=== PATIENT | male | born 1960 | race Caucasian/White ===

== ENCOUNTER 2018-12-16 17:23 | Inpatient (IN) | payer MEDICARE, MEDICAID ==
[2018-12-16] MEDS ORDERED: Sodium Chloride 0.9% 1,000 ML IV STA ×2 (17:47→18:04)
[2018-12-16 17:59] LABS: VENOUS BLOOD GAS BASE EXCESS -9.6 mmol/L (0.0-2.0); VENOUS BLOOD GAS PCO2 32 mmHg (40-60); VENOUS BLOOD GAS PO2 23 mm/Hg (30-55)
[2018-12-16 18:06] LABS: BASO % 0.2 % (0.0-2.0); LYMPH # 1.5 K/uL (1.0-4.3); LYMPH % 10.9 % (20.0-40.0); MEAN CELL VOLUME 102.7 fl (80.0-94.0); MEAN CORPUSCULAR HEMOGLOBIN 32.1 pg (27.0-31.0); MEAN CORPUSCULAR HGB CONC 31.3 g/dL (33.0-37.0); MEAN PLATELET VOLUME 8.8 fl (7.2-11.7); MONO # 0.7 K/uL (0.0-0.8); MONO % 5.2 % (0.0-10.0); NEUT # 11.4 K/uL (1.8-7.0); NEUT % 83.7 % (50.0-75.0); NRBC % 4.2 % (0.0-0.0); RBC 1.34 Mil/uL (4.40-5.90); RED CELL DISTRIBUTION WIDTH 21.1 % (11.5-14.5); WHITE BLOOD COUNT 13.6 K/uL (4.8-10.8)
[2018-12-16] MEDS ORDERED: Potassium CL 10 MEQ/50 ML 50 ML IVPB ONE (18:08)
[2018-12-16] MEDS ORDERED: Potassium Chl 20 mEq in NS 1,000 ML IV STA (18:09)
[2018-12-16 18:12] LABS: INR 1.2; PROTHROMBIN TIME 13.1 Seconds (9.8-13.1)
--- NOTE | 2018-12-16 18:13 | ED PDOC ---
HPI: General Adult Time Seen by Provider: 12/16/18 17:32 Chief Complaint (Nursing): Altered Mental Status Chief Complaint (Provider): Weakness History Per: Family (sister) History/Exam Limitations: clinical condition Onset/Duration Of Symptoms: Days (x1 week) Current Symptoms Are (Timing): Still Present Additional Complaint(s): 58 year old male with a history of schizophrenia, anxiety and depression presents to the ED with weakness. All history was obtained from sister due to patients clinical condition. As per sister, patient stated he was going on a diet a week ago for which he no longer needed to eat. Patient has not eaten for a week but drinks a lot of water and has been extremely thirsty. Two days ago, patient attempted to get out of bed but fell. He has not attempted getting out of bed since because he is too weak. Patient denies any pain. He is unable to clarify why he went on the diet. Patient was formerly obese according to sister, but he has lost a tremendous amount of weight over the last 2 years. PMD: Yvette Morris Past Medical History Reviewed: Historical Data, Nursing Documentation, Vital Signs Vital Signs: Last Vital Signs Temp 98.4 F 12/16/18 18:01 Pulse 96 H 12/16/18 18:01 Resp 20 12/16/18 18:01 BP 81/42 L 12/16/18 18:01 Pulse Ox 100 12/16/18 18:01 Primary Care Provider: Non [facility] Provider, - Medical History PMH: Anemia, Anxiety, Depression, HTN, Schizophrenia Denies: Chronic Kidney Disease - Surgical History Surgical History: No Surg Hx - Family History Family History: States: Hypertension - Social History Current smoker - smoking cessation education provided: Yes Ex-Smoker (has not smoked in the last 12 months): No Alcohol: None Drugs: Denies - Immunization History Hx Tetanus Toxoid Vaccination: No Hx Influenza Vaccination: No Hx Pneumococcal Vaccination: No - Home Medications Home Medications: Ambulatory Orders Medication Instructions Recorded Aspirin [Aspirin Low Dose] 81 mg PO DAILY 04/06/15 Clonazepam 1 mg PO HS 04/06/15 Enalapril Maleate 20 mg PO DAILY 04/06/15 Ergocalciferol (Vitamin D2) 5,000 units PO QWK 04/06/15 [Vitamin D2] Fenofibrate 160 mg PO HS 04/06/15 Olanzapine 20 mg PO DAILY 04/06/15 - Allergies Allergies/Adverse Reactions: Allergies Allergy/AdvReac Type Severity Reaction Status Date / Time No Known Allergies Allergy Verified 04/06/15 12:04 Review of Systems Review Of Systems: ROS cannot be obtained secondary to pt's inabilty to answer questions. Physical Exam - Reviewed Nursing Documentation Reviewed: Yes Vital Signs Reviewed: Yes - Physical Exam Appears: Positive for: No Acute Distress (cachectic, unkempt ) Head Exam: Positive for: NORMOCEPHALIC (with temporal wasting ) Skin: Positive for: Normal Color (but poor skin turgor ) Eye Exam: Positive for: EOMI, PERRL ENT: Positive for: Other (dry mucous membranes) Neck: Positive for: Painless ROM, Trachea Midline Cardiovascular/Chest: Positive for: Regular Rate, Rhythm. Negative for: Murmur Respiratory: Positive for: Normal Breath Sounds. Negative for: Respiratory Distress Gastrointestinal/Abdominal: Positive for: Soft. Negative for: Tenderness Rectal: Positive for: Rectal Tone Is: (normal). Negative for: Black Stool, Other (gross blood) Extremity: Positive for: Other (poor muscle bulk) Lymphatic: Negative for: Adenopathy Neurological/Psych: Positive for: Awake, Alert, Oriented (x1), Other (4+/5 strength in all extremities). Negative for: Motor/Sensory Deficits, Facial Droop - Laboratory Results Result Diagrams: 12/17/18 04:35 12/17/18 04:35 Lab Results: pO2 23 mm/Hg (30-55) L 12/16/18 17:50 VBG pH 7.30 (7.32-7.43) L 12/16/18 17:50 VBG pCO2 32 mmHg (40-60) L 12/16/18 17:50 VBG HCO3 15.7 mmol/L 12/16/18 17:50 VBG Total CO2 16.7 mmol/L (22-28) L 12/16/18 17:50 VBG O2 Sat (Calc) 44.4 % (40-65) 12/16/18 17:50 VBG Base Excess -9.6 mmol/L (0.0-2.0) L 12/16/18 17:50 VBG Potassium 3.4 mmol/L (3.6-5.2) L 12/16/18 17:50 Sodium 143.0 mmol/L (132-148) 12/16/18 17:50 Chloride 114.0 mmol/L (98-107) H 12/16/18 17:50 Glucose 217 mg/dL (75-110) H 12/16/18 17:50 Lactate 4.1 mmol/L (0.7-2.1) H* 12/16/18 17:50 FiO2 21.0 % 12/16/18 17:50 Crit Value Called To hellen Conteh md 12/16/18 17:50 Crit Value Called By Carlos Manuel mas 12/16/18 17:50 Crit Value Read Back Y 12/16/18 17:50 Blood Gas Notified Time 17512/16/18 17:50 - ECG O2 Sat by Pulse Oximetry: 100 (RA) Pulse Ox Interpretation: Normal - Radiology X-Ray Interpretation: No Acute Disease - Critical Care Total Time (In Min): 30 Documented Critical Care: Time excludes all time spent performint seperately bi llable procedures Medical Decision Making Medical Decision Making: Time: 1740 Impression: weakness Differentials include but are not limited to: Failure to thrive, dehydration, electrolyte abnormalities, DKA, decompensated schizophrenia, anemia Plan: --Type and screen --VBG --CT Head w/o contrast --EKG --Alcohol serum --Ammonia --BNP --CMP --Lipase --Magnesium --Phosphorus --TSH --Troponin --U dip --CBC --PTT --PT/INR --CXR --Glucose --IV fluids --blood culture Time: 1803 --VBG demonstrated lactate >4 --Code sepsis activated. Urine culture and urinalysis ordered. 1834 --Hgb critically low. elevated lactic acid likely due to severe anemia and not acute infection. --DW sister findings and need for transfusion. She reports pt has history of this and had transfusion in the past, up to "6 bags". --PITER [facility] Coordinator for ICU placement --PITER [facility] for Dr Morris PMD 1999 --PITER [facility]. --Due to current renal function, unable to have CT with IV contrast as requested. Scribe Attestation: Documented by Edna Martini, acting as a scribe for Hellen Conteh MD. Provider Scribe Attestation: All medical record entries made by the Scribe were at my direction and personally dictated by me. I have reviewed the chart and agree that the record accurately reflects my personal performance of the history, physical exam, medical decision making, and the department course for this patient. I have also personally directed, reviewed, and agree with the discharge instructions and disposition. Disposition - Clinical Impression Clinical Impression: Severe anemia, Schizophrenia - Disposition Disposition Time: 18:45 Condition: CRITICAL - Pt Status Changed To: Hospital Disposition Of: Inpatient - Admit Certification Admit to Inpatient:: After my assessment, the patient will require hospitalization for at least two midnights. This is because of the severity of symptoms shown, intensity of services needed, and/or the medical risk in this patient being treated as an outpatient. - POA Present On Arrival: Falls Or Trauma
[2018-12-16 18:14] LABS: HEMOGLOBIN 4.3 g/dL (12.0-18.0)
[2018-12-16] MEDS ORDERED: Potassium CL 10 MEQ/50 ML 50 ML ONE (18:17)
--- NOTE | 2018-12-16 18:18 | RAD ---
Date of service: 12/16/2018 HISTORY: weakness COMPARISON: No prior. FINDINGS: LUNGS: No active pulmonary disease. PLEURA: No significant pleural effusion identified, no pneumothorax apparent. CARDIOVASCULAR: No atherosclerotic calcification present Normal. OSSEOUS STRUCTURES: No significant abnormalities. VISUALIZED UPPER ABDOMEN: Normal. OTHER FINDINGS: None. IMPRESSION: No active disease.
[2018-12-16 18:32] LABS: ALB/GLOB RATIO 1.2 (1.0-2.1); ALBUMIN 3.2 g/dL (3.5-5.0); ALT/SGPT 31 U/L (21-72); AST/SGOT 20 U/L (17-59); BLOOD UREA NITROGEN 92 mg/dl (9-20); CALCIUM 8.6 mg/dL (8.4-10.2); GFR NON-AFRICAN AMERICAN 39; LIPASE 250 U/L (23-300)
[2018-12-16 18:43] LABS: B-TYPE NATRIURETIC PEPTIDE 400 pg/ml (0-900)
--- NOTE | 2018-12-16 19:11 | CT ---
Date of service: 12/16/2018 PROCEDURE: CT HEAD WITHOUT CONTRAST. HISTORY: severe weakness COMPARISON: None available. TECHNIQUE: Axial computed tomography images were obtained through the head/brain without intravenous contrast. Supplemental Coronal and Sagittal projections created and reviewed. Radiation dose: Total exam DLP = 815.63 mGy-cm. This CT exam was performed using one or more of the following dose reduction techniques: Automated exposure control, adjustment of the mA and/or kV according to patient size, and/or use of iterative reconstruction technique. FINDINGS: HEMORRHAGE: No intracranial hemorrhage. BRAIN: No mass effect or edema. Cortical and cerebellar atrophy, periventricular small vessel disease. VENTRICLES: Unremarkable. No hydrocephalus. CALVARIUM: Unremarkable. PARANASAL SINUSES: Unremarkable as visualized. No significant inflammatory changes. MASTOID AIR CELLS: Unremarkable as visualized. No inflammatory changes. OTHER FINDINGS: None. IMPRESSION: No acute intracranial abnormalities. No significant findings to account for the clinical presentation.
[2018-12-16 19:39] LABS: PARTIAL THROMBOPLASTIN TIME 19.2 Seconds (25.6-37.1)
[2018-12-16 20:23] LABS: SQUAMOUS EPITHIAL < 1 /hpf (0-5); URINE BILIRUBIN NEGATIVE (NEGATIVE); URINE BLOOD SMALL (NEGATIVE); URINE CLARITY CLOUDY (Clear); URINE COLOR YELLOW (YELLOW); URINE GLUCOSE (UA) NEG (NEGATIVE); URINE HYALINE CAST >20 /hpf (0-2); URINE LEUKOCYTE ESTERASE TRACE Leu/uL (Negative); URINE PROTEIN 30 mg/dL (NEGATIVE); URINE UROBILINOGEN 0.2-1.0 mg/dL (0.2-1.0)
[2018-12-16] MEDS ORDERED: Potassium Chl 20 mEq in NS 1,000 ML IV ONE (20:45)
--- NOTE | 2018-12-16 21:42 | CP.CCUPN ---
CCU Subjective - Physician Review Subjective (Free Text): Available ER notes, labs, and CXR reviewed, no family available, lethargic patient, poor historian: 58M BIBA from home with reports of generalized weakness , recent falls and AMS according to sister. In ER, initial vitals were normotensive, and then became hypotensive 80/40 an hour later. Given 3 liters fluid challenge and after lactate returned elevated to 4.1, Code Sepsis called. Additional fluids had marginal effects, and when HGb returned at 4.3, PRBCs ordered. No c/o of abdominal discomfort, melena, BRBPR, N/ V were reported. PMH significant for recent Obesity and undergoing extreme dieting with weight loss summary of over 200lbs over the past year; HTN, anemia due to bleeding DU in 2013, required IR embolization of GDA bleed. Psych history includes Schizophrenia with suicide attempts and, major depression. Presently appears lethargic, slow verbalizations to questions, pale and chronically ill. VS reviewed; Afebrile, HR 100, BP 95/50, RR 20, 100% on RA ROS: No other pertinent negs or positive on 10+ system review obtainable. Allergies: NKDA Last known Meds: ASA< Clonazepam, Enalapril, Vit D, Fenofibrate, Olanzapine. Other PMSFH: All other Nursing and physician documentation reviewed to date; no new pertinent info noted relevant to current medical problems. EXAM- HEENT: no icterus, pupils equal, 3 mm and reactive, no gaze preference, no nystagmus NECK: no visible JVD, supple, carotids equal upstroke bilat/no bruits CHEST: decreased BS L base, no wheezes audible HEART: regular, distant, S1S2, no murmur audible, no rubs. ABD: soft, minimal distention, no tenderness; BS hypoactive EXT: no calf tenderness, no palpable cords, distal pulses intact and symmetrical, no cyanosis, no clubbing. NEURO: + tone, withdraws to pain all extremities, no clonus. SKIN: no rashes LABS: WBC= 13.6 HGB= 4.3 with macrocytic indicies PLTs = 277K Coags: INR =1.2, PTT low normal. 7.30/32/253 with VBG 44.4% sat'n Lactate= 4.1 Na= 141 K= 3.5 Cl= 114 HCO3= 14 BUN/Cr= 92/1.8 BS= 274 Trop negative x1. BNP = 400 Lipase normal Ammonia normal CXR: (my interp) clear bilat, no obvious consolidation. EKG: Sinus 95/min, normal axis, r/o posterior wall SD IMPRESSION / MAJOR PROBLEMS NOW: 1. Severe Anemia , r/o GI Bleed, versus severe malnutrition 2. Lactic Acidosis 2' hypovolemic shock, no evidence of Severe Sepsis / Shock . 3. Azotemia / Dehydration, no h/o CKD 4. Metabolic Encephalopathy, r/o other occult drug/ medication effect 5. h/o Psychoactive Disorder PLAN: 1. IV fluid challenge, PRBCs already ordered in ER. 2. Panculture, repeat serial lactates within 4 hours from initial study. No gross hypoperfusional state noted. If lactates do not improve, ECHO for LV fx. 3. Empiric abx coverage in case of Upper GI Bleed. No clinical stigmata nor h/o portal HTN / variceal hemorrhage 4. PPi drip, GI consult eval. 5. Vit B12 / Folate levels, TSH , Cortisol testing. 6. Urine Tox / Coma panel testing; CT Brain. 7. Serial Trop testing and repeat EKG. 8. See orders.
[2018-12-16] MEDS ORDERED: Piperacillin/Tazobact 3.375 GM in Sodium Chloride 0.9% 100 ML IVPB STA (21:48)
[2018-12-17] MEDS: Insulin Regular 100 units/ml SC SCH ×5 (00:05→22:55)
[2018-12-17] MEDS: Pantoprazole 40 MG in Sodium Chloride 0.9% 100 ML IVPB SCH ×5 (01:45→23:15)
--- NOTE | 2018-12-17 02:00 | PCM.PROC ---
Procedures Attestation:: I certify that I have explained the specified Operation(s) or Procedure(s), risks, benefits and reasonable alternatives to the Patient and/or other person responsible. The opportunity was given to ask questions and all questions answered - Central Line Placement Right Femoral Triple Lumen Catheter Aseptic technique was employed throughout the procedure: Hand Hygiene done prior to procedure, Full sterile barriers (mask, hair cover, sterile gown, sterile gloves), Full body sterile drape, Chloraprep Antiseptic: 2 minute prep for Femoral CVP Time Out Performed: No Pt. Placed on Pulse Ox Monitor: Yes Central Line Prep: Chlorhexidine-Alcohol Combination Local Anesthesia Used: Lidocaine 2% Amount of Anesthesia Used (mls): 5 Ultrasound Used for Placement: Yes Central Line Lumen Inserted: triple Central Line Length: 20 cm Post Procedure: Sutured in Place, Good Blood Return, All Ports Aspirated, Flushed, Capped, Sterile Dressing Applied Secured by: Suture Post procedure dressing: Clear vapor permeable Post Procedure X-Ray: No Patient Tolerated Procedure: Well, No Complications Immediate Complications: None Additional Comments: Central line placed to infuse vasopressors and medications.
[2018-12-17] MEDS: Lactated Ringer's 1,000 ML IV SCH ×3 (02:16→23:13)
[2018-12-17 03:03] VITALS: BMI 19.6
[2018-12-17] MEDS ORDERED: Sodium Chloride 0.9% 1,000 ML IV SCH (03:15)
[2018-12-17 06:49] LABS: BASO % 0.3 % (0.0-2.0); EOS % 0.1 % (0.0-4.0); LYMPH % 17.6 % (20.0-40.0); MEAN CELL VOLUME 93.6 fl (80.0-94.0); MEAN CORPUSCULAR HEMOGLOBIN 30.6 pg (27.0-31.0); MEAN CORPUSCULAR HGB CONC 32.7 g/dL (33.0-37.0); MEAN PLATELET VOLUME 8.8 fl (7.2-11.7); MONO # 1.1 K/uL (0.0-0.8); MONO % 9.3 % (0.0-10.0); NEUT # 8.5 K/uL (1.8-7.0); NEUT % 72.7 % (50.0-75.0); NRBC % 0.5 % (0.0-0.0); RBC 1.73 Mil/uL (4.40-5.90); RED CELL DISTRIBUTION WIDTH 16.9 % (11.5-14.5); WHITE BLOOD COUNT 11.6 K/uL (4.8-10.8)
[2018-12-17 06:59] LABS: HEMOGLOBIN 5.3 g/dL (12.0-18.0)
[2018-12-17 07:18] LABS: LDL CHOLESTEROL 44 mg/dL (0-129)
--- NOTE | 2018-12-17 08:08 | CP.CCUPN ---
CCU Subjective - Physician Review Events Since Last Encounter (Free Text): Patient awake, no distress, no fever, no vomiting, no pressors, events reviewed CCU Objective - Vital Signs / Intake & Output Vital Signs (Last 4 hours): Vital Signs Pulse Resp BP Pulse Ox 12/17/18 07:00 98 H 24 89/46 L 100 12/17/18 06:00 94 H 20 90/47 L 98 12/17/18 05:00 87 21 109/51 L 100 Intake and Output (Last 8hrs): Intake & Output 12/16/18 12/17/18 12/17/18 22:59 06:59 14:59 Intake Total 0 5925 Output Total 800 Balance 0 5125 Weight 131 lb 138 lb Intake: IV 5214 Intake, Piggyback 51 TPN/PPN 10 Blood Product 0 550 Red Blood Cells Cpd As1 225 Lr Unit [id number] Red Blood Cells Cpd As1 0 325 Lr Unit [id number] Other 100 Red Blood Cells Cpd As1 100 Lr Unit [id number] Output: Urine 800 2-way Urethral 800 - Physical Exam Head: Positive for: Atraumatic, Normocephalic Pupils: Positive for: PERRL Extroacular Muscles: Positive for: EOMI Conjunctiva: Positive for: Normal Mouth: Positive for: Dry Pharnyx: Positive for: Normal Nose (External): Positive for: Atraumatic Neck: Positive for: Normal Range of Motion Respiratory/Chest: Positive for: Clear to Auscultation Cardiovascular: Positive for: Regular Rate and Rhythm Abdomen: Positive for: Normal Bowel Sounds Upper Extremity: Positive for: Normal Inspection Lower Extremity: Positive for: Normal Inspection Psychiatric: Positive for: Alert - Medications Active Medications: Active Medications Generic Name Dose Route Start Last Admin Trade Name Freq PRN Reason Stop Dose Admin Pantoprazole Sodium 40 mg/ 100 mls @ 20 mls/hr 12/16/18 18:45 12/17/18 04:12 Sodium Chloride IVPB 20 mls/hr Q5H MATT Administration 8 MG/HR Piperacillin Sod/Tazobactam 100 mls @ 100 mls/hr 12/17/18 01:00 12/17/18 01:30 Sod 2.25 gm/ Sodium Chloride IVPB 100 mls/hr Q8 MATT Administration Protocol Lactated Ringer's 1,000 mls @ 100 mls/hr 12/16/18 22:00 12/17/18 02:16 Lactated Ringer's IV 100 mls/hr .Q10H MATT Administration Norepinephrine Bitartrate 4 mg 254 mls @ 9.53 mls/hr 12/17/18 01:45 12/17/18 03:30 / Dextrose IV 10 mcg/min .Q24H MATT 38.1 mls/hr Titration Protocol 2.5 MCG/MIN Sodium Chloride 1,000 mls @ 1,000 mls/hr 12/17/18 03:15 12/17/18 03:14 Sodium Chloride 0.9% IV 12/18/18 03:02 1,000 mls/hr .Q1H MATT Administration Insulin Human Regular 0 units 12/16/18 23:00 12/17/18 07:41 Humulin R SC Not Given ACCU-CHECK MATT Protocol - Patient Studies Lab Studies: Lab Studies 12/17/18 12/17/18 12/17/18 Range/Units 04:35 04:35 04:35 WBC 11.6 H (4.8-10.8) K/uL RBC 1.73 L (4.40-5.90) Mil/uL Hgb 5.3 L* (12.0-18.0) g/dL Hct 16.2 L (35.0-51.0) % MCV 93.6 D (80.0-94.0) fl MCH 30.6 (27.0-31.0) pg MCHC 32.7 L (33.0-37.0) g/dL RDW 16.9 H (11.5-14.5) % Plt Count 163 D (130-400) K/uL MPV 8.8 (7.2-11.7) fl Neut % (Auto) 72.7 (50.0-75.0) % Lymph % (Auto) 17.6 L (20.0-40.0) % [place] % (Auto) 9.3 (0.0-10.0) % Eos % (Auto) 0.1 (0.0-4.0) % Baso % (Auto) 0.3 (0.0-2.0) % Neut # (Auto) 8.5 H (1.8-7.0) K/uL Lymph # (Auto) 2.0 (1.0-4.3) K/uL [place] # (Auto) 1.1 H (0.0-0.8) K/uL Eos # (Auto) 0.0 (0.0-0.7) K/uL Baso # (Auto) 0.0 (0.0-0.2) K/uL PT (9.8-13.1) Seconds INR APTT (25.6-37.1) Seconds pO2 (30-55) mm/Hg VBG pH (7.32-7.43) VBG pCO2 (40-60) mmHg VBG HCO3 mmol/L VBG Total CO2 (22-28) mmol/L VBG O2 Sat (Calc) (40-65) % VBG Base Excess (0.0-2.0) mmol/L VBG Potassium (3.6-5.2) mmol/L Sodium (132-148) mmol/L Chloride (98-107) mmol/L Glucose (75-110) mg/dL Lactate (0.7-2.1) mmol/L FiO2 % Crit Value Called To Crit Value Called By Crit Value Read Back Blood Gas Notified Time Potassium (3.6-5.0) MMOL/L Carbon Dioxide (22-30) mmol/L Anion Gap (10-20) BUN (9-20) mg/dl Creatinine (0.8-1.5) mg/dl Est GFR ( Amer) Est GFR (Non-Af Amer) POC Glucose (mg/dL) (65-110) mg/dL Random Glucose (75-110) mg/dL Lactic Acid 0.8 (0.7-2.1) mmol/L Calcium (8.4-10.2) mg/dL Phosphorus (2.5-4.5) mg/dl Magnesium (1.6-2.3) MG/DL Total Bilirubin (0.2-1.3) mg/dl AST (17-59) U/L ALT (21-72) U/L Alkaline Phosphatase (38-126) U/L Ammonia (9-33) umol/L Troponin I (0.00-0.120) ng/mL NT-Pro-B Natriuret Pep (0-900) pg/ml Total Protein (6.3-8.2) G/DL Albumin (3.5-5.0) g/dL Globulin (2.2-3.9) gm/dL Albumin/Globulin Ratio (1.0-2.1) LDL Cholesterol Direct 44 (0-129) mg/dL Lipase (23-300) U/L Vitamin B12 185 L (239-931) pg/mL TSH 3rd Generation 0.52 (0.46-4.68) mIU/ML Venous Blood Potassium (3.6-5.2) mmol/L Urine Color (YELLOW) Urine Clarity (Clear) Urine pH (5.0-8.0) Ur Specific [place] (1.003-1.030) Urine Protein (NEGATIVE) mg/dL Urine Glucose (UA) (NEGATIVE) mg/dL Urine Ketones (NEGATIVE) mg/dL Urine Blood (NEGATIVE) Urine Nitrate (NEGATIVE) Urine Bilirubin (NEGATIVE) Urine Urobilinogen (0.2-1.0) mg/dL Ur Leukocyte Esterase (Negative) Ever/uL Urine RBC (Auto) (0-3) /hpf Urine Microscopic WBC (0-5) /hpf Ur Squamous Epith Cells (0-5) /hpf Hyaline Casts (0-2) /hpf Alcohol, Quantitative (0-10) mg/dl Blood Type Antibody Screen Crossmatch BBK History Checked 12/16/18 12/16/18 12/16/18 Range/Units 21:46 20:15 18:21 WBC (4.8-10.8) K/uL RBC (4.40-5.90) Mil/uL Hgb (12.0-18.0) g/dL Hct (35.0-51.0) % MCV (80.0-94.0) fl MCH (27.0-31.0) pg MCHC (33.0-37.0) g/dL RDW (11.5-14.5) % Plt Count (130-400) K/uL MPV (7.2-11.7) fl Neut % (Auto) (50.0-75.0) % Lymph % (Auto) (20.0-40.0) % [place] % (Auto) (0.0-10.0) % Eos % (Auto) (0.0-4.0) % Baso % (Auto) (0.0-2.0) % Neut # (Auto) (1.8-7.0) K/uL Lymph # (Auto) (1.0-4.3) K/uL [place] # (Auto) (0.0-0.8) K/uL Eos # (Auto) (0.0-0.7) K/uL Baso # (Auto) (0.0-0.2) K/uL PT (9.8-13.1) Seconds INR APTT (25.6-37.1) Seconds pO2 (30-55) mm/Hg VBG pH (7.32-7.43) VBG pCO2 (40-60) mmHg VBG HCO3 mmol/L VBG Total CO2 (22-28) mmol/L VBG O2 Sat (Calc) (40-65) % VBG Base Excess (0.0-2.0) mmol/L VBG Potassium (3.6-5.2) mmol/L Sodium (132-148) mmol/L Chloride (98-107) mmol/L Glucose (75-110) mg/dL Lactate (0.7-2.1) mmol/L FiO2 % Crit Value Called To Crit Value Called By Crit Value Read Back Blood Gas Notified Time Potassium (3.6-5.0) MMOL/L Carbon Dioxide (22-30) mmol/L Anion Gap (10-20) BUN (9-20) mg/dl Creatinine (0.8-1.5) mg/dl Est GFR ( Amer) Est GFR (Non-Af Amer) POC Glucose (mg/dL) (65-110) mg/dL Random Glucose (75-110) mg/dL Lactic Acid 2.8 H (0.7-2.1) mmol/L Calcium (8.4-10.2) mg/dL Phosphorus (2.5-4.5) mg/dl Magnesium (1.6-2.3) MG/DL Total Bilirubin (0.2-1.3) mg/dl AST (17-59) U/L ALT (21-72) U/L Alkaline Phosphatase (38-126) U/L Ammonia < 9 L (9-33) umol/L Troponin I (0.00-0.120) ng/mL NT-Pro-B Natriuret Pep (0-900) pg/ml Total Protein (6.3-8.2) G/DL Albumin (3.5-5.0) g/dL Globulin (2.2-3.9) gm/dL Albumin/Globulin Ratio (1.0-2.1) LDL Cholesterol Direct (0-129) mg/dL Lipase (23-300) U/L Vitamin B12 (239-931) pg/mL TSH 3rd Generation (0.46-4.68) mIU/ML Venous Blood Potassium (3.6-5.2) mmol/L Urine Color Yellow (YELLOW) Urine Clarity Cloudy (Clear) Urine pH 5.0 (5.0-8.0) Ur Specific [place] 1.019 (1.003-1.030) Urine Protein 30 (NEGATIVE) mg/dL Urine Glucose (UA) Neg (NEGATIVE) mg/dL Urine Ketones Negative (NEGATIVE) mg/dL Urine Blood Small (NEGATIVE) Urine Nitrate Negative (NEGATIVE) Urine Bilirubin Negative (NEGATIVE) Urine Urobilinogen 0.2-1.0 (0.2-1.0) mg/dL Ur Leukocyte Esterase Trace (Negative) Ever/uL Urine RBC (Auto) < 1 (0-3) /hpf Urine Microscopic WBC 1 (0-5) /hpf Ur Squamous Epith Cells < 1 (0-5) /hpf Hyaline Casts >20 H (0-2) /hpf Alcohol, Quantitative (0-10) mg/dl Blood Type Antibody Screen Crossmatch BBK History Checked 12/16/18 12/16/18 12/16/18 Range/Units 17:58 17:55 17:51 WBC 13.6 H (4.8-10.8) K/uL RBC 1.34 L (4.40-5.90) Mil/uL Hgb 4.3 L* (12.0-18.0) g/dL Hct 13.7 L (35.0-51.0) % MCV 102.7 H (80.0-94.0) fl MCH 32.1 H (27.0-31.0) pg MCHC 31.3 L (33.0-37.0) g/dL RDW 21.1 H (11.5-14.5) % Plt Count 277 (130-400) K/uL MPV 8.8 (7.2-11.7) fl Neut % (Auto) 83.7 H (50.0-75.0) % Lymph % (Auto) 10.9 L (20.0-40.0) % [place] % (Auto) 5.2 (0.0-10.0) % Eos % (Auto) 0.0 (0.0-4.0) % Baso % (Auto) 0.2 (0.0-2.0) % Neut # (Auto) 11.4 H (1.8-7.0) K/uL Lymph # (Auto) 1.5 (1.0-4.3) K/uL [place] # (Auto) 0.7 (0.0-0.8) K/uL Eos # (Auto) 0.0 (0.0-0.7) K/uL Baso # (Auto) 0.0 (0.0-0.2) K/uL PT (9.8-13.1) Seconds INR APTT (25.6-37.1) Seconds pO2 (30-55) mm/Hg VBG pH (7.32-7.43) VBG pCO2 (40-60) mmHg VBG HCO3 mmol/L VBG Total CO2 (22-28) mmol/L VBG O2 Sat (Calc) (40-65) % VBG Base Excess (0.0-2.0) mmol/L VBG Potassium (3.6-5.2) mmol/L Sodium (132-148) mmol/L Chloride (98-107) mmol/L Glucose (75-110) mg/dL Lactate (0.7-2.1) mmol/L FiO2 % Crit Value Called To Crit Value Called By Crit Value Read Back Blood Gas Notified Time Potassium (3.6-5.0) MMOL/L Carbon Dioxide (22-30) mmol/L Anion Gap (10-20) BUN (9-20) mg/dl Creatinine (0.8-1.5) mg/dl Est GFR ( Amer) Est GFR (Non-Af Amer) POC Glucose (mg/dL) 274 H (65-110) mg/dL Random Glucose (75-110) mg/dL Lactic Acid (0.7-2.1) mmol/L Calcium (8.4-10.2) mg/dL Phosphorus (2.5-4.5) mg/dl Magnesium (1.6-2.3) MG/DL Total Bilirubin (0.2-1.3) mg/dl AST (17-59) U/L ALT (21-72) U/L Alkaline Phosphatase (38-126) U/L Ammonia (9-33) umol/L Troponin I (0.00-0.120) ng/mL NT-Pro-B Natriuret Pep (0-900) pg/ml Total Protein (6.3-8.2) G/DL Albumin (3.5-5.0) g/dL Globulin (2.2-3.9) gm/dL Albumin/Globulin Ratio (1.0-2.1) LDL Cholesterol Direct (0-129) mg/dL Lipase (23-300) U/L Vitamin B12 (239-931) pg/mL TSH 3rd Generation (0.46-4.68) mIU/ML Venous Blood Potassium (3.6-5.2) mmol/L Urine Color (YELLOW) Urine Clarity (Clear) Urine pH (5.0-8.0) Ur Specific [place] (1.003-1.030) Urine Protein (NEGATIVE) mg/dL Urine Glucose (UA) (NEGATIVE) mg/dL Urine Ketones (NEGATIVE) mg/dL Urine Blood (NEGATIVE) Urine Nitrate (NEGATIVE) Urine Bilirubin (NEGATIVE) Urine Urobilinogen (0.2-1.0) mg/dL Ur Leukocyte Esterase (Negative) Ever/uL Urine RBC (Auto) (0-3) /hpf Urine Microscopic WBC (0-5) /hpf Ur Squamous Epith Cells (0-5) /hpf Hyaline Casts (0-2) /hpf Alcohol, Quantitative (0-10) mg/dl Blood Type B POSITIVE Antibody Screen Negative Crossmatch See Detail BBK History Checked Patient has bt 12/16/18 12/16/18 12/16/18 Range/Units 17:51 17:51 17:50 WBC (4.8-10.8) K/uL RBC (4.40-5.90) Mil/uL Hgb (12.0-18.0) g/dL Hct (35.0-51.0) % MCV (80.0-94.0) fl MCH (27.0-31.0) pg MCHC (33.0-37.0) g/dL RDW (11.5-14.5) % Plt Count (130-400) K/uL MPV (7.2-11.7) fl Neut % (Auto) (50.0-75.0) % Lymph % (Auto) (20.0-40.0) % [place] % (Auto) (0.0-10.0) % Eos % (Auto) (0.0-4.0) % Baso % (Auto) (0.0-2.0) % Neut # (Auto) (1.8-7.0) K/uL Lymph # (Auto) (1.0-4.3) K/uL [place] # (Auto) (0.0-0.8) K/uL Eos # (Auto) (0.0-0.7) K/uL Baso # (Auto) (0.0-0.2) K/uL PT 13.1 (9.8-13.1) Seconds INR 1.2 APTT 19.2 L (25.6-37.1) Seconds pO2 23 L (30-55) mm/Hg VBG pH 7.30 L (7.32-7.43) VBG pCO2 32 L (40-60) mmHg VBG HCO3 15.7 mmol/L VBG Total CO2 16.7 L (22-28) mmol/L VBG O2 Sat (Calc) 44.4 (40-65) % VBG Base Excess -9.6 L (0.0-2.0) mmol/L VBG Potassium 3.4 L (3.6-5.2) mmol/L Sodium 141 143.0 (132-148) mmol/L Chloride 114 H 114.0 H (98-107) mmol/L Glucose 217 H (75-110) mg/dL Lactate 4.1 H* (0.7-2.1) mmol/L FiO2 21.0 % Crit Value Called To hellen Conteh md Crit Value Called By Carlos Manuel mas Crit Value Read Back Y Blood Gas Notified Time 1368 Potassium 3.5 L (3.6-5.0) MMOL/L Carbon Dioxide 14 L (22-30) mmol/L Anion Gap 17 (10-20) BUN 92 H (9-20) mg/dl Creatinine 1.8 H (0.8-1.5) mg/dl Est GFR ( Amer) 47 Est GFR (Non-Af Amer) 39 POC Glucose (mg/dL) (65-110) mg/dL Random Glucose 205 H (75-110) mg/dL Lactic Acid (0.7-2.1) mmol/L Calcium 8.6 (8.4-10.2) mg/dL Phosphorus 4.9 H (2.5-4.5) mg/dl Magnesium 2.8 H (1.6-2.3) MG/DL Total Bilirubin 0.3 (0.2-1.3) mg/dl AST 20 (17-59) U/L ALT 31 (21-72) U/L Alkaline Phosphatase 36 L (38-126) U/L Ammonia (9-33) umol/L Troponin I 0.0440 (0.00-0.120) ng/mL NT-Pro-B Natriuret Pep 400 (0-900) pg/ml Total Protein 5.8 L (6.3-8.2) G/DL Albumin 3.2 L (3.5-5.0) g/dL Globulin 2.6 (2.2-3.9) gm/dL Albumin/Globulin Ratio 1.2 (1.0-2.1) LDL Cholesterol Direct (0-129) mg/dL Lipase 250 (23-300) U/L Vitamin B12 (239-931) pg/mL TSH 3rd Generation 0.32 L (0.46-4.68) mIU/ML Venous Blood Potassium 3.4 L (3.6-5.2) mmol/L Urine Color (YELLOW) Urine Clarity (Clear) Urine pH (5.0-8.0) Ur Specific [place] (1.003-1.030) Urine Protein (NEGATIVE) mg/dL Urine Glucose (UA) (NEGATIVE) mg/dL Urine Ketones (NEGATIVE) mg/dL Urine Blood (NEGATIVE) Urine Nitrate (NEGATIVE) Urine Bilirubin (NEGATIVE) Urine Urobilinogen (0.2-1.0) mg/dL Ur Leukocyte Esterase (Negative) Ever/uL Urine RBC (Auto) (0-3) /hpf Urine Microscopic WBC (0-5) /hpf Ur Squamous Epith Cells (0-5) /hpf Hyaline Casts (0-2) /hpf Alcohol, Quantitative < 10 (0-10) mg/dl Blood Type Antibody Screen Crossmatch BBK History Checked Laboratory Results - last 24 hr 12/16/18 12/16/18 12/16/18 17:50 17:51 17:51 WBC RBC Hgb Hct MCV MCH MCHC RDW Plt Count MPV Neut % (Auto) Lymph % (Auto) [place] % (Auto) Eos % (Auto) Baso % (Auto) Neut # (Auto) Lymph # (Auto) [place] # (Auto) Eos # (Auto) Baso # (Auto) PT 13.1 INR 1.2 APTT 19.2 L pO2 23 L VBG pH 7.30 L VBG pCO2 32 L VBG HCO3 15.7 VBG Total CO2 16.7 L VBG O2 Sat (Calc) 44.4 VBG Base Excess -9.6 L VBG Potassium 3.4 L Sodium 143.0 141 Chloride 114.0 H 114 H Glucose 217 H Lactate 4.1 H* FiO2 21.0 Crit Value Called To hellen Conteh md Crit Value Called By Carlos Manuel mas Crit Value Read Back Y Blood Gas Notified Time 1759 Potassium 3.5 L Carbon Dioxide 14 L Anion Gap 17 BUN 92 H Creatinine 1.8 H Est GFR ( Amer) 47 Est GFR (Non-Af Amer) 39 POC Glucose (mg/dL) Random Glucose 205 H Lactic Acid Calcium 8.6 Phosphorus 4.9 H Magnesium 2.8 H Total Bilirubin 0.3 AST 20 ALT 31 Alkaline Phosphatase 36 L Ammonia Troponin I 0.0440 NT-Pro-B Natriuret Pep 400 Total Protein 5.8 L Albumin 3.2 L Globulin 2.6 Albumin/Globulin Ratio 1.2 LDL Cholesterol Direct Lipase 250 Vitamin B12 TSH 3rd Generation 0.32 L Venous Blood Potassium 3.4 L Urine Color Urine Clarity Urine pH Ur Specific [place] Urine Protein Urine Glucose (UA) Urine Ketones Urine Blood Urine Nitrate Urine Bilirubin Urine Urobilinogen Ur Leukocyte Esterase Urine RBC (Auto) Urine Microscopic WBC Ur Squamous Epith Cells Hyaline Casts Alcohol, Quantitative < 10 Blood Type Antibody Screen Crossmatch BBK History Checked 12/16/18 12/16/18 12/16/18 17:51 17:55 17:58 WBC 13.6 H RBC 1.34 L Hgb 4.3 L* Hct 13.7 L MCV 102.7 H MCH 32.1 H MCHC 31.3 L RDW 21.1 H Plt Count 277 MPV 8.8 Neut % (Auto) 83.7 H Lymph % (Auto) 10.9 L [place] % (Auto) 5.2 Eos % (Auto) 0.0 Baso % (Auto) 0.2 Neut # (Auto) 11.4 H Lymph # (Auto) 1.5 [place] # (Auto) 0.7 Eos # (Auto) 0.0 Baso # (Auto) 0.0 PT INR APTT pO2 VBG pH VBG pCO2 VBG HCO3 VBG Total CO2 VBG O2 Sat (Calc) VBG Base Excess VBG Potassium Sodium Chloride Glucose Lactate FiO2 Crit Value Called To Crit Value Called By Crit Value Read Back Blood Gas Notified Time Potassium Carbon Dioxide Anion Gap BUN Creatinine Est GFR ( Amer) Est GFR (Non-Af Amer) POC Glucose (mg/dL) 274 H Random Glucose Lactic Acid Calcium Phosphorus Magnesium Total Bilirubin AST ALT Alkaline Phosphatase Ammonia Troponin I NT-Pro-B Natriuret Pep Total Protein Albumin Globulin Albumin/Globulin Ratio LDL Cholesterol Direct Lipase Vitamin B12 TSH 3rd Generation Venous Blood Potassium Urine Color Urine Clarity Urine pH Ur Specific [place] Urine Protein Urine Glucose (UA) Urine Ketones Urine Blood Urine Nitrate Urine Bilirubin Urine Urobilinogen Ur Leukocyte Esterase Urine RBC (Auto) Urine Microscopic WBC Ur Squamous Epith Cells Hyaline Casts Alcohol, Quantitative Blood Type B POSITIVE Antibody Screen Negative Crossmatch See Detail BBK History Checked Patient has bt 12/16/18 12/16/18 12/16/18 18:21 20:15 21:46 WBC RBC Hgb Hct MCV MCH MCHC RDW Plt Count MPV Neut % (Auto) Lymph % (Auto) [place] % (Auto) Eos % (Auto) Baso % (Auto) Neut # (Auto) Lymph # (Auto) [place] # (Auto) Eos # (Auto) Baso # (Auto) PT INR APTT pO2 VBG pH VBG pCO2 VBG HCO3 VBG Total CO2 VBG O2 Sat (Calc) VBG Base Excess VBG Potassium Sodium Chloride Glucose Lactate FiO2 Crit Value Called To Crit Value Called By Crit Value Read Back Blood Gas Notified Time Potassium Carbon Dioxide Anion Gap BUN Creatinine Est GFR ( Amer) Est GFR (Non-Af Amer) POC Glucose (mg/dL) Random Glucose Lactic Acid 2.8 H Calcium Phosphorus Magnesium Total Bilirubin AST ALT Alkaline Phosphatase Ammonia < 9 L Troponin I NT-Pro-B Natriuret Pep Total Protein Albumin Globulin Albumin/Globulin Ratio LDL Cholesterol Direct Lipase Vitamin B12 TSH 3rd Generation Venous Blood Potassium Urine Color Yellow Urine Clarity Cloudy Urine pH 5.0 Ur Specific [place] 1.019 Urine Protein 30 Urine Glucose (UA) Neg Urine Ketones Negative Urine Blood Small Urine Nitrate Negative Urine Bilirubin Negative Urine Urobilinogen 0.2-1.0 Ur Leukocyte Esterase Trace Urine RBC (Auto) < 1 Urine Microscopic WBC 1 Ur Squamous Epith Cells < 1 Hyaline Casts >20 H Alcohol, Quantitative Blood Type Antibody Screen Crossmatch BBK History Checked 12/17/18 12/17/18 12/17/18 04:35 04:35 04:35 WBC 11.6 H RBC 1.73 L Hgb 5.3 L* Hct 16.2 L MCV 93.6 D MCH 30.6 MCHC 32.7 L RDW 16.9 H Plt Count 163 D MPV 8.8 Neut % (Auto) 72.7 Lymph % (Auto) 17.6 L [place] % (Auto) 9.3 Eos % (Auto) 0.1 Baso % (Auto) 0.3 Neut # (Auto) 8.5 H Lymph # (Auto) 2.0 [place] # (Auto) 1.1 H Eos # (Auto) 0.0 Baso # (Auto) 0.0 PT INR APTT pO2 VBG pH VBG pCO2 VBG HCO3 VBG Total CO2 VBG O2 Sat (Calc) VBG Base Excess VBG Potassium Sodium Chloride Glucose Lactate FiO2 Crit Value Called To Crit Value Called By Crit Value Read Back Blood Gas Notified Time Potassium Carbon Dioxide Anion Gap BUN Creatinine Est GFR ( Amer) Est GFR (Non-Af Amer) POC Glucose (mg/dL) Random Glucose Lactic Acid 0.8 Calcium Phosphorus Magnesium Total Bilirubin AST ALT Alkaline Phosphatase Ammonia Troponin I NT-Pro-B Natriuret Pep Total Protein Albumin Globulin Albumin/Globulin Ratio LDL Cholesterol Direct 44 Lipase Vitamin B12 185 L TSH 3rd Generation 0.52 Venous Blood Potassium Urine Color Urine Clarity Urine pH Ur Specific [place] Urine Protein Urine Glucose (UA) Urine Ketones Urine Blood Urine Nitrate Urine Bilirubin Urine Urobilinogen Ur Leukocyte Esterase Urine RBC (Auto) Urine Microscopic WBC Ur Squamous Epith Cells Hyaline Casts Alcohol, Quantitative Blood Type Antibody Screen Crossmatch BBK History Checked Radiology Impressions: Radiology Impressions Chest X-Ray 12/16/18 17:41 IMPRESSION: No active disease. Head CT 12/16/18 17:41 IMPRESSION: No acute intracranial abnormalities. No significant findings to account for the clinical presentation. EKG/Cardiology Studies: Cardiology / EKG Studies 12/17/18 09:00 EKG [ELECTROCARDIOGRAM] DAILY Comment: Mode Of Transportation: Reason For Exam: r/o Posterior TN Fingerstick Blood Sugar Results: 180 Assessment/Plan - Assessment and Plan (Free Text) Assessment: A/P Anemia, ?GI bleeding, schizophrenia, anxiety, depression - Follow up CBC - Transfusion as needed - GI follow up - Continue meds
[2018-12-17 09:57] LABS: GFR NON-AFRICAN AMERICAN > 60
[2018-12-17 09:58] LABS: HDL CHOLESTEROL 23 MG/DL (30-70)
[2018-12-17 09:59] LABS: BLOOD UREA NITROGEN 72 mg/dl (9-20)
[2018-12-17 10:03] LABS: ALBUMIN 1.9 g/dL (3.5-5.0)
[2018-12-17 10:04] LABS: AST/SGOT 22 U/L (17-59)
[2018-12-17 10:05] LABS: ALT/SGPT 29 U/L (21-72)
[2018-12-17 10:07] LABS: CALCIUM 6.9 mg/dL (8.4-10.2)
--- NOTE | 2018-12-17 11:06 | CP.PCM.CON ---
History of Present Illness - History of Present Illness History of Present Illness: Podiatry consult - Dr. Zambrano 58M seen and evaluated at bedside in ICU for elongated dystrophic nails. Resting comfortably in no acute distress. States nails are causing discomfort and pain when trying to put on socks/shoes and trying to pull up bedsheets. Denies any other pedal complaints. Denies n/v/f/c today. Past Patient History - Infectious Disease Hx of Infectious Diseases: None - Past Medical History & Family History Past Medical History?: Yes - Past Social History Alcohol: None Drugs: Denies - CARDIAC Hx Hypertension: Yes - PULMONARY Hx Respiratory Disorders: No - NEUROLOGICAL Hx Neurological Disorder: No - HEENT Hx HEENT Problems: No - RENAL Hx Chronic Kidney Disease: No - ENDOCRINE/METABOLIC Hx Endocrine Disorders: No - HEMATOLOGICAL/ONCOLOGICAL Hx Anemia: Yes - INTEGUMENTARY Hx Dermatological Problems: No - MUSCULOSKELETAL/RHEUMATOLOGICAL Hx Musculoskeletal Disorders: No Hx Falls: Yes - GASTROINTESTINAL Hx Vomiting: Yes (vomitting blood x 1 day) - GENITOURINARY/GYNECOLOGICAL Hx Genitourinary Disorders: No - PSYCHIATRIC Hx Anxiety: Yes Hx Depression: Yes Hx Schizophrenia: Yes - SURGICAL HISTORY Hx Surgeries: No Other/Comment: Rt. 3rd finger surgery - ANESTHESIA Hx Anesthesia: No Hx Anesthesia Reactions: No Hx Malignant Hyperthermia: No Meds Allergies/Adverse Reactions: Allergies Allergy/AdvReac Type Severity Reaction Status Date / Time No Known Allergies Allergy Verified 04/06/15 12:04 - Medications Medications: Current Medications Pantoprazole Sodium 40 mg/ (Sodium Chloride) 100 mls @ 20 mls/hr IVPB Q5H MATT Last Admin: 12/17/18 10:02 Dose: 20 mls/hr Piperacillin Sod/Tazobactam (Sod 2.25 gm/ Sodium Chloride) 100 mls @ 100 mls/hr IVPB Q8 MATT; Protocol Last Admin: 12/17/18 10:03 Dose: 100 mls/hr Lactated Ringer's (Lactated Ringer's) 1,000 mls @ 100 mls/hr IV .Q10H MATT Last Admin: 12/17/18 10:02 Dose: 100 mls/hr Norepinephrine Bitartrate 4 mg (/ Dextrose) 254 mls @ 9.53 mls/hr IV .Q24H MATT; Protocol Last Titration: 05/04/19 10:19 Dose: 15 mcg/min, 57.15 mls/hr Sodium Chloride (Sodium Chloride 0.9%) 1,000 mls @ 1,000 mls/hr IV .Q1H MATT Stop: 12/18/18 03:02 Last Admin: 12/17/18 03:14 Dose: 1,000 mls/hr Insulin Human Regular (Humulin R) 0 units SC ACCU-CHECK MATT; Protocol Last Admin: 12/17/18 07:41 Dose: Not Given Physical Exam - Constitutional Appears: Non-toxic - Head Exam Head Exam: ATRAUMATIC - Extremities Exam Additional comments: VASC: DP and PT pulses mildly palpable; cap refill <3 seconds to digits; no pedal or LE edema noted DERM: elongated, dystrophic, mycotic nails appreciated x 10; hyperkeratotic lesion sub met 1 on right foot; no other open lesions or wounds present ORTHO: mild tenderness to palpation at digits b/l 2/2 to nail dystrophy NEURO: gross and protective sensation diminished - Neurological Exam Neurological exam: Alert - Psychiatric Exam Psychiatric exam: Normal Affect Results - Vital Signs Recent Vital Signs: Last Vital Signs Temp 97.9 F 12/17/18 10:57 Pulse 94 H 12/17/18 10:57 Resp 24 12/17/18 10:57 BP 97/44 L 12/17/18 10:57 Pulse Ox 100 12/17/18 10:00 - Labs Result Diagrams: 12/17/18 04:35 12/17/18 04:35 Labs: Laboratory Results - last 24 hr 12/16/18 12/16/18 12/16/18 17:50 17:51 17:51 WBC RBC Hgb Hct MCV MCH MCHC RDW Plt Count MPV Neut % (Auto) Lymph % (Auto) [place] % (Auto) Eos % (Auto) Baso % (Auto) Neut # (Auto) Lymph # (Auto) [place] # (Auto) Eos # (Auto) Baso # (Auto) PT 13.1 INR 1.2 APTT 19.2 L pO2 23 L VBG pH 7.30 L VBG pCO2 32 L VBG HCO3 15.7 VBG Total CO2 16.7 L VBG O2 Sat (Calc) 44.4 VBG Base Excess -9.6 L VBG Potassium 3.4 L Sodium 143.0 141 Chloride 114.0 H 114 H Glucose 217 H Lactate 4.1 H* FiO2 21.0 Crit Value Called To hellen Conteh md Crit Value Called By Carlos Manuel mas Crit Value Read Back Y Blood Gas Notified Time 1759 Potassium 3.5 L Carbon Dioxide 14 L Anion Gap 17 BUN 92 H Creatinine 1.8 H Est GFR ( Amer) 47 Est GFR (Non-Af Amer) 39 POC Glucose (mg/dL) Random Glucose 205 H Lactic Acid Calcium 8.6 Phosphorus 4.9 H Magnesium 2.8 H Total Bilirubin 0.3 AST 20 ALT 31 Alkaline Phosphatase 36 L Ammonia Troponin I 0.0440 NT-Pro-B Natriuret Pep 400 Total Protein 5.8 L Albumin 3.2 L Globulin 2.6 Albumin/Globulin Ratio 1.2 Triglycerides Cholesterol LDL Cholesterol Direct HDL Cholesterol Lipase 250 Vitamin B12 TSH 3rd Generation 0.32 L Venous Blood Potassium 3.4 L Urine Color Urine Clarity Urine pH Ur Specific [place] Urine Protein Urine Glucose (UA) Urine Ketones Urine Blood Urine Nitrate Urine Bilirubin Urine Urobilinogen Ur Leukocyte Esterase Urine RBC (Auto) Urine Microscopic WBC Ur Squamous Epith Cells Hyaline Casts Alcohol, Quantitative < 10 Blood Type Antibody Screen Crossmatch BBK History Checked 12/16/18 12/16/18 12/16/18 17:51 17:55 17:58 WBC 13.6 H RBC 1.34 L Hgb 4.3 L* Hct 13.7 L MCV 102.7 H MCH 32.1 H MCHC 31.3 L RDW 21.1 H Plt Count 277 MPV 8.8 Neut % (Auto) 83.7 H Lymph % (Auto) 10.9 L [place] % (Auto) 5.2 Eos % (Auto) 0.0 Baso % (Auto) 0.2 Neut # (Auto) 11.4 H Lymph # (Auto) 1.5 [place] # (Auto) 0.7 Eos # (Auto) 0.0 Baso # (Auto) 0.0 PT INR APTT pO2 VBG pH VBG pCO2 VBG HCO3 VBG Total CO2 VBG O2 Sat (Calc) VBG Base Excess VBG Potassium Sodium Chloride Glucose Lactate FiO2 Crit Value Called To Crit Value Called By Crit Value Read Back Blood Gas Notified Time Potassium Carbon Dioxide Anion Gap BUN Creatinine Est GFR ( Amer) Est GFR (Non-Af Amer) POC Glucose (mg/dL) 274 H Random Glucose Lactic Acid Calcium Phosphorus Magnesium Total Bilirubin AST ALT Alkaline Phosphatase Ammonia Troponin I NT-Pro-B Natriuret Pep Total Protein Albumin Globulin Albumin/Globulin Ratio Triglycerides Cholesterol LDL Cholesterol Direct HDL Cholesterol Lipase Vitamin B12 TSH 3rd Generation Venous Blood Potassium Urine Color Urine Clarity Urine pH Ur Specific [place] Urine Protein Urine Glucose (UA) Urine Ketones Urine Blood Urine Nitrate Urine Bilirubin Urine Urobilinogen Ur Leukocyte Esterase Urine RBC (Auto) Urine Microscopic WBC Ur Squamous Epith Cells Hyaline Casts Alcohol, Quantitative Blood Type B POSITIVE Antibody Screen Negative Crossmatch See Detail BBK History Checked Patient has bt 12/16/18 12/16/18 12/16/18 18:21 20:15 21:46 WBC RBC Hgb Hct MCV MCH MCHC RDW Plt Count MPV Neut % (Auto) Lymph % (Auto) [place] % (Auto) Eos % (Auto) Baso % (Auto) Neut # (Auto) Lymph # (Auto) [place] # (Auto) Eos # (Auto) Baso # (Auto) PT INR APTT pO2 VBG pH VBG pCO2 VBG HCO3 VBG Total CO2 VBG O2 Sat (Calc) VBG Base Excess VBG Potassium Sodium Chloride Glucose Lactate FiO2 Crit Value Called To Crit Value Called By Crit Value Read Back Blood Gas Notified Time Potassium Carbon Dioxide Anion Gap BUN Creatinine Est GFR ( Amer) Est GFR (Non-Af Amer) POC Glucose (mg/dL) Random Glucose Lactic Acid 2.8 H Calcium Phosphorus Magnesium Total Bilirubin AST ALT Alkaline Phosphatase Ammonia < 9 L Troponin I NT-Pro-B Natriuret Pep Total Protein Albumin Globulin Albumin/Globulin Ratio Triglycerides Cholesterol LDL Cholesterol Direct HDL Cholesterol Lipase Vitamin B12 TSH 3rd Generation Venous Blood Potassium Urine Color Yellow Urine Clarity Cloudy Urine pH 5.0 Ur Specific [place] 1.019 Urine Protein 30 Urine Glucose (UA) Neg Urine Ketones Negative Urine Blood Small Urine Nitrate Negative Urine Bilirubin Negative Urine Urobilinogen 0.2-1.0 Ur Leukocyte Esterase Trace Urine RBC (Auto) < 1 Urine Microscopic WBC 1 Ur Squamous Epith Cells < 1 Hyaline Casts >20 H Alcohol, Quantitative Blood Type Antibody Screen Crossmatch BBK History Checked 12/17/18 12/17/18 12/17/18 04:35 04:35 04:35 WBC 11.6 H RBC 1.73 L Hgb 5.3 L* Hct 16.2 L MCV 93.6 D MCH 30.6 MCHC 32.7 L RDW 16.9 H Plt Count 163 D MPV 8.8 Neut % (Auto) 72.7 Lymph % (Auto) 17.6 L [place] % (Auto) 9.3 Eos % (Auto) 0.1 Baso % (Auto) 0.3 Neut # (Auto) 8.5 H Lymph # (Auto) 2.0 [place] # (Auto) 1.1 H Eos # (Auto) 0.0 Baso # (Auto) 0.0 PT INR APTT pO2 VBG pH VBG pCO2 VBG HCO3 VBG Total CO2 VBG O2 Sat (Calc) VBG Base Excess VBG Potassium Sodium 144 Chloride 124 H Glucose Lactate FiO2 Crit Value Called To Crit Value Called By Crit Value Read Back Blood Gas Notified Time Potassium 3.5 L Carbon Dioxide 16 L Anion Gap 8 L BUN 72 H Creatinine 1.1 Est GFR ( Amer) > 60 Est GFR (Non-Af Amer) > 60 POC Glucose (mg/dL) Random Glucose 130 H Lactic Acid 0.8 Calcium 6.9 L Phosphorus 2.6 Magnesium 2.2 Total Bilirubin 0.4 AST 22 ALT 29 Alkaline Phosphatase 23 L D Ammonia Troponin I NT-Pro-B Natriuret Pep Total Protein 3.9 L Albumin 1.9 L D Globulin 2.0 L Albumin/Globulin Ratio 1.0 Triglycerides 173 H Cholesterol 83 LDL Cholesterol Direct 44 HDL Cholesterol 23 L Lipase Vitamin B12 185 L TSH 3rd Generation 0.52 Venous Blood Potassium Urine Color Urine Clarity Urine pH Ur Specific [place] Urine Protein Urine Glucose (UA) Urine Ketones Urine Blood Urine Nitrate Urine Bilirubin Urine Urobilinogen Ur Leukocyte Esterase Urine RBC (Auto) Urine Microscopic WBC Ur Squamous Epith Cells Hyaline Casts Alcohol, Quantitative Blood Type Antibody Screen Crossmatch BBK History Checked Assessment & Plan - Assessment and Plan (Free Text) Assessment: 58M with dystrophic elongated and mycotic nails Plan: Patient seen and evaluated Discussed with Dr. Zambrano Nails cut with nail nipper x 10 without incident, patient tolerated well No other podiatric intervention at this time Please reconsult if other acute problems present Thank you for the consult - Date & Time Date: 12/17/18 Time: 11:10
--- NOTE | 2018-12-17 11:50 | CARD ---
APPROVED REPORT Date of service: 12/16/2018 EKG Measurement Heart [id number] <Conclusion> Normal sinus rhythm Increased R/S ratio in V1, consider early transition or posterior infarct Abnormal ECG
[2018-12-17 15:18] LABS: HEMOGLOBIN 6.6 g/dL (12.0-18.0); MEAN CELL VOLUME 92.3 fl (80.0-94.0); MEAN CORPUSCULAR HEMOGLOBIN 30.2 pg (27.0-31.0); MEAN CORPUSCULAR HGB CONC 32.7 g/dL (33.0-37.0); RBC 2.2 Mil/uL (4.40-5.90); RED CELL DISTRIBUTION WIDTH 16.7 % (11.5-14.5); WHITE BLOOD COUNT 10.8 K/uL (4.8-10.8)
[2018-12-17 15:32] LABS: ALB/GLOB RATIO 0.9 (1.0-2.1); ALBUMIN 1.7 g/dL (3.5-5.0); ALT/SGPT 28 U/L (21-72); AST/SGOT 21 U/L (17-59); BLOOD UREA NITROGEN 55 mg/dl (9-20); GFR NON-AFRICAN AMERICAN > 60
[2018-12-17] MEDS ORDERED: Iohexol 240 (50 ml) PO ONE ×2 (16:29→18:15)
[2018-12-17] MEDS ORDERED: Iohexol 240 (10 ml) PO ONE (16:37)
[2018-12-17] MEDS ORDERED: Pantoprazole 40 mg EC Tab PO SCH (17:00)
[2018-12-17 17:33] LABS: FOLATE 4.6 ng/mL
[2018-12-17] MEDS: Potassium CL 10mEq/100ml 100 ML IVPB SCH ×3 (18:09→20:05)
--- NOTE | 2018-12-17 20:05 | CARD ---
APPROVED REPORT Date of service: 12/17/2018 EKG Measurement Heart [id number] <Conclusion> Normal sinus rhythm Normal ECG
[2018-12-17 20:17] LABS: HEMOGLOBIN 7.2 g/dL (12.0-18.0); MEAN CELL VOLUME 90.6 fl (80.0-94.0); MEAN CORPUSCULAR HEMOGLOBIN 29.4 pg (27.0-31.0); MEAN CORPUSCULAR HGB CONC 32.5 g/dL (33.0-37.0); RBC 2.45 Mil/uL (4.40-5.90); RED CELL DISTRIBUTION WIDTH 15.8 % (11.5-14.5); WHITE BLOOD COUNT 11.3 K/uL (4.8-10.8)
[2018-12-17] MEDS ORDERED: Sterile Water 20 ML IV ONE (20:22)
[2018-12-18] MEDS ORDERED: Sodium Chloride 0.9% 50 ML IV ONE (00:53)
[2018-12-18] MEDS ORDERED: Iodixanol 320 MG/ML 100 ML BOTTLE IV ONE (00:53)
[2018-12-18] MEDS ORDERED: Sodium Chloride 0.9% 500 ML IV ONE (01:27)
--- NOTE | 2018-12-18 02:05 | CON ---
DATE: 12/17/2018 REFERRING PHYSICIAN: Eleno Bowers MD REASON FOR CONSULTATION: Anemia. HISTORY OF PRESENT ILLNESS: This is a 58-year-old male with history of anemia, anxiety and depression who comes in for weakness and generalized malaise. The patient cannot give a history because of aphasia or confusion. The history was obtained via chart and staff. The family was present at the bedside. GI was called for anemia. The patient is currently lying in bed, confused and in no apparent distress. PAST MEDICAL HISTORY: As above. PAST SURGICAL HISTORY: As above. MEDICATIONS: Have been reviewed. REVIEW OF SYSTEMS: All other systems have been obtained. PHYSICAL EXAMINATION: VITAL SIGNS: Here in the hospital are grossly unremarkable. GENERAL: A disheveled elderly male, lying in bed comfortable, in no apparent distress. HEENT: Head: Normocephalic and atraumatic. Eyes: Pupils are equal and reactive to light bilaterally. No conjunctival pallor or icterus. NECK: Supple. Normal range of motion. No lymph nodes appreciated. LUNGS: Coarse breath sounds bilaterally. HEART: S1 and S2. Regular rate and rhythm. No murmurs appreciated. ABDOMEN: Soft, nontender. Bowel sounds present. No rebound. No guarding. RECTAL: Deferred. EXTREMITIES: Pulse felt bilaterally. SKIN: Warm, dry and intact. NEUROLOGICAL: Alert and oriented x2. LABORATORY DATA: Labs and radiology have been reviewed. WBC was 13.6, now it is 10.8; hemoglobin was 4.3 and now it is 6.6; platelet count is 277. INR is 1.2. Lactate was 4.1, now it is 0.8. ASSESSMENT AND PLAN: This is a 58-year-old man with anemia. From a gastrointestinal standpoint, I suspect this is something chronic. I would get a CT of the chest, abdomen and pelvis once stable. Transfuse as needed. Protonix twice a day orally. Advance diet as tolerated. We will make a plan depending on the CAT scan findings. Thank you for the consult. Roberto Bullard MD/ PhD cc: Eleno Bowers MD
--- NOTE | 2018-12-18 02:37 | CP.PCM.HP ---
History of Present Illness - History of Present Illness History of Present Illness: CC: Weakness and Altered mental status. HPI: 58 y/o male with a PMH of Schizophrenia, depression, and anemia presented to the ED for severe weakness and altered mental status. As per the pt, he was previously obese and has been on a new diet that requires him not to eat for prolonged periods. For the past week, the pt has only been able to drink water, however no intake of food was reported by the pt. Initial workup revealed low hemoglobin levels, and the pt is currently receiving PRBC's. GI was added on consult, given the pt's significant history of duodenal ulcer, requiring embolization. PMH: Anemia, Anxiety, Depression, HTN, Schizophrenia. PSH: Embolization of duodenal ulcer. Allergies: NKDA. Review of Systems: Reviewed and no additional remarkable complaints except fatigue. Objective Appears: Weak. Calm, Non-toxic, No Acute Distress. Head Exam: NORMAL INSPECTION, normocephalic. Eye Exam: Normal eye inspection, EOMI, PERRLA. Respiratory Exam: NORMAL BREATHING PATTERN, breath sounds diminished. Cardiovascular Exam: +S1, +S2. RRR. GI & Abdominal Exam: Soft, non-tender, non-distended. Neurological Exam: Pt able to follow basic commands, answers in short, mouthed words. Psychiatric exam: Normal mood. Calm and cooperative. Skin exam: Pale, warm and dry. Long, overgrown toe nails. Assessment/Impression/Plan: 1.) Anemia/Potential GI bleed -PRBC transfusions ongoing; serial CBCs ordered. -GI consulted to identify potential source of the bleed; pt has a history of Duodenal ulcer with embolization done in the past. -Protonix drip maintained, consider placing pt NPO. -Pt on vasopressors (Levophed) for hypotension secondary to acute blood loss/hypovolemic state. -Lactated Ringers IVF volume replacement; monitor I&Os. -Replenish electrolytes accordingly. 2.) Schizophrenia -Psych consult added, assess mental status and need to restart psych meds. Present on Admission - Present on Admission Any Indicators Present on Admission: No Past Patient History - Infectious Disease Hx of Infectious Diseases: None - Past Medical History & Family History Past Medical History?: Yes - Past Social History Alcohol: None Drugs: Denies - CARDIAC Hx Hypertension: Yes - PULMONARY Hx Respiratory Disorders: No - NEUROLOGICAL Hx Neurological Disorder: No - HEENT Hx HEENT Problems: No - RENAL Hx Chronic Kidney Disease: No - ENDOCRINE/METABOLIC Hx Endocrine Disorders: No - HEMATOLOGICAL/ONCOLOGICAL Hx Anemia: Yes - INTEGUMENTARY Hx Dermatological Problems: No - MUSCULOSKELETAL/RHEUMATOLOGICAL Hx Musculoskeletal Disorders: No Hx Falls: Yes - GASTROINTESTINAL Hx Vomiting: Yes (vomitting blood x 1 day) - GENITOURINARY/GYNECOLOGICAL Hx Genitourinary Disorders: No - PSYCHIATRIC Hx Anxiety: Yes Hx Depression: Yes Hx Schizophrenia: Yes - SURGICAL HISTORY Hx Surgeries: No Other/Comment: Rt. 3rd finger surgery - ANESTHESIA Hx Anesthesia: No Hx Anesthesia Reactions: No Hx Malignant Hyperthermia: No Meds Allergies/Adverse Reactions: Allergies Allergy/AdvReac Type Severity Reaction Status Date / Time No Known Allergies Allergy Verified 04/06/15 12:04 Results - Vital Signs Recent Vital Signs: Last Vital Signs Temp 98.2 F 12/18/18 00:00 Pulse 73 12/18/18 02:00 Resp 19 12/18/18 02:00 BP 104/54 L 12/18/18 02:00 Pulse Ox 97 12/18/18 02:00 - Labs Result Diagrams: 12/17/18 19:30 12/17/18 15:00 Labs: Laboratory Results - last 24 hr 12/16/18 12/17/18 12/17/18 17:51 04:35 04:35 WBC 11.6 H RBC 1.73 L Hgb 5.3 L* Hct 16.2 L MCV 93.6 D MCH 30.6 MCHC 32.7 L RDW 16.9 H Plt Count 163 D MPV 8.8 Neut % (Auto) 72.7 Lymph % (Auto) 17.6 L [place] % (Auto) 9.3 Eos % (Auto) 0.1 Baso % (Auto) 0.3 Neut # (Auto) 8.5 H Lymph # (Auto) 2.0 [place] # (Auto) 1.1 H Eos # (Auto) 0.0 Baso # (Auto) 0.0 Sodium 144 Potassium 3.5 L Chloride 124 H Carbon Dioxide 16 L Anion Gap 8 L BUN 72 H Creatinine 1.1 Est GFR ( Amer) > 60 Est GFR (Non-Af Amer) > 60 Random Glucose 130 H Lactic Acid Calcium 6.9 L Phosphorus 2.6 Magnesium 2.2 Total Bilirubin 0.4 AST 22 ALT 29 Alkaline Phosphatase 23 L D Total Protein 3.9 L Albumin 1.9 L D Globulin 2.0 L Albumin/Globulin Ratio 1.0 Triglycerides 173 H Cholesterol 83 LDL Cholesterol Direct 44 HDL Cholesterol 23 L Vitamin B12 185 L Folate 4.6 TSH 3rd Generation 0.52 Cortisol AM Sample Blood Type B POSITIVE Antibody Screen Negative Crossmatch See Detail BBK History Checked Patient has bt 12/17/18 12/17/18 12/17/18 04:35 04:35 15:00 WBC 10.8 RBC 2.20 L Hgb 6.6 L Hct 20.3 L MCV 92.3 MCH 30.2 MCHC 32.7 L RDW 16.7 H Plt Count 142 MPV Neut % (Auto) Lymph % (Auto) [place] % (Auto) Eos % (Auto) Baso % (Auto) Neut # (Auto) Lymph # (Auto) [place] # (Auto) Eos # (Auto) Baso # (Auto) Sodium Potassium Chloride Carbon Dioxide Anion Gap BUN Creatinine Est GFR ( Amer) Est GFR (Non-Af Amer) Random Glucose Lactic Acid 0.8 Calcium Phosphorus Magnesium Total Bilirubin AST ALT Alkaline Phosphatase Total Protein Albumin Globulin Albumin/Globulin Ratio Triglycerides Cholesterol LDL Cholesterol Direct HDL Cholesterol Vitamin B12 Folate TSH 3rd Generation Cortisol AM Sample 25.1 H Blood Type Antibody Screen Crossmatch BBK History Checked 12/17/18 12/17/18 15:00 19:30 WBC 11.3 H RBC 2.45 L Hgb 7.2 L Hct 22.2 L MCV 90.6 MCH 29.4 MCHC 32.5 L RDW 15.8 H Plt Count 145 MPV Neut % (Auto) Lymph % (Auto) [place] % (Auto) Eos % (Auto) Baso % (Auto) Neut # (Auto) Lymph # (Auto) [place] # (Auto) Eos # (Auto) Baso # (Auto) Sodium 143 Potassium 3.3 L Chloride 121 H Carbon Dioxide 16 L Anion Gap 9 L BUN 55 H Creatinine 0.9 Est GFR ( Amer) > 60 Est GFR (Non-Af Amer) > 60 Random Glucose 161 H Lactic Acid Calcium 7.0 L Phosphorus 2.1 L Magnesium 2.0 Total Bilirubin 0.2 AST 21 ALT 28 Alkaline Phosphatase 25 L Total Protein 3.5 L Albumin 1.7 L Globulin 1.8 L Albumin/Globulin Ratio 0.9 L Triglycerides Cholesterol LDL Cholesterol Direct HDL Cholesterol Vitamin B12 Folate TSH 3rd Generation Cortisol AM Sample Blood Type Antibody Screen Crossmatch BBK History Checked Assessment & Plan (1) Schizophrenia Status: Acute (2) Severe anemia Status: Acute (3) Anemia Status: Acute (4) History of peptic ulcer disease Status: Acute
[2018-12-18] MEDS: Pantoprazole 40 MG in Sodium Chloride 0.9% 100 ML IVPB SCH ×4 (05:34→20:24)
[2018-12-18 06:33] LABS: HEMOGLOBIN 6.7 g/dL (12.0-18.0); MEAN CORPUSCULAR HEMOGLOBIN 29.4 pg (27.0-31.0); MEAN CORPUSCULAR HGB CONC 32.7 g/dL (33.0-37.0); RBC 2.29 Mil/uL (4.40-5.90); RED CELL DISTRIBUTION WIDTH 16.6 % (11.5-14.5); WHITE BLOOD COUNT 11.8 K/uL (4.8-10.8)
[2018-12-18 07:00] LABS: ALB/GLOB RATIO 0.9 (1.0-2.1); ALBUMIN 1.9 g/dL (3.5-5.0); ALT/SGPT 35 U/L (21-72); AST/SGOT 31 U/L (17-59); BLOOD UREA NITROGEN 32 mg/dl (9-20); CALCIUM 7.6 mg/dL (8.4-10.2); GFR NON-AFRICAN AMERICAN > 60
[2018-12-18] MEDS: Insulin Regular 100 units/ml SC SCH ×4 (07:00→22:20)
[2018-12-18] MEDS: Lactated Ringer's 1,000 ML IV SCH (12:57)
[2018-12-18 14:26] LABS: HEMOGLOBIN 7.3 g/dL (12.0-18.0); MEAN CELL VOLUME 89.1 fl (80.0-94.0); MEAN CORPUSCULAR HEMOGLOBIN 29.8 pg (27.0-31.0); MEAN CORPUSCULAR HGB CONC 33.4 g/dL (33.0-37.0); RBC 2.46 Mil/uL (4.40-5.90); RED CELL DISTRIBUTION WIDTH 15.9 % (11.5-14.5); WHITE BLOOD COUNT 9.2 K/uL (4.8-10.8)
[2018-12-18 14:35] LABS: IRON 25 ug/dL (49-181)
[2018-12-18] MEDS ORDERED: Chlorhexidine Gluconate 1 APPL/PKT TP ONE (14:38)
--- NOTE | 2018-12-18 14:41 | PN ---
DATE: 12/18/2018 LOCATION: The patient in ICU bed 432. TIME SPENT: 35 minutes. The patient is seen and evaluated at the bedside. Past medical, surgical, family, social history reviewed. SUBJECTIVE: A 58-year-old male with history significant for schizophrenia, depression, chronic anemia, admitted through ED on 12/16/2018 complaining of severe weakness and change in mental status, noted to have significant drop in hemoglobin, status post transfusion 4 units of packed red blood cells with improvement in hemoglobin. Overnight, normotensive, afebrile, telemetry sinus rhythm. This morning, alert, awake, affect flat. Denies chest pain, palpitation. No abdominal discomfort. No diarrhea, no dysuria, no melena. PHYSICAL EXAMINATION: VITAL SIGNS: Temperature 98.4, heart rate 85 regular, blood pressure 104/65, respiratory rate 19, thoracoabdominal, saturation 99% on room air. Intake 997, output 2755, positive balance 6342, significant difference in the weight, to be verified. HEAD, EYES, EARS, NOSE AND THROAT: Pupils are reactive. Conjunctivae pale, sclerae white. NECK: Supple. Trachea central. CHEST: Bilateral breath sounds clear to auscultation. HEART: Rhythm regular. S1, S2 normal intensity. No S3, S4 gallop. No audible murmur. ABDOMEN: Bowel sounds present. Soft. Liver and spleen not palpable. Bladder not distended. EXTREMITIES: No clubbing, cyanosis, edema. NEUROLOGIC: Alert, awake, slow to respond. No cranial nerve deficit. Sensory impairment cannot be tested due to lack of cooperation. Deep tendon reflexes are 2+, plantar flexor. CURRENT MEDICATIONS: Accu-Chek with regular insulin coverage, Ringer's lactate 1000 mL at 100 mL per hour, norepinephrine at 2.5 mcg per minute maintaining systolic pressure over 100, Protonix 40 daily, Zosyn 2.25 g IV every 8 hours. LABORATORY DATA: WBC 11.8, hemoglobin 6.7, hematocrit 20.6, MCV 90, MCH 29.4, MCHC 32.7, platelet count 126. PT 13.1, INR 1.2, PTT 19.6. ABG: pH 7.3, pCO2 of 32, bicarb 15.7, oxygen saturation 44.4, lactate 4.1. SMA-7: Sodium 141, potassium 3.6, chloride 117, CO2 of 18, blood urea nitrogen 32, creatinine 0.8, random glucose 103, calcium 7.6, albumin 1.9, corrected calcium level is normal. AST 31, ALT 35, alkaline phosphatase 26. Triglycerides 173, cholesterol 83, LDL 44, HDL 23, vitamin B12 of 185, folate 4.6. TSH 0.52, cortisol 25.1. Microbiology: Urine culture no growth. Blood culture no growth reported. CAT scan of the chest and abdomen report pending. Head CT negative. Chest x-ray, no active disease noted. IMPRESSION: 1. Neurologic: Alert, awake, follows commands appropriate. No cranial nerve deficit. History of schizophrenia/depression and anxiety. 2. Cardiac: [id number] systolic pressure, on Levophed, likely hypovolemic, hypotension. No clear evidence of infarction. 3. Pulmonary: Chest x-ray is normal. CT chest report pending. 4. Hematology: Anemia, likely chronic, status post transfusion of packed red blood cells, still with low hemoglobin, transfused to hematocrit close to 10. We will do the iron study, start on infusion, followed by Procrit, folic acid and vitamin B12. 5. Gastrointestinal: No acute issues noted. Appreciate Gastroenterology input. 6. Psychiatric: History of major depression/schizophrenia. We will obtain psychiatric evaluation once the patient's hemoglobin and hemodynamically stable. Hold deep venous thrombosis prophylaxis with heparin due to low platelet count and low hemoglobin. Declan Almonte MD
[2018-12-18 14:44] LABS: % IRON SATURATION 11 % (20-55); TOTAL IRON BINDING CAPACITY 227 ug/dL (250-450)
[2018-12-18 15:12] LABS: FERRITIN 30.9 ng/Ml (17.9-464)
--- NOTE | 2018-12-18 15:31 | CP.PCM.CON ---
History of Present Illness - History of Present Illness History of Present Illness: This is a 58 yr old male with h/o depression and schizophrenia prescribed zyprexa 20 mg daily and klonopin and medical h/o dehydration and anemia as pt has been admitted for change of mental status because of not eating and treated for dehydration and severe anemia and psych consult called to evaluate if he can be restarted his psych meds .pt is not presenting with any overt psychotic symptoms but feels very tired and weak and has not been on psych meds since admission and as pt is currently NPO for medical reason and cant be prescribed pschotropic meds.pt remains somnolent and with cognitive impairment because of the medical issues.no agitation noted. Past Patient History - Infectious Disease Hx of Infectious Diseases: None - Past Medical History & Family History Past Medical History?: Yes - Past Social History Alcohol: None Drugs: Denies - CARDIAC Hx Hypertension: Yes - PULMONARY Hx Respiratory Disorders: No - NEUROLOGICAL Hx Neurological Disorder: No - HEENT Hx HEENT Problems: No - RENAL Hx Chronic Kidney Disease: No - ENDOCRINE/METABOLIC Hx Endocrine Disorders: No - HEMATOLOGICAL/ONCOLOGICAL Hx Anemia: Yes - INTEGUMENTARY Hx Dermatological Problems: No - MUSCULOSKELETAL/RHEUMATOLOGICAL Hx Musculoskeletal Disorders: No Hx Falls: Yes - GASTROINTESTINAL Hx Vomiting: Yes (vomitting blood x 1 day) - GENITOURINARY/GYNECOLOGICAL Hx Genitourinary Disorders: No - PSYCHIATRIC Hx Anxiety: Yes Hx Depression: Yes Hx Schizophrenia: Yes - SURGICAL HISTORY Hx Surgeries: No Other/Comment: Rt. 3rd finger surgery - ANESTHESIA Hx Anesthesia: No Hx Anesthesia Reactions: No Hx Malignant Hyperthermia: No Meds Allergies/Adverse Reactions: Allergies Allergy/AdvReac Type Severity Reaction Status Date / Time No Known Allergies Allergy Verified 04/06/15 12:04 - Medications Medications: Current Medications Piperacillin Sod/Tazobactam (Sod 2.25 gm/ Sodium Chloride) 100 mls @ 100 mls/hr IVPB Q8 MATT; Protocol Last Admin: 12/18/18 09:07 Dose: 100 mls/hr Lactated Ringer's (Lactated Ringer's) 1,000 mls @ 100 mls/hr IV .Q10H MATT Last Admin: 12/18/18 12:57 Dose: 100 mls/hr Pantoprazole Sodium 40 mg/ (Sodium Chloride) 100 mls @ 50 mls/hr IVPB Q5H MATT Last Admin: 12/18/18 12:58 Dose: 50 mls/hr Norepinephrine Bitartrate 16 (mg/ Dextrose) 266 mls @ 2.49 mls/hr IV .Q24H ONE; Protocol Stop: 12/19/18 07:46 Insulin Human Regular (Humulin R) 0 units SC ACCU-CHECK MATT; Protocol Last Admin: 12/18/18 11:49 Dose: Not Given Physical Exam - Psychiatric Exam Psychiatric exam: Anxious, Normal Affect, Normal Mood Additional comments: pt is alert,orientedx2 and disoriented for date with dulling of cognition due to severe anemia and weakness .pt denies any auditory hallucinations.pt denies suicidal ideation.no overt delusions.pt has limited insight and judgement and st ill unclear as to why he was not eating and following a special diet and may have been obsessed with body image . Results - Vital Signs Recent Vital Signs: Last Vital Signs Temp 98.5 F 12/18/18 12:35 Pulse 78 12/18/18 15:00 Resp 21 12/18/18 15:00 BP 111/61 12/18/18 15:00 Pulse Ox 100 12/18/18 15:00 - Labs Result Diagrams: 12/23/18 04:56 12/23/18 04:56 Labs: Laboratory Results - last 24 hr 12/16/18 12/17/18 12/17/18 17:51 04:35 04:35 WBC RBC Hgb Hct MCV MCH MCHC RDW Plt Count Sodium Potassium Chloride Carbon Dioxide Anion Gap BUN Creatinine Est GFR ( Amer) Est GFR (Non-Af Amer) Random Glucose Hemoglobin A1c Calcium Phosphorus Magnesium Iron TIBC % Saturation Ferritin Total Bilirubin AST ALT Alkaline Phosphatase Lactate Dehydrogenase Total Creatine Kinase Total Protein Albumin Globulin Albumin/Globulin Ratio Folate 4.6 Cortisol AM Sample 25.1 H Blood Type B POSITIVE Antibody Screen Negative Crossmatch See Detail BBK History Checked Patient has bt 12/17/18 12/17/18 12/17/18 04:35 15:00 19:30 WBC 11.3 H RBC 2.45 L Hgb 7.2 L Hct 22.2 L MCV 90.6 MCH 29.4 MCHC 32.5 L RDW 15.8 H Plt Count 145 Sodium 143 Potassium 3.3 L Chloride 121 H Carbon Dioxide 16 L Anion Gap 9 L BUN 55 H Creatinine 0.9 Est GFR ( Amer) > 60 Est GFR (Non-Af Amer) > 60 Random Glucose 161 H Hemoglobin A1c 5.3 Calcium 7.0 L Phosphorus 2.1 L Magnesium 2.0 Iron TIBC % Saturation Ferritin Total Bilirubin 0.2 AST 21 ALT 28 Alkaline Phosphatase 25 L Lactate Dehydrogenase Total Creatine Kinase Total Protein 3.5 L Albumin 1.7 L Globulin 1.8 L Albumin/Globulin Ratio 0.9 L Folate Cortisol AM Sample Blood Type Antibody Screen Crossmatch BBK History Checked 12/18/18 12/18/18 12/18/18 04:30 04:30 14:20 WBC 11.8 H RBC 2.29 L Hgb 6.7 L Hct 20.6 L MCV 90.0 MCH 29.4 MCHC 32.7 L RDW 16.6 H Plt Count 126 L Sodium 141 Potassium 3.6 Chloride 117 H Carbon Dioxide 18 L Anion Gap 10 BUN 32 H Creatinine 0.8 Est GFR ( Amer) > 60 Est GFR (Non-Af Amer) > 60 Random Glucose 103 Hemoglobin A1c Calcium 7.6 L Phosphorus Magnesium Iron 25 L TIBC 227 L % Saturation 11 L Ferritin Total Bilirubin 0.4 AST 31 ALT 35 Alkaline Phosphatase 26 L Lactate Dehydrogenase Total Creatine Kinase 541 H Total Protein 3.9 L Albumin 1.9 L Globulin 2.0 L Albumin/Globulin Ratio 0.9 L Folate Cortisol AM Sample Blood Type Antibody Screen Crossmatch BBK History Checked 12/18/18 12/18/18 14:20 14:20 WBC 9.2 RBC 2.46 L Hgb 7.3 L Hct 22.0 L MCV 89.1 MCH 29.8 MCHC 33.4 RDW 15.9 H Plt Count 119 L Sodium Potassium Chloride Carbon Dioxide Anion Gap BUN Creatinine Est GFR ( Amer) Est GFR (Non-Af Amer) Random Glucose Hemoglobin A1c Calcium Phosphorus Magnesium Iron TIBC % Saturation Ferritin 30.9 Total Bilirubin AST ALT Alkaline Phosphatase Lactate Dehydrogenase 416 Total Creatine Kinase Total Protein Albumin Globulin Albumin/Globulin Ratio Folate Cortisol AM Sample Blood Type Antibody Screen Crossmatch BBK History Checked Assessment & Plan - Assessment and Plan (Free Text) Assessment: Schizophrenia 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 Plan: plan : medical stabilization of patient correcting anemia and treatment of sepsis with I/V antibiotics . will start pt on prn haldol I /m and Ativan I /V as pt is NPO and once pt is medically stabilized ,psych reconsult is requested to evaluate for restarting pt on zyprexa . Please alert psychiatry if any psychotic agitation or worsening of depression.
[2018-12-18 17:24] LABS: FIBRINOGEN 188 mg/dl (200-400); INR 1.1; PROTHROMBIN TIME 12.6 Seconds (9.8-13.1)
[2018-12-18 17:26] LABS: D DIMER 477 ng/mlDDU (0-230)
--- NOTE | 2018-12-18 17:38 | CT ---
Date of service: 12/18/2018 PROCEDURE: CT Chest with contrast HISTORY: Sepsis, anemia COMPARISON: None available. TECHNIQUE: Contiguous axial images were obtained through the chest with intravenous contrast enhancement. Sagittal and coronal reconstructions were performed. IV contrast: Radiation dose: Total exam DLP = 715.78 mGy-cm. This CT exam was performed using one or more of the following dose reduction techniques: Automated exposure control, adjustment of the mA and/or kV according to patient size, and/or use of iterative reconstruction technique. FINDINGS: Examination is limited due to streak and beam hardening artifact arising from the upper extremities which have not been moved from the field of view LUNGS: Mild bibasilar atelectasis. MEDIASTINUM: Heart size within range of normal. No significant pericardial effusion. No evidence of aortic aneurysm or dissection. Minimal aortic atherosclerotic calcification or mural plaque present. Trachea midline and patent with no large central endoluminal lesions. No significant mediastinal or hilar adenopathy. PLEURA: No significant pleural effusion. No pneumothorax. BONES: Minor multilevel degenerative spondylosis of the thoracic spine UPPER ABDOMEN: Apparent cholecystectomy with small amount of central pneumobilia. OTHER FINDINGS: None. IMPRESSION: Limited study due to streak and beam hardening artifact as above mild bibasilar atelectasis. Apparent cholecystectomy with small amount of central pneumobilia.
--- NOTE | 2018-12-18 18:09 | CT ---
Date of service: 12/18/2018 PROCEDURE: CT abdomen and pelvis HISTORY: Anemia. History of ulcers COMPARISON: No prior study available for comparison concurrent CT scan of the chest. TECHNIQUE: Contiguous helical/transaxial sections of the abdomen pelvis performed in standard fashion following oral and intravenous contrast material. Additional 2D sagittal and coronal reformats generated. Radiation dose: Total exam DLP = 715.78 mGy-cm. This CT exam was performed using one or more of the following dose reduction techniques: Automated exposure control, adjustment of the mA and/or kV according to patient size, and/or use of iterative reconstruction technique. FINDINGS: Note the examination is limited due to motion artifact. The study is further limited due to a relative paucity of retroperitoneal and intraperitoneal fat. LOWER THORAX: Minor bibasilar atelectasis. Liver exhibits normal size. LIVER: There mild central pneumobilia. GALLBLADDER AND BILE DUCTS: Apparent cholecystectomy PANCREAS: Pancreas is poorly seen in part due to motion artifact as well as. SPLEEN: The spleen unremarkable. ADRENALS: No adrenal lesions. KIDNEYS AND URETERS: Kidneys demonstrate relatively symmetric nephrograms. No evidence of nephrolithiasis or hydronephrosis. VASCULATURE: Unremarkable. No aortic aneurysm. Mild aortic atherosclerotic calcification or mural plaque present. In situ right iliac central line. Small bubble of air is present within the right iliac vein. BOWEL: The stomach appears partially distended with oral contrast material and air. Visualized loops of small bowel exhibit normal contour and caliber. No evidence of acute mechanical small bowel obstruction with oral contrast material seen extending into the colon to the level of the splenic flexure with apparent dilute contrast material seen throughout the remaining colon. There is a large air-fluid level seen within the rectum. There is significant distention of the cecum measuring nearly 11 cm in greatest transverse dimension. APPENDIX: Appendix is not seen with certainty on this study PERITONEUM: Unremarkable. No free fluid. No free air. There appears to be mild diffuse anasarca LYMPH NODES: Unremarkable. No enlarged lymph nodes. BLADDER: In situ unclamped Neff catheter. Urinary bladder is collapsed and therefore that cannot be adequately evaluated. REPRODUCTIVE: Unremarkable. BONES: Mild multilevel degenerative spondylosis most notably affecting the L4-L5 and L5-S1 levels. OTHER FINDINGS: None. IMPRESSION: Apparent cholecystectomy with a small amount of central pneumobilia. Marked distention of the cecum measuring nearly 11 cm in greatest dimension The rectum is distended with a large air-fluid (contrast) level In situ Neff catheter around which the bladder is collapsed and therefore cannot be adequately evaluated. Correlation with urinalysis recommended
[2018-12-18 19:20] LABS: FDP INTERPRETATION POSITIVE (NEGATIVE); FDP QUANTITY >10<40 ug/mL (<10)
[2018-12-18 21:59] LABS: MEAN CELL VOLUME 90.6 fl (80.0-94.0); MEAN CORPUSCULAR HEMOGLOBIN 30.1 pg (27.0-31.0); MEAN CORPUSCULAR HGB CONC 33.3 g/dL (33.0-37.0); RBC 2.01 Mil/uL (4.40-5.90); RED CELL DISTRIBUTION WIDTH 15.8 % (11.5-14.5); WHITE BLOOD COUNT 7.8 K/uL (4.8-10.8)
[2018-12-19] MEDS: Lactated Ringer's 1,000 ML IV SCH ×3 (00:41→22:02)
[2018-12-19] MEDS: Pantoprazole 40 MG in Sodium Chloride 0.9% 100 ML IVPB SCH ×5 (01:46→22:02)
[2018-12-19] MEDS: Insulin Regular 100 units/ml SC SCH ×4 (06:31→22:05)
[2018-12-19 06:32] LABS: MEAN CELL VOLUME 88.7 fl (80.0-94.0); MEAN CORPUSCULAR HEMOGLOBIN 29.8 pg (27.0-31.0); MEAN CORPUSCULAR HGB CONC 33.6 g/dL (33.0-37.0); RBC 2.67 Mil/uL (4.40-5.90); RED CELL DISTRIBUTION WIDTH 14.2 % (11.5-14.5); WHITE BLOOD COUNT 6.2 K/uL (4.8-10.8)
[2018-12-19 06:41] LABS: ALB/GLOB RATIO 0.9 (1.0-2.1); ALBUMIN 1.7 g/dL (3.5-5.0); ALT/SGPT 33 U/L (21-72); AST/SGOT 19 U/L (17-59); BLOOD UREA NITROGEN 20 mg/dl (9-20); CALCIUM 7.4 mg/dL (8.4-10.2); GFR NON-AFRICAN AMERICAN > 60
--- NOTE | 2018-12-19 14:24 | RAD ---
Date of service: 12/19/2018 HISTORY: dilated cecum COMPARISON: CT 12/18/2018 TECHNIQUE: 1 view obtained. FINDINGS: BOWEL: Normal. No obstruction. No free air. There is a decrease in the large and small bowel dilatation seen on the CT. The cecum does not appear to be distended BONES: Normal. OTHER FINDINGS: None. IMPRESSION: There is a decrease in the large and small bowel dilatation seen on the CT. The cecum does not appear to be distended
--- NOTE | 2018-12-19 17:42 | CP.PCM.PN ---
Subjective - Date & Time of Evaluation Date of Evaluation: 12/19/18 Time of Evaluation: 10:00 - Subjective Subjective: patient seen and examined at bedside. Interim events noted No complaints offered at this time denies cp/sob/fever/chills. available diagnostic data reviewed Review of Systems All systems: reviewed and no additional remarkable complaints except mentioned above Objective Vital Signs Stable - Constitutional Appears: Non-toxic, No Acute Distress, Chronically Ill Head Exam: NORMAL INSPECTION Eye Exam: Normal appearance Respiratory Exam: NORMAL BREATHING PATTERN Cardiovascular Exam: +S1, +S2 GI & Abdominal Exam: Soft Neurological Exam: Alert, Awake Psychiatric exam: Normal Affect, Normal Mood Skin Exam: Normal Color, Warm Assessment and Plan monitor vitals monitor labs Cont meds Cont tx consultants appreciated input GI following, discussed monitor H&H ICU management rest of plan as ordered Objective - Vital Signs/Intake and Output Vital Signs (last 24 hours): Temp Pulse Resp BP Pulse Ox 97.4 F L 89 18 100/65 99 12/19/18 16:00 12/19/18 16:00 12/19/18 16:00 12/19/18 16:00 12/19/18 16:00 Intake and Output: 12/19/18 12/19/18 06:59 18:59 Intake Total 2140 480 Output Total 780 Balance 1360 480 - Medications Medications: Current Medications Haloperidol Lactate (Haldol) 2 mg IM Q6 PRN PRN Reason: Agitation Last Admin: 12/19/18 13:11 Dose: 2 mg Piperacillin Sod/Tazobactam (Sod 2.25 gm/ Sodium Chloride) 100 mls @ 100 mls/hr IVPB Q8 MATT; Protocol Last Admin: 12/19/18 17:21 Dose: 100 mls/hr Lactated Ringer's (Lactated Ringer's) 1,000 mls @ 100 mls/hr IV .Q10H MATT Last Admin: 12/19/18 11:18 Dose: 100 mls/hr Pantoprazole Sodium 40 mg/ (Sodium Chloride) 100 mls @ 50 mls/hr IVPB Q5H MATT Last Admin: 12/19/18 17:22 Dose: 50 mls/hr Insulin Human Regular (Humulin R) 0 units SC ACCU-CHECK MATT; Protocol Last Admin: 12/19/18 17:16 Dose: Not Given Lorazepam (Ativan) 0.5 mg IVP Q6 PRN PRN Reason: Agitation Last Admin: 12/19/18 10:33 Dose: 0.5 mg - Labs Labs: 12/19/18 06:20 12/19/18 06:20 PT 12.6 Seconds (9.8-13.1) 12/18/18 16:45 INR 1.1 12/18/18 16:45 APTT 19.2 Seconds (25.6-37.1) L 12/16/18 17:51 Assessment and Plan (1) Anemia Status: Acute
--- NOTE | 2018-12-19 19:23 | PN ---
DATE: 12/19/2018 CRITICAL CARE PROGRESS NOTE LOCATION: The patient in ICU, bed 434. TIME SPENT: 35 minutes. The patient is seen and evaluated at the bedside. Case was discussed in multidisciplinary ICU rounds this morning. Past medical, surgical, family and social history reviewed. SUBJECTIVE: A 58-year-old male with history significant for schizophrenia, depression, and chronic anemia, admitted through ED on 12/16/2018 complaining of severe weakness and change in the mental status. Noted to have significant drop in hemoglobin, status post transfusion of 8 units packed red blood cells. Overnight 2 to 3 large melanotic stool. Flexi-Seal in place, noted to have melena around the Flexi-Seal. PHYSICAL EXAMINATION: GENERAL: This morning, alert and awake. Follows commands appropriate. No agitation noted. Seen by Psychiatry consult. Recommended Ativan and Haldol as needed. VITAL SIGNS: Temperature 98.8; heart rate of 93-121; blood pressure 118/71 off Levophed; respiratory rate of 24; saturation 99%. Intake 4062, output 1645, positive balance 2417. HEAD, EYES, EARS, NOSE AND THROAT: Pupils are reactive. Conjunctivae pale. Sclerae white. NECK: Supple. Trachea central. CHEST: Bilateral breath sounds, clear to auscultation. HEART: Rhythm regular. S1, S2 normal intensity. No S3, S4 gallop. No audible murmur. ABDOMEN: Bowel sounds are present. Soft. Liver and spleen not palpable. Bladder not distended. EXTREMITIES: No clubbing, cyanosis or edema. NEUROLOGIC: Alert and awake, slow to respond. No cranial nerve deficits. No motor deficit. Deep tendon reflex 2+ bilaterally, plantar flexor. CURRENT MEDICATIONS: Include haloperidol 2 mg IV every 6 hours p.r.n. for agitation, Accu-Chek with regular insulin coverage, Ringer's lactate at 100 mL/hour, Ativan 0.5 mg IV every 6 hours p.r.n., Protonix 40 mg in 100 mL at 50 mL per hour, Zosyn 2.25 g IV every 8 hours. LABORATORY DATA: WBC 6.2, hemoglobin 8, hematocrit 23.7, and platelet count 87. PT 12.6, INR 1.1, fibrinogen 188, fibrinogen degradation product positive, D-dimer 477. SMA-7; sodium 142, potassium 3.5, chloride 119, CO2 of 22, blood urea nitrogen 20, creatinine 0.6, random glucose 97. Lactic acid 0.7, calcium 7.4, total bilirubin 0.5, AST 19, ALT 33, alkaline phosphatase 26, total protein of 3.5, albumin 1.7. Urinalysis negative. Stool occult blood positive. Alcohol level less than 10. Microbiology, urine culture no growth. Blood culture no growth. Nasal smear MRSA negative. IMPRESSION: 1. Neurologic: Alert and awake, follows commands appropriate. No cranial nerve deficit. History of schizophrenia, depression, and anxiety disorder. Previously on Zyprexa and clonazepam. Seen by Psych consult. Recommend Haldol and Ativan as needed. Re-consult once the patient is medically stable. 2. Cardiac: Low normal systolic pressure, off Levophed; hypovolemia; and hypertension improved after transfusion. 3. Pulmonary: Chest x-ray is normal. CT chest, no acute abnormality. 4. Hematology: Anemia likely secondary to GI bleeding, superimposed on anemia of chronic disease status post transfusion multiple packed red blood cells. Low fibrinogen and increased FDP with low platelet count, to rule out etiology of chronic anemia..Hematology consult to asses anemia, ? consumptive coagulaopathy. 5. GI: The patient was noted to have melanotic stool with drop in the hemoglobin, likely source of GI status post transfusion multiple packed red blood cells. GI input noted. 6.:Renal no acute issues. 7:. Psychiatric: History of major depression, schizophrenia on Haldol and Ativan as needed. 8.ID: Emperic coverage for ? diverticulitis. . DVT prophylaxis with Venodyne boots. Heparin on hold due to GI bleeding and thrombocytopenia. Declan Almnote MD [facility]
--- NOTE | 2018-12-19 22:11 | CP.PCM.CON ---
History of Present Illness - History of Present Illness History of Present Illness: 58 year old male with a history of schizophrenia, depressiong, recent weightloss (lost 200 pounds), presenting with weakness and passing out, found to have severe anemia s/p PRBC transfusion with thrombocytopenia and coagulopathy. The patient is not a good historian and I am unable to obtain a history from the patient. Review of his records shows he was admitted with a hgb of 4 and required several units of PRBC. He has a rectal tube with melanotic appearing stool. Past medical, surgical, family, social history cannot obtained from the patient. Allergies: Per documentation [facility] Review of systems cannot be obtained from the patient. Past Patient History - Infectious Disease Hx of Infectious Diseases: None - Past Medical History & Family History Past Medical History?: Yes - Past Social History Alcohol: None Drugs: Denies - CARDIAC Hx Hypertension: Yes - PULMONARY Hx Respiratory Disorders: No - NEUROLOGICAL Hx Neurological Disorder: No - HEENT Hx HEENT Problems: No - RENAL Hx Chronic Kidney Disease: No - ENDOCRINE/METABOLIC Hx Endocrine Disorders: No - HEMATOLOGICAL/ONCOLOGICAL Hx Anemia: Yes - INTEGUMENTARY Hx Dermatological Problems: No - MUSCULOSKELETAL/RHEUMATOLOGICAL Hx Musculoskeletal Disorders: No Hx Falls: Yes - GASTROINTESTINAL Hx Vomiting: Yes (vomitting blood x 1 day) - GENITOURINARY/GYNECOLOGICAL Hx Genitourinary Disorders: No - PSYCHIATRIC Hx Anxiety: Yes Hx Depression: Yes Hx Schizophrenia: Yes - SURGICAL HISTORY Hx Surgeries: No Other/Comment: Rt. 3rd finger surgery - ANESTHESIA Hx Anesthesia: No Hx Anesthesia Reactions: No Hx Malignant Hyperthermia: No Meds Allergies/Adverse Reactions: Allergies Allergy/AdvReac Type Severity Reaction Status Date / Time No Known Allergies Allergy Verified 04/06/15 12:04 - Medications Medications: Current Medications Cyanocobalamin (Vitamin B12 1000 Mcg/Ml Inj) 1,000 mcg IM DAILY MATT Haloperidol Lactate (Haldol) 2 mg IM Q6 PRN PRN Reason: Agitation Last Admin: 12/19/18 13:11 Dose: 2 mg Piperacillin Sod/Tazobactam (Sod 2.25 gm/ Sodium Chloride) 100 mls @ 100 mls/hr IVPB Q8 MATT; Protocol Last Admin: 12/19/18 17:21 Dose: 100 mls/hr Lactated Ringer's (Lactated Ringer's) 1,000 mls @ 100 mls/hr IV .Q10H MATT Last Admin: 12/19/18 22:02 Dose: 100 mls/hr Pantoprazole Sodium 40 mg/ (Sodium Chloride) 100 mls @ 50 mls/hr IVPB Q5H MATT Last Admin: 12/19/18 22:02 Dose: 50 mls/hr Iron Sucrose 200 mg/ Sodium (Chloride) 110 mls @ 110 mls/hr IVPB DAILY MATT Stop: 12/25/18 09:01 Insulin Human Regular (Humulin R) 0 units SC ACCU-CHECK MATT; Protocol Last Admin: 12/19/18 22:05 Dose: Not Given Lorazepam (Ativan) 0.5 mg IVP Q6 PRN PRN Reason: Agitation Last Admin: 12/19/18 10:33 Dose: 0.5 mg Physical Exam - Head Exam Head Exam: ATRAUMATIC - Eye Exam Eye Exam: Normal appearance - ENT Exam ENT Exam: Mucous Membranes Dry - Respiratory Exam Respiratory Exam: NORMAL BREATHING PATTERN - Cardiovascular Exam Cardiovascular Exam: +S1, +S2 - GI/Abdominal Exam GI & Abdominal Exam: Normal Bowel Sounds - Neurological Exam Neurological exam: Altered - Psychiatric Exam Psychiatric exam: Flat Affect - Skin Skin Exam: Warm Results - Vital Signs Recent Vital Signs: Last Vital Signs Temp 97.4 F L 12/19/18 16:00 Pulse 86 12/19/18 18:00 Resp 19 12/19/18 18:00 BP 110/72 12/19/18 18:00 Pulse Ox 100 12/19/18 18:00 - Labs Result Diagrams: 12/19/18 06:20 12/19/18 06:20 Labs: Laboratory Results - last 24 hr 12/16/18 12/16/18 12/17/18 17:51 23:51 05:36 WBC RBC Hgb Hct MCV MCH MCHC RDW Plt Count Sodium Potassium Chloride Carbon Dioxide Anion Gap BUN Creatinine Est GFR ( Amer) Est GFR (Non-Af Amer) POC Glucose (mg/dL) 197 H 180 H Random Glucose Calcium Total Bilirubin AST ALT Alkaline Phosphatase Total Protein Albumin Globulin Albumin/Globulin Ratio Blood Type B POSITIVE Antibody Screen Negative Crossmatch See Detail BBK History Checked Patient has bt 12/17/18 12/17/18 12/17/18 13:33 17:15 21:38 WBC RBC Hgb Hct MCV MCH MCHC RDW Plt Count Sodium Potassium Chloride Carbon Dioxide Anion Gap BUN Creatinine Est GFR ( Amer) Est GFR (Non-Af Amer) POC Glucose (mg/dL) 269 H 166 H 128 H Random Glucose Calcium Total Bilirubin AST ALT Alkaline Phosphatase Total Protein Albumin Globulin Albumin/Globulin Ratio Blood Type Antibody Screen Crossmatch BBK History Checked 12/18/18 12/18/18 12/18/18 05:25 11:32 16:26 WBC RBC Hgb Hct MCV MCH MCHC RDW Plt Count Sodium Potassium Chloride Carbon Dioxide Anion Gap BUN Creatinine Est GFR ( Amer) Est GFR (Non-Af Amer) POC Glucose (mg/dL) 126 H 136 H 129 H Random Glucose Calcium Total Bilirubin AST ALT Alkaline Phosphatase Total Protein Albumin Globulin Albumin/Globulin Ratio Blood Type Antibody Screen Crossmatch BBK History Checked 12/18/18 12/19/18 12/19/18 20:41 06:20 06:20 WBC 6.2 RBC 2.67 L Hgb 8.0 L D Hct 23.7 L MCV 88.7 MCH 29.8 MCHC 33.6 RDW 14.2 Plt Count 87 L Sodium 142 Potassium 3.5 L Chloride 119 H Carbon Dioxide 22 Anion Gap 5 L BUN 20 Creatinine 0.6 L Est GFR ( Amer) > 60 Est GFR (Non-Af Amer) > 60 POC Glucose (mg/dL) 119 H Random Glucose 97 Calcium 7.4 L Total Bilirubin 0.5 AST 19 ALT 33 Alkaline Phosphatase 26 L Total Protein 3.5 L Albumin 1.7 L Globulin 1.8 L Albumin/Globulin Ratio 0.9 L Blood Type Antibody Screen Crossmatch BBK History Checked 12/19/18 12/19/18 12/19/18 06:29 11:18 17:10 WBC RBC Hgb Hct MCV MCH MCHC RDW Plt Count Sodium Potassium Chloride Carbon Dioxide Anion Gap BUN Creatinine Est GFR ( Amer) Est GFR (Non-Af Amer) POC Glucose (mg/dL) 88 120 H 121 H Random Glucose Calcium Total Bilirubin AST ALT Alkaline Phosphatase Total Protein Albumin Globulin Albumin/Globulin Ratio Blood Type Antibody Screen Crossmatch BBK History Checked 12/19/18 21:11 WBC RBC Hgb Hct MCV MCH MCHC RDW Plt Count Sodium Potassium Chloride Carbon Dioxide Anion Gap BUN Creatinine Est GFR ( Amer) Est GFR (Non-Af Amer) POC Glucose (mg/dL) 131 H Random Glucose Calcium Total Bilirubin AST ALT Alkaline Phosphatase Total Protein Albumin Globulin Albumin/Globulin Ratio Blood Type Antibody Screen Crossmatch BBK History Checked Assessment & Plan (1) Coagulopathy Assessment and Plan: suspect dilutional coagulopathy and likely nutritional component will give a dose of vit k PO today FFP PRN Status: Acute (2) Thrombocytopenia Assessment and Plan: dilutional coagulopathy Status: Acute (3) Anemia Assessment and Plan: multifactorial B12 deficiency - will start IM B12 supplementation iron deficiency - likely chronic GI blood loss, s/p transfusion support, will start IV iron, GI evaluation Thank you for this interesting consult. Status: Acute
[2018-12-19] MEDS ORDERED: Phytonadione 10 mg/ml Inj (Adult) SC ONE (23:13)
--- NOTE | 2018-12-20 01:28 | CP.PCM.PN ---
Subjective - Date & Time of Evaluation Date of Evaluation: 12/18/18 Time of Evaluation: 11:00 - Subjective Subjective: Pt seen and assessed at bedside. Hgb this morning went down to 6.0, despite multiple units of PRBC transfused. As per staff, pt had several episodes of melanotic stool. GI on consult, currently working up to identify source of GI bleed. Review of Systems: Reviewed and no additional remarkable complaints except fatigue. Objective Appears: Weak. Calm, Non-toxic, No Acute Distress. Head Exam: NORMAL INSPECTION, normocephalic. Eye Exam: Normal eye inspection, EOMI, PERRLA. Respiratory Exam: NORMAL BREATHING PATTERN, breath sounds diminished. Cardiovascular Exam: +S1, +S2. RRR. GI & Abdominal Exam: Soft, non-tender, non-distended. Neurological Exam: Pt able to follow basic commands, answers in short, mouthed words. Psychiatric exam: Normal mood. Calm and cooperative. Skin exam: Pale, warm and dry. Long, overgrown toe nails. Assessment/Impression/Plan: 1.) Anemia/Potential GI bleed -Given drop in Hgb S/P multiple units of PRBC, endoscopy should be considered to r/o cause of GI bleed. -Consults input appreciated. -Continues to have melanotic stool. Hgb this morning was 6.0, transfuse accordingly. -Protonix drip maintained, keep Pt NPO at this time. -Off Levophed, continue lactated Ringers for hypovolemic state. -Replenish electrolytes accordingly. -Continue current treatment. Objective - Vital Signs/Intake and Output Vital Signs (last 24 hours): Temp Pulse Resp BP Pulse Ox 98.1 F 115 H 28 H 98/50 L 100 12/20/18 00:00 12/20/18 00:00 12/20/18 00:00 12/20/18 00:00 12/20/18 00:00 Intake and Output: 12/19/18 12/20/18 18:59 06:59 Intake Total 1200 900 Output Total 1100 Balance 100 900 - Medications Medications: Current Medications Cyanocobalamin (Vitamin B12 1000 Mcg/Ml Inj) 1,000 mcg IM DAILY MATT Haloperidol Lactate (Haldol) 2 mg IM Q6 PRN PRN Reason: Agitation Last Admin: 12/19/18 13:11 Dose: 2 mg Lactated Ringer's (Lactated Ringer's) 1,000 mls @ 100 mls/hr IV .Q10H MATT Last Admin: 12/19/18 22:02 Dose: 100 mls/hr Pantoprazole Sodium 40 mg/ (Sodium Chloride) 100 mls @ 50 mls/hr IVPB Q5H MATT Last Admin: 12/19/18 22:02 Dose: 50 mls/hr Iron Sucrose 200 mg/ Sodium (Chloride) 110 mls @ 110 mls/hr IVPB DAILY MATT Stop: 12/25/18 09:01 Insulin Human Regular (Humulin R) 0 units SC ACCU-CHECK MATT; Protocol Last Admin: 12/19/18 22:05 Dose: Not Given Lorazepam (Ativan) 0.5 mg IVP Q6 PRN PRN Reason: Agitation Last Admin: 12/19/18 23:27 Dose: 0.5 mg - Labs Labs: 12/19/18 06:20 12/19/18 06:20 PT 12.6 Seconds (9.8-13.1) 12/18/18 16:45 INR 1.1 12/18/18 16:45 APTT 19.2 Seconds (25.6-37.1) L 12/16/18 17:51 Assessment and Plan (1) Schizophrenia Status: Acute (2) Severe anemia Status: Acute (3) Anemia Status: Acute (4) History of peptic ulcer disease Status: Acute
[2018-12-20] MEDS ORDERED: Lactated Ringer's 500 ML IV SCH ×2 (02:05→02:30)
[2018-12-20 02:26] LABS: MEAN CELL VOLUME 90.6 fl (80.0-94.0); MEAN CORPUSCULAR HEMOGLOBIN 30.2 pg (27.0-31.0); MEAN CORPUSCULAR HGB CONC 33.3 g/dL (33.0-37.0); RBC 1.48 Mil/uL (4.40-5.90); WHITE BLOOD COUNT 6.4 K/uL (4.8-10.8)
[2018-12-20 02:31] LABS: HEMOGLOBIN 4.5 g/dL (12.0-18.0)
[2018-12-20 02:35] LABS: ALB/GLOB RATIO 0.9 (1.0-2.1); ALBUMIN 1.4 g/dL (3.5-5.0); ALT/SGPT 38 U/L (21-72); AST/SGOT 21 U/L (17-59); BLOOD UREA NITROGEN 21 mg/dl (9-20); CALCIUM 6.8 mg/dL (8.4-10.2); GFR NON-AFRICAN AMERICAN > 60
[2018-12-20] MEDS: Pantoprazole 40 MG in Sodium Chloride 0.9% 100 ML IVPB SCH ×5 (03:23→23:00)
[2018-12-20] MEDS: Insulin Regular 100 units/ml SC SCH ×4 (08:07→23:04)
--- NOTE | 2018-12-20 09:16 | CP.PCM.PN ---
Subjective - Date & Time of Evaluation Date of Evaluation: 12/19/18 Time of Evaluation: 16:30 - Subjective Subjective: no active bleeding Objective - Vital Signs/Intake and Output Vital Signs (last 24 hours): Temp Pulse Resp BP Pulse Ox 97.6 F 109 H 22 93/52 L 100 12/20/18 08:00 12/20/18 08:00 12/20/18 08:00 12/20/18 08:00 12/20/18 08:00 Intake and Output: 12/20/18 12/20/18 06:59 18:59 Intake Total 2772.7 646.3 Output Total 850 Balance 1922.7 646.3 - Medications Medications: Current Medications Cyanocobalamin (Vitamin B12 1000 Mcg/Ml Inj) 1,000 mcg IM DAILY COUNTS INCLUDE 234 BEDS AT THE [facility] Last Admin: 12/20/18 08:23 Dose: 1,000 mcg Haloperidol Lactate (Haldol) 2 mg IM Q6 PRN PRN Reason: Agitation Last Admin: 12/19/18 13:11 Dose: 2 mg Pantoprazole Sodium 40 mg/ (Sodium Chloride) 100 mls @ 50 mls/hr IVPB Q5H COUNTS INCLUDE 234 BEDS AT THE [facility] Last Admin: 12/20/18 08:21 Dose: 50 mls/hr Iron Sucrose 200 mg/ Sodium (Chloride) 110 mls @ 110 mls/hr IVPB DAILY MATT Stop: 12/25/18 09:01 Last Admin: 12/20/18 08:23 Dose: 110 mls/hr Lactated Ringer's (Lactated Ringer's) 500 mls @ 999 mls/hr IV .Q31M MATT Last Admin: 12/20/18 02:21 Dose: 999 mls/hr Lactated Ringer's (Lactated Ringer's) 1,000 mls @ 150 mls/hr IV .Q6H40M MATT Norepinephrine Bitartrate 4 mg (/ Dextrose) 254 mls @ 38.1 mls/hr IV .Q6H40M COUNTS INCLUDE 234 BEDS AT THE [facility]; Protocol Last Admin: 12/20/18 08:09 Dose: 20 mcg/min, 76.2 mls/hr Insulin Human Regular (Humulin R) 0 units SC ACCU-CHECK MATT; Protocol Last Admin: 12/20/18 08:07 Dose: Not Given Lorazepam (Ativan) 0.5 mg IVP Q6 PRN PRN Reason: Agitation Last Admin: 12/20/18 08:12 Dose: 0.5 mg - Labs Labs: 12/20/18 02:23 12/20/18 02:23 PT 12.6 Seconds (9.8-13.1) 12/18/18 16:45 INR 1.1 12/18/18 16:45 APTT 19.2 Seconds (25.6-37.1) L 12/16/18 17:51 - Neck Exam Neck Exam: Normal Inspection - Respiratory Exam Respiratory Exam: Clear to Ausculation Bilateral, NORMAL BREATHING PATTERN - Cardiovascular Exam Cardiovascular Exam: REGULAR RHYTHM - GI/Abdominal Exam GI & Abdominal Exam: Soft, Normal Bowel Sounds Assessment and Plan - Assessment and Plan (Free Text) Assessment: 58 yo male with melena Hgb stable DIC panel ordered PPI egd in AM once consent obtained
--- NOTE | 2018-12-20 10:17 | CP.PCM.PN ---
Subjective - Date & Time of Evaluation Date of Evaluation: 12/20/18 Time of Evaluation: 10:14 - Subjective Subjective: melena overnight Objective - Vital Signs/Intake and Output Vital Signs (last 24 hours): Temp Pulse Resp BP Pulse Ox 97.5 F L 17 L 99 H 114/76 100 12/20/18 09:50 12/20/18 09:50 12/20/18 09:50 12/20/18 09:50 12/20/18 08:00 Intake and Output: 12/20/18 12/20/18 06:59 18:59 Intake Total 2772.7 696.3 Output Total 850 Balance 1922.7 696.3 - Medications Medications: Current Medications Cyanocobalamin (Vitamin B12 1000 Mcg/Ml Inj) 1,000 mcg IM DAILY [facility] Last Admin: 12/20/18 08:23 Dose: 1,000 mcg Haloperidol Lactate (Haldol) 2 mg IM Q6 PRN PRN Reason: Agitation Last Admin: 12/19/18 13:11 Dose: 2 mg Pantoprazole Sodium 40 mg/ (Sodium Chloride) 100 mls @ 50 mls/hr IVPB Q5H [facility] Last Admin: 12/20/18 08:21 Dose: 50 mls/hr Iron Sucrose 200 mg/ Sodium (Chloride) 110 mls @ 110 mls/hr IVPB DAILY MATT Stop: 12/25/18 09:01 Last Admin: 12/20/18 08:23 Dose: 110 mls/hr Lactated Ringer's (Lactated Ringer's) 500 mls @ 999 mls/hr IV .Q31M MATT Last Admin: 12/20/18 02:21 Dose: 999 mls/hr Lactated Ringer's (Lactated Ringer's) 1,000 mls @ 150 mls/hr IV .Q6H40M MATT Norepinephrine Bitartrate 4 mg (/ Dextrose) 254 mls @ 38.1 mls/hr IV .Q6H40M [facility]; Protocol Last Admin: 12/20/18 08:09 Dose: 20 mcg/min, 76.2 mls/hr Insulin Human Regular (Humulin R) 0 units SC ACCU-CHECK MATT; Protocol Last Admin: 12/20/18 08:07 Dose: Not Given Lorazepam (Ativan) 0.5 mg IVP Q6 PRN PRN Reason: Agitation Last Admin: 12/20/18 08:12 Dose: 0.5 mg - Labs Labs: 12/20/18 02:23 12/20/18 02:23 PT 12.6 Seconds (9.8-13.1) 12/18/18 16:45 INR 1.1 12/18/18 16:45 APTT 19.2 Seconds (25.6-37.1) L 12/16/18 17:51 - Neck Exam Neck Exam: Normal Inspection - Respiratory Exam Respiratory Exam: Clear to Ausculation Bilateral, NORMAL BREATHING PATTERN - Cardiovascular Exam Cardiovascular Exam: REGULAR RHYTHM - GI/Abdominal Exam GI & Abdominal Exam: Soft, Normal Bowel Sounds Assessment and Plan - Assessment and Plan (Free Text) Assessment: 58 yo male with melena planned EGD this morning, but due to overnight events, 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
[2018-12-20] MEDS: Lactated Ringer's 1,000 ML IV SCH ×2 (13:06→19:54)
[2018-12-20] MEDS ORDERED: Iodixanol 320 MG/ML 100 ML BOTTLE IV ONE (13:32)
[2018-12-20] MEDS ORDERED: Sodium Chloride 0.9% 100 ML ONE (13:33)
--- NOTE | 2018-12-20 16:05 | CT ---
Date of service: 12/20/2018 PROCEDURE: CT Angiography Abdomen HISTORY: GI bleeding COMPARISON: None. TECHNIQUE: Technique: CT angiography of the abdomen performed in the arterial phase of enhancement. Coronal and sagittal reformats, and well as rotating MIP images of the vessels generated at the workstation. Intravenous contrast dose: Visipaque 320, 99 cc Radiation dose: Total exam DLP = 1051.02 mGy-cm. This CT exam was performed using one or more of the following dose reduction techniques: Automated exposure control, adjustment of the mA and/or kV according to patient size, and/or use of iterative reconstruction technique. FINDINGS: CT ANGIOGRAPHY: No aortic atherosclerotic calcification or mural plaque present. ABDOMINAL AORTA:: Abdominal aorta is widely patent from the diaphragmatic hiatus to the bifurcation. No significant stenosis or dissection. Limited partially calcified atherosclerotic plaques identified primarily at mid and distal segments. MAJOR AORTIC BRANCHES: Celiac [place]: Unremarkable. Superior mesenteric artery: Unremarkable. Inferior mesenteric artery: Unremarkable. Renal arteries: Unremarkable. PELVIC ARTERIES: Right Common Iliac: Unremarkable. Right External Iliac: Limited partially calcified atherosclerosis identified at the distal segment. The vessel is widely patent from origin to bifurcation. Right Internal Iliac: Unremarkable. Left Common Iliac: Unremarkable. Left External Iliac: Limited partially calcified atherosclerosis identified at the distal segment. The vessel is widely patent from origin to bifurcation. Left Internal Iliac: Unremarkable. Incidental note is made of widely patent bilateral common femoral arteries. A right common femoral vein central venous line is identified terminating at the region of the junction of the right external and common iliac veins. Trace gas is seen local to the proximal portion of the catheter insertion which may reflect recent placement. NON-ANGIOGRAPHIC ASPECT OF THE EXAM: LOWER THORAX: Unremarkable. LIVER: Unremarkable. No gross lesion or ductal dilatation. GALLBLADDER AND BILE DUCTS: Prior cholecystectomy again evident with pneumobilia identified in the intra and extrahepatic biliary tree. Surgical clips are identified at the right upper quadrant abdomen inferior to the gallbladder fossa. PANCREAS: Unremarkable. No gross lesion or ductal dilatation. SPLEEN: Unremarkable. ADRENALS: Unremarkable. No mass. KIDNEYS AND URETERS: Iodinated contrast is seen refluxing into the right renal vein is appreciated with none on the left. No hydronephrosis. No solid mass. STOMACH AND BOWEL: Stomach is poorly evaluated due to near complete collapse. No large or small bowel obstruction identified. Large small bowel loops are filled gas and fluid which is slightly hyperdense in left greater than right hemicolon likely reflecting residual oral contrast material from prior CT 12/18/2018. No definitive active hemorrhage is seen within the small large bowel at this time. Consider follow-up nuclear gastrointestinal bleeding scan for additional characterization of the bowel. APPENDIX: Appendix not identified. PERITONEUM: Mild to moderate abdominal and pelvic ascites identified with streaky fatty changes in the mesentery and retroperitoneal fat. Similar changes seen in the extra abdominal fat suggestive of anasarca. No free intra peritoneal gas collection appreciated. LYMPH NODES: Unremarkable. No enlarged lymph nodes. BLADDER: Neff catheter decompresses urinary bladder. REPRODUCTIVE: Unremarkable. BONES: No acute fracture. OTHER FINDINGS: None. IMPRESSION: 1. No active extravasation identified within the lumen of the small or large bowel. Limited residual oral contrast within large bowel lumen limits evaluation somewhat. Minimal atherosclerotic changes seen related to the abdominal aorta and external iliac arteries. No significant stenosis is appreciated throughout the abdominal or pelvic major arteries including the abdominal aorta, or dissection. No aneurysm formation appreciable. 2. Prior cholecystectomy again evident with mild pneumobilia identified within central intra and extrahepatic biliary tree. 3. Neff catheter decompresses urinary bladder once again. Right common femoral vein central venous line inserted as discussed above with trace gas in local soft tissues indicating recent insertion most likely.
--- NOTE | 2018-12-20 16:56 | PN ---
DATE: 12/20/2018 CRITICAL CARE PROGRESS NOTE LOCATION: The patient in ICU, bed 434. TIME SPENT: 45 minutes. The patient is seen and evaluated at the bedside. Case was discussed in multidisciplinary ICU rounds this morning. Past medical, surgical, family and social history reviewed. SUBJECTIVE: A 58-year-old male with history significant for schizophrenia, depression, chronic anemia, admitted through ED on 12/16/2018 complaining of severe weakness and noted change in the mental status. On admission hemoglobin was 4.6, status post transfusion of 8 units of packed red blood cells. Over the last some 2 days noted to have two to three large melanotic stool with reduced in frequency now. Flexi-Seal in place, still with melanotic stool. No shortness of breath, chest pain or palpitation. Denies abdominal discomfort. Overnight status post transfusion two more units of packed red blood cells. Seen by a hematology consult. Dr. Jimenez recommended vitamin K and fresh frozen plasma due to dilutional coagulopathy. Significant drop in hemoglobin. GI evaluated and recommended CT angiogram of abdomen. Endoscopy on hold secondary to significant drop in hemoglobin and the risk associated with the anesthesia for the procedure. PHYSICAL EXAMINATION: GENERAL: This morning; alert and awake, able to follow commands appropriate, no distress noted. VITAL SIGNS: Temperature 97.5; heart rate of 87-109 regular; blood pressure 92/58 to 114/76 with mean arterial pressure around 69-72, on Levophed; saturation 100% on 2 liters nasal cannula; respiratory rate 22, thoracoabdominal. Intake 3973, output 1950, positive fluid balance 2021.7. Urine output 1200 mL. Stool estimated 750. Weight 167 pounds. HEAD, EYES, EARS, NOSE AND THROAT: Pupils are reactive. Conjunctivae pale. Sclerae white. No nystagmus. NECK: Supple. Trachea central. CHEST: Bilateral breath sounds, diminished in intensity, clear to auscultation. HEART: Rhythm regular. S1, S2 normal intensity. No S3, S4 gallop. No audible murmur. ABDOMEN: Bowel sounds present. Soft. Liver and spleen not palpable. Bladder not distended. Neff in place draining clear urine. Flexi-Seal in place. EXTREMITIES: Trace edema. DP palpable. No palpable cord. SKIN: Without rash. NEUROLOGIC: Alert and awake, moves all four extremities. No cranial nerve deficit. No motor deficit. Sensory system could not be tested, plantar flexor. CURRENT MEDICATIONS: Vitamin B12 1000 mcg IM daily, Haldol 2 mg IM every 6 hours p.r.n. for agitation, Accu-Chek with regular insulin coverage, iron infusion 200 mg daily, Ringer's lactate at 150 mL/hour, Ativan 0.5 mg IV every 6 hours p.r.n., Levophed at 10 mcg per minute, Protonix drip at 20 mg per hour, status post vitamin K 10 mg subcu. LABORATORY DATA: WBC 6.4, hemoglobin 4.5, dropped from 8 on 12/19/2018; platelet count 80. PT 12.6, INR 1.1, fibrinogen 188, positive more than 10, D-dimer 477. SMA-7; sodium 142, potassium 3.5, chloride 119, CO2 23, blood urea nitrogen 21, creatinine of 0.6, random glucose 140, calcium 6.8, albumin 1.4. Corrected calcium is normal. AST 21, ALT 38, bilirubin of 0.3, alkaline phosphatase 22. Urinalysis; rbc less than 1, microscopic wbc 1, hyaline cast more than 20. Stool occult blood positive. Alcohol level less than 10. Microbiology, urine culture no growth. Blood culture no growth. MRSA nasal smear negative. X-ray abdomen on 12/19/2018 shows decrease in the large and small bowel dilatation, seen on the previous CT, cecum does not appear to be distended. CT chest on 12/17/2018, limited study due to with mild atelectasis, apparent cholecystectomy with a small amount of central pneumobilia. CT abdomen and pelvis on 12/17 status post cholecystectomy, small amount of central pneumobilia, marked distention of the cecum. Rectum with large air-fluid level. IMPRESSION AND PLAN: 1. Neurologic: Alert and awake, follows commands but slow to respond. No cranial nerve deficit. History of schizophrenia, depression and anxiety. Previously on Zyprexa and clonazepam. Seen by a Psych consult. Medications on hold. Recommended Haldol and Ativan as needed. 2. Cardiac: Low normal systolic blood pressure; on the Levophed, resumed. Likely hypovolemic hypotension. No history of previous coronary artery disease. Transfusion of packed cells in progress. Continue intravenous hydration. 3. Pulmonary: Chest x-ray is normal. CT chest with no acute abnormality. 4. Hematology: Anemia. Likely acute blood loss/GI bleeding. Source to be being evaluated. EGD pending. Scheduled for CT angiogram. Continue transfusion. Maintain hemoglobin and hematocrit close to 10/30. Continue Protonix drip dilutional or conceptive dilutional coagulopathy. Given vitamin K and fresh frozen plasma. On iron infusion. We will add Procrit after the iron infusion. 5. Renal: No acute issues. Normal BUN and creatinine. 6. Psychiatric: History of major depression and schizophrenia. Continue Haldol and Ativan as needed. 7. Infectious disease: No clear evidence of infection, empirically on Zosyn for diverticulitis. Deep venous thrombosis prophylaxis with Venodyne boots. Heparin on hold due to gastrointestinal bleeding and thrombocytopenia. Keep head of bed 30 degrees up. Discussed with gastroenterology consult for further plan of care. Declan Almonte MD
[2018-12-20 17:39] LABS: MEAN CELL VOLUME 92.1 fl (80.0-94.0); MEAN CORPUSCULAR HEMOGLOBIN 31.1 pg (27.0-31.0); MEAN CORPUSCULAR HGB CONC 33.7 g/dL (33.0-37.0); RBC 1.97 Mil/uL (4.40-5.90); RED CELL DISTRIBUTION WIDTH 15.4 % (11.5-14.5); WHITE BLOOD COUNT 9.9 K/uL (4.8-10.8)
[2018-12-20 17:53] LABS: HEMOGLOBIN 6.1 g/dL (12.0-18.0)
[2018-12-21] MEDS: Pantoprazole 40 MG in Sodium Chloride 0.9% 100 ML IVPB SCH ×5 (06:03→20:40)
[2018-12-21] MEDS: Insulin Regular 100 units/ml SC SCH ×4 (06:29→23:00)
[2018-12-21 06:40] LABS: HEMOGLOBIN 7.9 g/dL (12.0-18.0); MEAN CELL VOLUME 93.4 fl (80.0-94.0); MEAN CORPUSCULAR HEMOGLOBIN 31.7 pg (27.0-31.0); MEAN CORPUSCULAR HGB CONC 33.9 g/dL (33.0-37.0); RBC 2.5 Mil/uL (4.40-5.90); RED CELL DISTRIBUTION WIDTH 14.9 % (11.5-14.5); WHITE BLOOD COUNT 9.7 K/uL (4.8-10.8)
[2018-12-21 08:38] LABS: BLOOD UREA NITROGEN 20 mg/dl (9-20); CALCIUM 7.3 mg/dL (8.4-10.2); GFR NON-AFRICAN AMERICAN > 60
--- NOTE | 2018-12-21 10:11 | CP.CCUPN ---
<Latricia Blakely - Last Filed: 12/21/18 16:15> CCU Subjective - Physician Review Events Since Last Encounter (Free Text): Pt seen/examined/discussed in rounds. 58 yo M with hx schizophrenia, admitted due to low Hgb at 4.6. He received 8units prbc on admission, which improved Hgb to above 7, however 2 days ago was noted to have melenic stools. Hematology consulted on case as well- has recommended Vit K and FFP. Overall, pt has received total of 12 units of PRBC and 3 units FFP during hosp stay. GI was consulted and endoscopy was planned, but not done yet due to labile Hgb levels. Nuclear med bleeding scan recommended in the meantime. Heme-onc consulted as well. Previously required vasopressors to keep BP up; however BP normalized and he is not off pressors. Pertinent labs: WBC 97.7 Hgb 7.9 Hct 23.3 PLT 90 Na 141 K 3.3 Cl 114 CO2 24 BUN 20 Cr 0.7 GFR > 60 Glucose 108 From 12/18 PT: 12.6 INR: 1.1 Vit B12: 185 Fibrinogen 188 Fibrinogen Degradation Products: positive Physical Exam: General: appears stated age male, somewhat unkempt HEENT: atraumatic, normocephalic, eyes open, speaking Resp: bilateral breath sounds and air movement CV: S1,S2, RRR Abd: soft, +bs Ext: no edema, has dry calluses on soles of feet, mycotic nails Assessment/Plan: Severe Anemia, improved - s/p 12 U PRBC and 3U FFP - unclear etiology - GI bleeding scan done this am and reported as no evidence of acute GI bleed - pending endoscopy- possibly to be done outpatient as patient is now stable and tolerating PO diet- f/u GI recs - Venofer as per heme/onc - May be due to coagulopathy - fibrin low, FDP high vs iron deficiency - iron low, % iron sat low as well - Morning labs: CBC, PT/INT/PTT, Fibrin - Continue protonix Vitamin B12 deficiency - Vit B 12 under 200 - Heme/onc consulted; started on 1000 mcg B12 IM daily Hypokalemia - Replete today, BMP in am Schizophrenia/Mental Health - Psych consulted - Haldol PRN - Pt on zyprexa at home, compliance unclear, psych rec to reassess when pt more awake Diet - Liquid/puree diet due to poor dentition DVT rophylaxis - SCDs Pt seen/discussed w/ Dr. Croft. CCU Objective - Vital Signs / Intake & Output Vital Signs (Last 4 hours): Vital Signs Temp Pulse Resp BP Pulse Ox 12/21/18 08:09 98.5 F 82 28 H 157/86 H 94 L 12/21/18 06:38 102 H 22 110/75 97 Intake and Output (Last 8hrs): Intake & Output 12/20/18 12/21/18 12/21/18 22:59 06:59 14:59 Intake Total 1622 1822 Output Total 600 700 Balance 1022 1122 Weight 179 lb 11.2 oz Intake: IV 931 1050 Intake, Piggyback 116 232 Oral 0 Tube Feeding 0 Blood Product 575 540 Red Blood Cells Cpd As1 0 Lr Unit [id number] Output: Urine 600 700 Urethral (Neff) 600 700 - Medications Active Medications: Active Medications Generic Name Dose Route Start Last Admin Trade Name Freq PRN Reason Stop Dose Admin Cyanocobalamin 1,000 mcg 12/20/18 09:00 12/20/18 08:23 Vitamin B12 1000 Mcg/Ml Inj IM 1,000 mcg DAILY MATT Administration Haloperidol Lactate 2 mg 12/18/18 17:36 12/19/18 13:11 Haldol IM 2 mg Q6 PRN Administration Agitation Iron Sucrose 200 mg/ Sodium 110 mls @ 110 mls/hr 12/20/18 09:00 12/20/18 08:23 Chloride IVPB 12/25/18 09:01 110 mls/hr DAILY MATT Administration Lactated Ringer's 500 mls @ 999 mls/hr 12/20/18 02:30 12/20/18 02:21 Lactated Ringer's IV 999 mls/hr .Q31M MATT Administration Lactated Ringer's 1,000 mls @ 150 mls/hr 12/20/18 02:46 12/20/18 19:54 Lactated Ringer's IV 150 mls/hr .Q6H40M MATT Administration Pantoprazole Sodium 40 mg/ 100 mls @ 20 mls/hr 12/21/18 04:45 12/21/18 06:32 Sodium Chloride IVPB 20 mls/hr Q5H MATT Administration 8 MG/HR Insulin Human Regular 0 units 12/16/18 23:00 12/21/18 06:29 Humulin R SC Not Given ACCU-CHECK MATT Protocol Lorazepam 0.5 mg 12/18/18 17:42 12/20/18 23:04 Ativan IVP 0.5 mg Q6 PRN Administration Agitation - Patient Studies Lab Studies: Microbiology Studies 12/16/18 18:20 Blood Culture - Preliminary Blood-Venous NO GROWTH AFTER 4 DAYS 12/16/18 17:51 Blood Culture - Preliminary Blood-Venous NO GROWTH AFTER 4 DAYS Lab Studies 12/21/18 12/21/18 12/20/18 Range/Units 06:30 06:30 17:00 WBC 9.7 9.9 D (4.8-10.8) K/uL RBC 2.50 L 1.97 L (4.40-5.90) Mil/uL Hgb 7.9 L 6.1 L* (12.0-18.0) g/dL Hct 23.3 L 18.1 L (35.0-51.0) % MCV 93.4 92.1 (80.0-94.0) fl MCH 31.7 H 31.1 H (27.0-31.0) pg MCHC 33.9 33.7 (33.0-37.0) g/dL RDW 14.9 H 15.4 H (11.5-14.5) % Plt Count 90 L 86 L (130-400) K/uL Sodium 141 (132-148) mmol/l Potassium 3.3 L (3.6-5.0) MMOL/L Chloride 114 H (98-107) mmol/L Carbon Dioxide 24 (22-30) mmol/L Anion Gap 6 L (10-20) BUN 20 (9-20) mg/dl Creatinine 0.7 L (0.8-1.5) mg/dl Est GFR ( Amer) > 60 Est GFR (Non-Af Amer) > 60 Random Glucose 108 (75-110) mg/dL Calcium 7.3 L (8.4-10.2) mg/dL Blood Type Antibody Screen Crossmatch BBK History Checked 12/20/18 Range/Units 02:46 WBC (4.8-10.8) K/uL RBC (4.40-5.90) Mil/uL Hgb (12.0-18.0) g/dL Hct (35.0-51.0) % MCV (80.0-94.0) fl MCH (27.0-31.0) pg MCHC (33.0-37.0) g/dL RDW (11.5-14.5) % Plt Count (130-400) K/uL Sodium (132-148) mmol/l Potassium (3.6-5.0) MMOL/L Chloride (98-107) mmol/L Carbon Dioxide (22-30) mmol/L Anion Gap (10-20) BUN (9-20) mg/dl Creatinine (0.8-1.5) mg/dl Est GFR ( Amer) Est GFR (Non-Af Amer) Random Glucose (75-110) mg/dL Calcium (8.4-10.2) mg/dL Blood Type B POSITIVE Antibody Screen Negative Crossmatch See Detail BBK History Checked Patient has bt Laboratory Results - last 24 hr 12/20/18 12/20/18 12/21/18 02:46 17:00 06:30 WBC 9.9 D RBC 1.97 L Hgb 6.1 L* Hct 18.1 L MCV 92.1 MCH 31.1 H MCHC 33.7 RDW 15.4 H Plt Count 86 L Sodium 141 Potassium 3.3 L Chloride 114 H Carbon Dioxide 24 Anion Gap 6 L BUN 20 Creatinine 0.7 L Est GFR ( Amer) > 60 Est GFR (Non-Af Amer) > 60 Random Glucose 108 Calcium 7.3 L Blood Type B POSITIVE Antibody Screen Negative Crossmatch See Detail BBK History Checked Patient has bt 12/21/18 06:30 WBC 9.7 RBC 2.50 L Hgb 7.9 L Hct 23.3 L MCV 93.4 MCH 31.7 H MCHC 33.9 RDW 14.9 H Plt Count 90 L Sodium Potassium Chloride Carbon Dioxide Anion Gap BUN Creatinine Est GFR ( Amer) Est GFR (Non-Af Amer) Random Glucose Calcium Blood Type Antibody Screen Crossmatch BBK History Checked Radiology Impressions: Radiology Impressions Angiography CT 12/20/18 10:09 IMPRESSION: 1. No active extravasation identified within the lumen of the small or large bowel. Limited residual oral contrast within large bowel lumen limits evaluation somewhat. Minimal atherosclerotic changes seen related to the abdominal aorta and external iliac arteries. No significant stenosis is appreciated throughout the abdominal or pelvic major arteries including the abdominal aorta, or dissection. No aneurysm formation appreciable. 2. Prior cholecystectomy again evident with mild pneumobilia identified within central intra and extrahepatic biliary tree. 3. Neff catheter decompresses urinary bladder once again. Right common femoral vein central venous line inserted as discussed above with trace gas in local soft tissues indicating recent insertion most likely. Fingerstick Blood Sugar Results: 130 <Luis Alberto Croft - Last Filed: 12/21/18 16:30> Assessment/Plan - Assessment and Plan (Free Text) Plan: Attestation: Patient seen and examined at the bedside with Resident Dr. Duglas Donnelly; and I agree with her outline of plans and management documented above as discussed on AM rounds; reflecting my review of all applicable clinical data, and participation in the care of the patient throughout the day in ICU; today, December 21, 2018.
--- NOTE | 2018-12-21 10:40 | NM ---
Date of service: 12/20/2018 PROCEDURE: Nuclear medicine gastrointestinal bleeding scan. HISTORY: bleeding COMPARISON: None available. TECHNIQUE: 4ccof patient blood was withdrawn and mixed with 23.7mCi of technetium ultra tagged. Images of the abdomen and pelvis were obtained in the anterior and posterior projection at 1 min intervals over a period of 45 min. FINDINGS: No abnormal extravasation of tracer was observed throughout the exam to indicate active bleeding within or outside the gastrointestinal tract. Physiologic activity was seen in the heart, liver, spleen and blood vessels. IMPRESSION: No evidence of active gastrointestinal bleeding.
[2018-12-21] MEDS: Lactated Ringer's 1,000 ML IV SCH ×2 (10:51→20:49)
[2018-12-21] MEDS: Potassium CL 10mEq/100ml 100 ML IVPB SCH ×3 (12:37→15:30)
[2018-12-21] MEDS ORDERED: EPINEPHrine 1 mg/ml (1:1000) Inj ONE (12:49)
--- NOTE | 2018-12-21 22:42 | CP.PCM.PN ---
Subjective - Date & Time of Evaluation Date of Evaluation: 12/20/18 Time of Evaluation: 12:00 - Subjective Subjective: Appears comfortable. discussed with teenage program director and GI Objective - Vital Signs/Intake and Output Vital Signs (last 24 hours): Temp Pulse Resp BP Pulse Ox 98.5 F 100 H 32 H 123/66 98 12/21/18 20:00 12/21/18 22:00 12/21/18 22:00 12/21/18 22:00 12/21/18 22:00 Intake and Output: 12/21/18 12/22/18 18:59 06:59 Intake Total 2200 740 Output Total 1000 Balance 1200 740 - Medications Medications: Current Medications Cyanocobalamin (Vitamin B12 1000 Mcg/Ml Inj) 1,000 mcg IM DAILY [facility] Last Admin: 12/21/18 10:54 Dose: 1,000 mcg Haloperidol Lactate (Haldol) 2 mg IM Q6 PRN PRN Reason: Agitation Last Admin: 12/19/18 13:11 Dose: 2 mg Iron Sucrose 200 mg/ Sodium (Chloride) 110 mls @ 110 mls/hr IVPB DAILY MATT Stop: 12/25/18 09:01 Last Admin: 12/21/18 10:53 Dose: 110 mls/hr Lactated Ringer's (Lactated Ringer's) 1,000 mls @ 150 mls/hr IV .Q6H40M [facility] Last Admin: 12/21/18 20:49 Dose: 150 mls/hr Pantoprazole Sodium 40 mg/ (Sodium Chloride) 100 mls @ 20 mls/hr IVPB Q5H [facility] Last Admin: 12/21/18 20:40 Dose: 20 mls/hr Insulin Human Regular (Humulin R) 0 units SC ACCU-CHECK MATT; Protocol Last Admin: 12/21/18 17:13 Dose: Not Given Lorazepam (Ativan) 0.5 mg IVP Q6 PRN PRN Reason: Agitation - Labs Labs: 12/21/18 06:30 12/21/18 06:30 PT 12.6 Seconds (9.8-13.1) 12/18/18 16:45 INR 1.1 12/18/18 16:45 APTT 19.2 Seconds (25.6-37.1) L 12/16/18 17:51 - Head Exam Head Exam: ATRAUMATIC - Eye Exam Eye Exam: Normal appearance - ENT Exam ENT Exam: Mucous Membranes Dry - Respiratory Exam Respiratory Exam: NORMAL BREATHING PATTERN - Cardiovascular Exam Cardiovascular Exam: +S1, +S2 - GI/Abdominal Exam GI & Abdominal Exam: Normal Bowel Sounds Assessment and Plan (1) Coagulopathy Assessment & Plan: dilutional coagulopathy and likely nutritional component s/p vit k for FFP today Status: Acute (2) Thrombocytopenia Assessment & Plan: dilutional coagulopathy Status: Acute (3) Anemia Assessment & Plan: multifactorial B12 deficiency - on IM B12 supplementation iron deficiency - likely chronic GI blood loss, s/p transfusion support, on IV iron, GI evaluation Status: Acute
--- NOTE | 2018-12-21 22:44 | CP.PCM.PN ---
Subjective - Date & Time of Evaluation Date of Evaluation: 12/21/18 Time of Evaluation: 18:00 - Subjective Subjective: No complaints, s/p bleeding scan Objective - Vital Signs/Intake and Output Vital Signs (last 24 hours): Temp Pulse Resp BP Pulse Ox 98.5 F 100 H 32 H 123/66 98 12/21/18 20:00 12/21/18 22:00 12/21/18 22:00 12/21/18 22:00 12/21/18 22:00 Intake and Output: 12/21/18 12/22/18 18:59 06:59 Intake Total 2200 740 Output Total 1000 Balance 1200 740 - Medications Medications: Current Medications Cyanocobalamin (Vitamin B12 1000 Mcg/Ml Inj) 1,000 mcg IM DAILY [facility] Last Admin: 12/21/18 10:54 Dose: 1,000 mcg Haloperidol Lactate (Haldol) 2 mg IM Q6 PRN PRN Reason: Agitation Last Admin: 12/19/18 13:11 Dose: 2 mg Iron Sucrose 200 mg/ Sodium (Chloride) 110 mls @ 110 mls/hr IVPB DAILY MATT Stop: 12/25/18 09:01 Last Admin: 12/21/18 10:53 Dose: 110 mls/hr Lactated Ringer's (Lactated Ringer's) 1,000 mls @ 150 mls/hr IV .Q6H40M [facility] Last Admin: 12/21/18 20:49 Dose: 150 mls/hr Pantoprazole Sodium 40 mg/ (Sodium Chloride) 100 mls @ 20 mls/hr IVPB Q5H [facility] Last Admin: 12/21/18 20:40 Dose: 20 mls/hr Insulin Human Regular (Humulin R) 0 units SC ACCU-CHECK MATT; Protocol Last Admin: 12/21/18 17:13 Dose: Not Given Lorazepam (Ativan) 0.5 mg IVP Q6 PRN PRN Reason: Agitation - Labs Labs: 12/21/18 06:30 12/21/18 06:30 PT 12.6 Seconds (9.8-13.1) 12/18/18 16:45 INR 1.1 12/18/18 16:45 APTT 19.2 Seconds (25.6-37.1) L 12/16/18 17:51 - Head Exam Head Exam: ATRAUMATIC - Eye Exam Eye Exam: Normal appearance - ENT Exam ENT Exam: Mucous Membranes Dry - Respiratory Exam Respiratory Exam: NORMAL BREATHING PATTERN - Cardiovascular Exam Cardiovascular Exam: +S1, +S2 - GI/Abdominal Exam GI & Abdominal Exam: Normal Bowel Sounds Assessment and Plan (1) Coagulopathy Assessment & Plan: dilutional coagulopathy and likely nutritional component s/p vit k for FFP today Status: Acute (2) Thrombocytopenia Assessment & Plan: dilutional coagulopathy Status: Acute (3) Anemia Assessment & Plan: multifactorial B12 deficiency - on IM B12 supplementation iron deficiency - likely chronic GI blood loss, s/p transfusion support, on IV iron, GI evaluation Status: Acute
--- NOTE | 2018-12-22 00:55 | CP.PCM.PN ---
Subjective - Date & Time of Evaluation Date of Evaluation: 12/21/18 Time of Evaluation: 10:00 - Subjective Subjective: Pt currently away from room, undergoing nuclear GI Bleed Scan. Labs, chart, and plan of care reviewed. Plan of care discussed with staff. Assessment/Impression/Plan: 1.) Anemia/Potential GI bleed -Undergoing GI bleed scan. Has received 12 units PRBC this admission + 3 FFP. -Endoscopy on hold at this time. -Currently on Levophed for BP support. -Consults input appreciated. -Anemia is possibly secondary to coagulopathy, Hem/Onc on consult. Vit K + FFP as needed. -Replenish electrolytes accordingly. -Continue current treatment. Objective - Vital Signs/Intake and Output Vital Signs (last 24 hours): Temp Pulse Resp BP Pulse Ox 98.5 F 100 H 32 H 123/66 98 12/21/18 20:00 12/21/18 22:00 12/21/18 22:00 12/21/18 22:00 12/21/18 22:00 Intake and Output: 12/21/18 12/22/18 18:59 06:59 Intake Total 2200 740 Output Total 1000 Balance 1200 740 - Medications Medications: Current Medications Cyanocobalamin (Vitamin B12 1000 Mcg/Ml Inj) 1,000 mcg IM DAILY [facility] Last Admin: 12/21/18 10:54 Dose: 1,000 mcg Haloperidol Lactate (Haldol) 2 mg IM Q6 PRN PRN Reason: Agitation Last Admin: 12/19/18 13:11 Dose: 2 mg Iron Sucrose 200 mg/ Sodium (Chloride) 110 mls @ 110 mls/hr IVPB DAILY MATT Stop: 12/25/18 09:01 Last Admin: 12/21/18 10:53 Dose: 110 mls/hr Lactated Ringer's (Lactated Ringer's) 1,000 mls @ 150 mls/hr IV .Q6H40M [facility] Last Admin: 12/21/18 20:49 Dose: 150 mls/hr Pantoprazole Sodium 40 mg/ (Sodium Chloride) 100 mls @ 20 mls/hr IVPB Q5H [facility] Last Admin: 12/21/18 20:40 Dose: 20 mls/hr Insulin Human Regular (Humulin R) 0 units SC ACCU-CHECK MATT; Protocol Last Admin: 12/21/18 17:13 Dose: Not Given Lorazepam (Ativan) 0.5 mg IVP Q6 PRN PRN Reason: Agitation - Labs Labs: 12/21/18 06:30 12/21/18 06:30 PT 12.6 Seconds (9.8-13.1) 12/18/18 16:45 INR 1.1 12/18/18 16:45 APTT 19.2 Seconds (25.6-37.1) L 12/16/18 17:51 Assessment and Plan (1) Schizophrenia Status: Acute (2) Severe anemia Status: Acute (3) Anemia Status: Acute (4) History of peptic ulcer disease Status: Acute
[2018-12-22] MEDS: Lactated Ringer's 1,000 ML IV SCH ×2 (04:17→16:47)
[2018-12-22] MEDS: Pantoprazole 40 MG in Sodium Chloride 0.9% 100 ML IVPB SCH ×5 (04:19→21:43)
[2018-12-22 06:39] LABS: BASO % 0.2 % (0.0-2.0); EOS # 0.1 K/uL (0.0-0.7); EOS % 1.9 % (0.0-4.0); HEMOGLOBIN 6.9 g/dL (12.0-18.0); LYMPH # 1.3 K/uL (1.0-4.3); LYMPH % 18.3 % (20.0-40.0); MEAN CELL VOLUME 93.9 fl (80.0-94.0); MEAN CORPUSCULAR HEMOGLOBIN 31.1 pg (27.0-31.0); MEAN CORPUSCULAR HGB CONC 33.1 g/dL (33.0-37.0); MEAN PLATELET VOLUME 8.6 fl (7.2-11.7); MONO # 0.6 K/uL (0.0-0.8); MONO % 8.1 % (0.0-10.0); NEUT # 5.3 K/uL (1.8-7.0); NEUT % 71.5 % (50.0-75.0); NRBC % 1.4 % (0.0-0.0); RBC 2.22 Mil/uL (4.40-5.90); RED CELL DISTRIBUTION WIDTH 15.3 % (11.5-14.5); WHITE BLOOD COUNT 7.4 K/uL (4.8-10.8)
[2018-12-22] MEDS: Insulin Regular 100 units/ml SC SCH ×4 (06:43→22:59)
[2018-12-22 06:52] LABS: BLOOD UREA NITROGEN 11 mg/dl (9-20); CALCIUM 7.3 mg/dL (8.4-10.2); GFR NON-AFRICAN AMERICAN > 60
[2018-12-22 07:08] LABS: PROTHROMBIN TIME 11.6 Seconds (9.8-13.1)
[2018-12-22 07:10] LABS: PARTIAL THROMBOPLASTIN TIME 26.5 Seconds (25.6-37.1)
[2018-12-22] MEDS: Potassium CL 10mEq/100ml 100 ML IVPB SCH ×4 (09:58→14:27)
--- NOTE | 2018-12-22 13:15 | CP.CCUPN ---
<NatalioradhamaidaLatricia - Last Filed: 12/22/18 13:31> CCU Subjective - Physician Review Events Since Last Encounter (Free Text): Pt seen/examined/discussed in rounds. 58 yo M with hx schizophrenia, admitted due to low Hgb at 4.6. He received 8units prbc on admission, which improved Hgb to above 7, however 3 days ago was noted to have melenic stools. Patient does not appear in distress however requires frequent re-orientation because he pulls at lines. Hematology consulted on case as well- has recommended Vit K and FFP, IM B12 injections, and venofer. GI was consulted and endoscopy was planned, but not done yet due to labile Hgb levels. Nuclear med bleeding scan recommended in the meantime and was completed did not show evidence of bleeding. Previously required vasopressors to keep BP up; however BP normalized and he is not off pressors. Overall, pt has received total of 12 units of PRBC and 3 units FFP during hosp stay so far. This morning, Hgb 6.9 and 1 additional unit was ordered. Pertinent labs: WBC 7.4 Hgb 6.9 Hct 20.8 PLT 102 Na 135 K 3.1 Cl 109 CO2 23 BUN 11 Cr 0.5 GFR > 60 Glucose 81 PT: 11.6 INR: 1.0 Fibrinogen 225 Physical Exam: General: appears stated age male, somewhat unkempt HEENT: atraumatic, normocephalic, eyes open, speaking Resp: bilateral breath sounds and air movement CV: S1,S2, RRR Abd: soft, +bs Ext: no edema, has dry calluses on soles of feet, mycotic nails Assessment/Plan: Severe Anemia, improved - s/p 12 U PRBC and 3U FFP; additional unit PRBC today - unclear etiology - GI bleeding scan done this am and reported as no evidence of acute GI bleed - pending endoscopy- possibly to be done outpatient as patient is now stable and tolerating PO diet- f/u GI recs - Venofer as per heme/onc - May be due to coagulopathy - fibrin low, FDP high vs iron deficiency - iron low, % iron sat low as well - Continue protonix Vitamin B12 deficiency - Vit B 12 under 200 - Heme/onc consulted; started on 1000 mcg B12 IM daily Hypokalemia - Still hypokalemic today; replete and check BMP in am Schizophrenia/Mental Health - Psych consulted - Haldol PRN - Pt on zyprexa at home, compliance unclear, psych rec to reassess when stable Diet - Liquid/puree diet due to poor dentition DVT prophylaxis - SCDs Pt seen/discussed w/ Dr. Croft. CCU Objective - Vital Signs / Intake & Output Vital Signs (Last 4 hours): Vital Signs Temp Pulse Resp BP Pulse Ox 12/22/18 12:13 99.5 F 98 H 24 136/81 99 12/22/18 10:00 91 H 21 136/81 97 Intake and Output (Last 8hrs): Intake & Output 12/21/18 12/22/18 12/22/18 22:59 06:59 14:59 Intake Total 1340 1360 830 Output Total 1220 654 1594 Balance 340 460 -170 Weight 185 lb 3.2 oz Intake: IV 1200 1200 530 Intake, Piggyback 80 160 300 Oral 60 Output: Urine 2914 934 1858 Urethral (Neff) 8760 510 2356 - Physical Exam Head: Positive for: Atraumatic, Normocephalic Pupils: Positive for: PERRL Extroacular Muscles: Positive for: EOMI Conjunctiva: Positive for: Normal Mouth: Positive for: Dry Pharnyx: Positive for: Normal Nose (External): Positive for: Atraumatic Neck: Positive for: Normal Range of Motion Respiratory/Chest: Positive for: Clear to Auscultation Cardiovascular: Positive for: Regular Rate and Rhythm Abdomen: Positive for: Normal Bowel Sounds Upper Extremity: Positive for: Normal Inspection Lower Extremity: Positive for: Normal Inspection Psychiatric: Positive for: Alert - Medications Active Medications: Active Medications Generic Name Dose Route Start Last Admin Trade Name Freq PRN Reason Stop Dose Admin Cyanocobalamin 1,000 mcg 12/20/18 09:00 12/22/18 10:02 Vitamin B12 1000 Mcg/Ml Inj IM 1,000 mcg DAILY MATT Administration Haloperidol Lactate 2 mg 12/18/18 17:36 12/19/18 13:11 Haldol IM 2 mg Q6 PRN Administration Agitation Iron Sucrose 200 mg/ Sodium 110 mls @ 110 mls/hr 12/20/18 09:00 12/21/18 10:53 Chloride IVPB 12/25/18 09:01 110 mls/hr DAILY MATT Administration Lactated Ringer's 1,000 mls @ 150 mls/hr 12/20/18 02:46 12/22/18 04:17 Lactated Ringer's IV 150 mls/hr .Q6H40M MATT Administration Pantoprazole Sodium 40 mg/ 100 mls @ 20 mls/hr 12/21/18 04:45 12/22/18 12:50 Sodium Chloride IVPB 20 mls/hr Q5H MATT Administration 8 MG/HR Insulin Human Regular 0 units 12/16/18 23:00 12/22/18 06:43 Humulin R SC Not Given ACCU-CHECK MATT Protocol Lorazepam 0.5 mg 12/22/18 00:00 Ativan IVP Q6 PRN Agitation - Patient Studies Lab Studies: Microbiology Studies 12/16/18 18:20 Blood Culture - Final Blood-Venous NO GROWTH AFTER 5 DAYS Gram Stain - Final TEST NOT PERFORMED 12/16/18 17:51 Blood Culture - Final Blood-Venous NO GROWTH AFTER 5 DAYS Gram Stain - Final TEST NOT PERFORMED Lab Studies 12/22/18 12/22/18 12/22/18 Range/Units 05:10 05:10 05:10 WBC 7.4 (4.8-10.8) K/uL RBC 2.22 L (4.40-5.90) Mil/uL Hgb 6.9 L (12.0-18.0) g/dL Hct 20.8 L (35.0-51.0) % MCV 93.9 (80.0-94.0) fl MCH 31.1 H (27.0-31.0) pg MCHC 33.1 (33.0-37.0) g/dL RDW 15.3 H (11.5-14.5) % Plt Count 102 L (130-400) K/uL MPV 8.6 (7.2-11.7) fl Neut % (Auto) 71.5 (50.0-75.0) % Lymph % (Auto) 18.3 L (20.0-40.0) % Hubbard % (Auto) 8.1 (0.0-10.0) % Eos % (Auto) 1.9 (0.0-4.0) % Baso % (Auto) 0.2 (0.0-2.0) % Neut # (Auto) 5.3 (1.8-7.0) K/uL Lymph # (Auto) 1.3 (1.0-4.3) K/uL Hubbard # (Auto) 0.6 (0.0-0.8) K/uL Eos # (Auto) 0.1 (0.0-0.7) K/uL Baso # (Auto) 0.0 (0.0-0.2) K/uL PT 11.6 (9.8-13.1) Seconds INR 1.0 APTT 26.5 (25.6-37.1) Seconds Fibrinogen 225 (200-400) mg/dl Sodium 135 (132-148) mmol/l Potassium 3.1 L (3.6-5.0) MMOL/L Chloride 109 H (98-107) mmol/L Carbon Dioxide 23 (22-30) mmol/L Anion Gap 6 L (10-20) BUN 11 (9-20) mg/dl Creatinine 0.5 L (0.8-1.5) mg/dl Est GFR ( Amer) > 60 Est GFR (Non-Af Amer) > 60 POC Glucose (mg/dL) (65-110) mg/dL Random Glucose 81 (75-110) mg/dL Calcium 7.3 L (8.4-10.2) mg/dL Blood Type Antibody Screen Crossmatch BBK History Checked 12/22/18 12/21/18 12/21/18 Range/Units 04:31 20:55 16:50 WBC (4.8-10.8) K/uL RBC (4.40-5.90) Mil/uL Hgb (12.0-18.0) g/dL Hct (35.0-51.0) % MCV (80.0-94.0) fl MCH (27.0-31.0) pg MCHC (33.0-37.0) g/dL RDW (11.5-14.5) % Plt Count (130-400) K/uL MPV (7.2-11.7) fl Neut % (Auto) (50.0-75.0) % Lymph % (Auto) (20.0-40.0) % Hubbard % (Auto) (0.0-10.0) % Eos % (Auto) (0.0-4.0) % Baso % (Auto) (0.0-2.0) % Neut # (Auto) (1.8-7.0) K/uL Lymph # (Auto) (1.0-4.3) K/uL Hubbard # (Auto) (0.0-0.8) K/uL Eos # (Auto) (0.0-0.7) K/uL Baso # (Auto) (0.0-0.2) K/uL PT (9.8-13.1) Seconds INR APTT (25.6-37.1) Seconds Fibrinogen (200-400) mg/dl Sodium (132-148) mmol/l Potassium (3.6-5.0) MMOL/L Chloride (98-107) mmol/L Carbon Dioxide (22-30) mmol/L Anion Gap (10-20) BUN (9-20) mg/dl Creatinine (0.8-1.5) mg/dl Est GFR ( Amer) Est GFR (Non-Af Amer) POC Glucose (mg/dL) 97 134 H 127 H (65-110) mg/dL Random Glucose (75-110) mg/dL Calcium (8.4-10.2) mg/dL Blood Type Antibody Screen Crossmatch BBK History Checked 12/21/18 12/21/18 12/20/18 Range/Units 11:30 04:27 21:20 WBC (4.8-10.8) K/uL RBC (4.40-5.90) Mil/uL Hgb (12.0-18.0) g/dL Hct (35.0-51.0) % MCV (80.0-94.0) fl MCH (27.0-31.0) pg MCHC (33.0-37.0) g/dL RDW (11.5-14.5) % Plt Count (130-400) K/uL MPV (7.2-11.7) fl Neut % (Auto) (50.0-75.0) % Lymph % (Auto) (20.0-40.0) % Hubbard % (Auto) (0.0-10.0) % Eos % (Auto) (0.0-4.0) % Baso % (Auto) (0.0-2.0) % Neut # (Auto) (1.8-7.0) K/uL Lymph # (Auto) (1.0-4.3) K/uL Hubbard # (Auto) (0.0-0.8) K/uL Eos # (Auto) (0.0-0.7) K/uL Baso # (Auto) (0.0-0.2) K/uL PT (9.8-13.1) Seconds INR APTT (25.6-37.1) Seconds Fibrinogen (200-400) mg/dl Sodium (132-148) mmol/l Potassium (3.6-5.0) MMOL/L Chloride (98-107) mmol/L Carbon Dioxide (22-30) mmol/L Anion Gap (10-20) BUN (9-20) mg/dl Creatinine (0.8-1.5) mg/dl Est GFR ( Amer) Est GFR (Non-Af Amer) POC Glucose (mg/dL) 113 H 130 H 137 H (65-110) mg/dL Random Glucose (75-110) mg/dL Calcium (8.4-10.2) mg/dL Blood Type Antibody Screen Crossmatch BBK History Checked 12/20/18 12/20/18 12/20/18 Range/Units 17:02 11:12 06:40 WBC (4.8-10.8) K/uL RBC (4.40-5.90) Mil/uL Hgb (12.0-18.0) g/dL Hct (35.0-51.0) % MCV (80.0-94.0) fl MCH (27.0-31.0) pg MCHC (33.0-37.0) g/dL RDW (11.5-14.5) % Plt Count (130-400) K/uL MPV (7.2-11.7) fl Neut % (Auto) (50.0-75.0) % Lymph % (Auto) (20.0-40.0) % Hubbard % (Auto) (0.0-10.0) % Eos % (Auto) (0.0-4.0) % Baso % (Auto) (0.0-2.0) % Neut # (Auto) (1.8-7.0) K/uL Lymph # (Auto) (1.0-4.3) K/uL [place] # (Auto) (0.0-0.8) K/uL Eos # (Auto) (0.0-0.7) K/uL Baso # (Auto) (0.0-0.2) K/uL PT (9.8-13.1) Seconds INR APTT (25.6-37.1) Seconds Fibrinogen (200-400) mg/dl Sodium (132-148) mmol/l Potassium (3.6-5.0) MMOL/L Chloride (98-107) mmol/L Carbon Dioxide (22-30) mmol/L Anion Gap (10-20) BUN (9-20) mg/dl Creatinine (0.8-1.5) mg/dl Est GFR ( Amer) Est GFR (Non-Af Amer) POC Glucose (mg/dL) 118 H 196 H 184 H (65-110) mg/dL Random Glucose (75-110) mg/dL Calcium (8.4-10.2) mg/dL Blood Type Antibody Screen Crossmatch BBK History Checked 12/20/18 Range/Units 02:46 WBC (4.8-10.8) K/uL RBC (4.40-5.90) Mil/uL Hgb (12.0-18.0) g/dL Hct (35.0-51.0) % MCV (80.0-94.0) fl MCH (27.0-31.0) pg MCHC (33.0-37.0) g/dL RDW (11.5-14.5) % Plt Count (130-400) K/uL MPV (7.2-11.7) fl Neut % (Auto) (50.0-75.0) % Lymph % (Auto) (20.0-40.0) % Hubbard % (Auto) (0.0-10.0) % Eos % (Auto) (0.0-4.0) % Baso % (Auto) (0.0-2.0) % Neut # (Auto) (1.8-7.0) K/uL Lymph # (Auto) (1.0-4.3) K/uL Hubbard # (Auto) (0.0-0.8) K/uL Eos # (Auto) (0.0-0.7) K/uL Baso # (Auto) (0.0-0.2) K/uL PT (9.8-13.1) Seconds INR APTT (25.6-37.1) Seconds Fibrinogen (200-400) mg/dl Sodium (132-148) mmol/l Potassium (3.6-5.0) MMOL/L Chloride (98-107) mmol/L Carbon Dioxide (22-30) mmol/L Anion Gap (10-20) BUN (9-20) mg/dl Creatinine (0.8-1.5) mg/dl Est GFR ( Amer) Est GFR (Non-Af Amer) POC Glucose (mg/dL) (65-110) mg/dL Random Glucose (75-110) mg/dL Calcium (8.4-10.2) mg/dL Blood Type B POSITIVE Antibody Screen Negative Crossmatch See Detail BBK History Checked Patient has bt Laboratory Results - last 24 hr 12/20/18 12/20/18 12/20/18 02:46 06:40 11:12 WBC RBC Hgb Hct MCV MCH MCHC RDW Plt Count MPV Neut % (Auto) Lymph % (Auto) Hubbard % (Auto) Eos % (Auto) Baso % (Auto) Neut # (Auto) Lymph # (Auto) Hubbard # (Auto) Eos # (Auto) Baso # (Auto) PT INR APTT Fibrinogen Sodium Potassium Chloride Carbon Dioxide Anion Gap BUN Creatinine Est GFR ( Amer) Est GFR (Non-Af Amer) POC Glucose (mg/dL) 184 H 196 H Random Glucose Calcium Blood Type B POSITIVE Antibody Screen Negative Crossmatch See Detail BBK History Checked Patient has bt 12/20/18 12/20/18 12/21/18 17:02 21:20 04:27 WBC RBC Hgb Hct MCV MCH MCHC RDW Plt Count MPV Neut % (Auto) Lymph % (Auto) Hubbard % (Auto) Eos % (Auto) Baso % (Auto) Neut # (Auto) Lymph # (Auto) Hubbard # (Auto) Eos # (Auto) Baso # (Auto) PT INR APTT Fibrinogen Sodium Potassium Chloride Carbon Dioxide Anion Gap BUN Creatinine Est GFR ( Amer) Est GFR (Non-Af Amer) POC Glucose (mg/dL) 118 H 137 H 130 H Random Glucose Calcium Blood Type Antibody Screen Crossmatch BBK History Checked 12/21/18 12/21/18 12/21/18 11:30 16:50 20:55 WBC RBC Hgb Hct MCV MCH MCHC RDW Plt Count MPV Neut % (Auto) Lymph % (Auto) Hubbard % (Auto) Eos % (Auto) Baso % (Auto) Neut # (Auto) Lymph # (Auto) Hubbard # (Auto) Eos # (Auto) Baso # (Auto) PT INR APTT Fibrinogen Sodium Potassium Chloride Carbon Dioxide Anion Gap BUN Creatinine Est GFR ( Amer) Est GFR (Non-Af Amer) POC Glucose (mg/dL) 113 H 127 H 134 H Random Glucose Calcium Blood Type Antibody Screen Crossmatch BBK History Checked 12/22/18 12/22/18 12/22/18 04:31 05:10 05:10 WBC 7.4 RBC 2.22 L Hgb 6.9 L Hct 20.8 L MCV 93.9 MCH 31.1 H MCHC 33.1 RDW 15.3 H Plt Count 102 L MPV 8.6 Neut % (Auto) 71.5 Lymph % (Auto) 18.3 L Hubbard % (Auto) 8.1 Eos % (Auto) 1.9 Baso % (Auto) 0.2 Neut # (Auto) 5.3 Lymph # (Auto) 1.3 Hubbard # (Auto) 0.6 Eos # (Auto) 0.1 Baso # (Auto) 0.0 PT 11.6 INR 1.0 APTT 26.5 Fibrinogen 225 Sodium Potassium Chloride Carbon Dioxide Anion Gap BUN Creatinine Est GFR ( Amer) Est GFR (Non-Af Amer) POC Glucose (mg/dL) 97 Random Glucose Calcium Blood Type Antibody Screen Crossmatch BBK History Checked 12/22/18 05:10 WBC RBC Hgb Hct MCV MCH MCHC RDW Plt Count MPV Neut % (Auto) Lymph % (Auto) Hubbard % (Auto) Eos % (Auto) Baso % (Auto) Neut # (Auto) Lymph # (Auto) Hubbard # (Auto) Eos # (Auto) Baso # (Auto) PT INR APTT Fibrinogen Sodium 135 Potassium 3.1 L Chloride 109 H Carbon Dioxide 23 Anion Gap 6 L BUN 11 Creatinine 0.5 L Est GFR ( Amer) > 60 Est GFR (Non-Af Amer) > 60 POC Glucose (mg/dL) Random Glucose 81 Calcium 7.3 L Blood Type Antibody Screen Crossmatch BBK History Checked Fingerstick Blood Sugar Results: 97 Critical Care Progress Note - Nutrition Nutrition: Nutrition Category Date Time Status Liquid Diet [DIET] Diets 12/21/18 Lunch Active <CroftLuis Alberton - Last Filed: 12/22/18 18:43> Assessment/Plan - Assessment and Plan (Free Text) Plan: Attestation: Patient seen and examined at the bedside with Resident Dr. Sabrina Blakely; and I agree with her outline of plans and management documented above as discussed on AM rounds; reflecting my review of all applicable clinical data, and participation in the care of the patient throughout the day in ICU; today, December 22, 2018.
--- NOTE | 2018-12-22 22:34 | CP.PCM.PN ---
Subjective - Date & Time of Evaluation Date of Evaluation: 12/22/18 Time of Evaluation: 17:00 - Subjective Subjective: Appears comfortable Objective - Vital Signs/Intake and Output Vital Signs (last 24 hours): Temp Pulse Resp BP Pulse Ox 98.8 F 113 H 25 H 165/89 H 98 12/22/18 20:00 12/22/18 21:57 12/22/18 21:57 12/22/18 21:57 12/22/18 21:57 Intake and Output: 12/22/18 12/23/18 18:59 06:59 Intake Total 1580 460 Output Total 2300 850 Balance -720 -390 - Medications Medications: Current Medications Cyanocobalamin (Vitamin B12 1000 Mcg/Ml Inj) 1,000 mcg IM DAILY [facility] [place] Last Admin: 12/22/18 10:02 Dose: 1,000 mcg Haloperidol Lactate (Haldol) 2 mg IM Q6 PRN PRN Reason: Agitation Last Admin: 12/19/18 13:11 Dose: 2 mg Iron Sucrose 200 mg/ Sodium (Chloride) 110 mls @ 110 mls/hr IVPB DAILY MATT Stop: 12/25/18 09:01 Last Admin: 12/22/18 14:42 Dose: 110 mls/hr Lactated Ringer's (Lactated Ringer's) 1,000 mls @ 150 mls/hr IV .Q6H40M [facility] [place] Last Admin: 12/22/18 16:47 Dose: 150 mls/hr Pantoprazole Sodium 40 mg/ (Sodium Chloride) 100 mls @ 20 mls/hr IVPB Q5H [facility] [place] Last Admin: 12/22/18 21:43 Dose: 20 mls/hr Insulin Human Regular (Humulin R) 0 units SC ACCU-CHECK MATT; Protocol Last Admin: 12/22/18 17:08 Dose: Not Given Lorazepam (Ativan) 0.5 mg IVP Q6 PRN PRN Reason: Agitation Last Admin: 12/22/18 20:42 Dose: 0.5 mg - Labs Labs: 12/22/18 05:10 12/22/18 05:10 PT 11.6 Seconds (9.8-13.1) 12/22/18 05:10 INR 1.0 12/22/18 05:10 APTT 26.5 Seconds (25.6-37.1) 12/22/18 05:10 - Head Exam Head Exam: ATRAUMATIC - Eye Exam Eye Exam: Normal appearance - ENT Exam ENT Exam: Mucous Membranes Dry - Respiratory Exam Respiratory Exam: Decreased Breath Sounds - Cardiovascular Exam Cardiovascular Exam: +S1, +S2 - GI/Abdominal Exam GI & Abdominal Exam: Normal Bowel Sounds Assessment and Plan (1) Coagulopathy Assessment & Plan: dilutional coagulopathy and likely nutritional component s/p vit k s/p FFP fibrinogen improved Status: Acute (2) Thrombocytopenia Assessment & Plan: dilutional coagulopathy improved s/p FFP Status: Acute (3) Anemia Assessment & Plan: multifactorial B12 deficiency - on IM B12 supplementation iron deficiency - likely chronic GI blood loss, s/p transfusion support, on IV iron, GI evaluation Status: Acute
[2018-12-23] MEDS: Pantoprazole 40 MG in Sodium Chloride 0.9% 100 ML IVPB SCH ×2 (02:32→08:29)
[2018-12-23] MEDS: Lactated Ringer's 1,000 ML IV SCH (04:18)
[2018-12-23 05:03] LABS: BASO % 0.3 % (0.0-2.0); EOS # 0.1 K/uL (0.0-0.7); EOS % 1.9 % (0.0-4.0); HEMOGLOBIN 9.1 g/dL (12.0-18.0); LYMPH # 0.9 K/uL (1.0-4.3); LYMPH % 11.7 % (20.0-40.0); MEAN CELL VOLUME 93.7 fl (80.0-94.0); MEAN CORPUSCULAR HEMOGLOBIN 31.1 pg (27.0-31.0); MEAN CORPUSCULAR HGB CONC 33.2 g/dL (33.0-37.0); MEAN PLATELET VOLUME 8.2 fl (7.2-11.7); MONO # 0.6 K/uL (0.0-0.8); MONO % 8.2 % (0.0-10.0); NEUT # 5.8 K/uL (1.8-7.0); NEUT % 77.9 % (50.0-75.0); NRBC % 0.2 % (0.0-0.0); RBC 2.92 Mil/uL (4.40-5.90); WHITE BLOOD COUNT 7.5 K/uL (4.8-10.8)
[2018-12-23 05:35] LABS: BLOOD UREA NITROGEN 8 mg/dl (9-20); CALCIUM 7.9 mg/dL (8.4-10.2); GFR NON-AFRICAN AMERICAN > 60
[2018-12-23] MEDS: Insulin Regular 100 units/ml SC SCH ×4 (06:21→23:34)
--- NOTE | 2018-12-23 09:55 | CP.CCUPN ---
<Latricia Blakely - Last Filed: 12/23/18 10:38> CCU Subjective - Physician Review Events Since Last Encounter (Free Text): Pt seen/examined/discussed in rounds. He is awake and alert, agitated at times and had been pulling on lines overnight; required frequent orientation and redirection. No specific complaints from patient. Pt was admitted with Hgb 4.6 and had several episodes of melena several days ago. GI and heme/onc consulted. Endoscopy was planned but held due to labile Hgb levels; nuclear med bleeding scan completed in the meantime with no evidence of bleeding. Hematology has recommended Vit K and FFP, IM B12 injections, and venofer. Overall, pt has received total of 13 units of PRBC and 3 units FFP during hosp stay so far. This mornings labs show Hgb 9.1, improvement from yest. Pending endoscopy today. Pertinent labs: WBC 7.5 Hgb 9.1 Hct 27.4 PLT 118 Na 136 K 3.7 Cl 105 CO2 26 BUN 8 Cr 0.6 GFR > 60 Glucose 96 Physical Exam: General: appears stated age male, somewhat unkempt HEENT: atraumatic, normocephalic, eyes open, speaking Resp: bilateral breath sounds and air movement CV: S1,S2, RRR Abd: soft, +bs Ext: no edema, has dry calluses on soles of feet, mycotic nails Assessment/Plan: Severe Anemia, improved - s/p 13 U PRBC and 3U FFP; - unclear etiology - GI bleeding scan reported as no evidence of acute GI bleed however pt had dip in Hgb since then ( - pending endoscopy today - venofer as per heme/onc - may be due to coagulopathy - fibrin low, FDP high vs iron deficiency - iron low, % iron sat low as well - Continue protonix Vitamin B12 deficiency - Vit B 12 under 200 - Heme/onc consulted; started on 1000 mcg B12 IM daily Hypokalemia - Resolved on todays lab draw Schizophrenia/Mental Health - Pt on zyprexa at home, compliance unclear, psych rec to reassess when stable - Re-consult psych today Diet - Liquid/puree diet due to poor dentition DVT prophylaxis - SCDs Pt seen/discussed w/ Dr. Croft. CCU Objective - Vital Signs / Intake & Output Vital Signs (Last 4 hours): Vital Signs Temp Pulse Resp BP Pulse Ox 05/10/19 08:00 98.8 F 100 H 17 162/86 H 96 12/23/18 06:00 91 H 25 H 136/83 98 Intake and Output (Last 8hrs): Intake & Output 12/22/18 12/23/18 12/23/18 22:59 06:59 14:59 Intake Total 890 1080 120 Output Total 1550 600 150 Balance -660 480 -30 Weight 182 lb Intake: IV 480 900 120 Intake, Piggyback 260 180 Oral 100 0 Blood Product 0 Red Blood Cells Cpd As1 0 Lr Unit [id number] Other 50 Red Blood Cells Cpd As1 50 Lr Unit [id number] Output: Urine 1550 600 150 Urine, Voided 1550 600 150 Other: # Voids Urine, Voided 2 1 - Physical Exam Pharnyx: Positive for: Normal - Medications Active Medications: Active Medications Generic Name Dose Route Start Last Admin Trade Name Freq PRN Reason Stop Dose Admin Cyanocobalamin 1,000 mcg 12/20/18 09:00 12/23/18 08:30 Vitamin B12 1000 Mcg/Ml Inj IM 1,000 mcg DAILY MATT Administration Haloperidol Lactate 2 mg 12/18/18 17:36 12/19/18 13:11 Haldol IM 2 mg Q6 PRN Administration Agitation Iron Sucrose 200 mg/ Sodium 110 mls @ 110 mls/hr 12/20/18 09:00 12/23/18 08:30 Chloride IVPB 12/25/18 09:01 110 mls/hr DAILY MATT Administration Lactated Ringer's 1,000 mls @ 150 mls/hr 12/20/18 02:46 12/22/18 16:47 Lactated Ringer's IV 150 mls/hr .Q6H40M MATT Administration Pantoprazole Sodium 40 mg/ 100 mls @ 20 mls/hr 12/21/18 04:45 12/23/18 08:29 Sodium Chloride IVPB 20 mls/hr Q5H MATT Administration 8 MG/HR Lactated Ringer's 1,000 mls @ 100 mls/hr 12/23/18 04:15 12/23/18 04:18 Lactated Ringer's IV 100 mls/hr .Q10H MATT Administration Insulin Human Regular 0 units 12/16/18 23:00 12/23/18 06:21 Humulin R SC Not Given ACCU-CHECK MATT Protocol Lorazepam 0.5 mg 12/22/18 00:00 12/22/18 20:42 Ativan IVP 0.5 mg Q6 PRN Administration Agitation - Patient Studies Lab Studies: Lab Studies 12/23/18 12/23/18 12/20/18 Range/Units 04:56 04:56 02:46 WBC 7.5 (4.8-10.8) K/uL RBC 2.92 L (4.40-5.90) Mil/uL Hgb 9.1 L D (12.0-18.0) g/dL Hct 27.4 L (35.0-51.0) % MCV 93.7 (80.0-94.0) fl MCH 31.1 H (27.0-31.0) pg MCHC 33.2 (33.0-37.0) g/dL RDW 15.0 H (11.5-14.5) % Plt Count 118 L (130-400) K/uL MPV 8.2 (7.2-11.7) fl Neut % (Auto) 77.9 H (50.0-75.0) % Lymph % (Auto) 11.7 L (20.0-40.0) % [place] % (Auto) 8.2 (0.0-10.0) % Eos % (Auto) 1.9 (0.0-4.0) % Baso % (Auto) 0.3 (0.0-2.0) % Neut # (Auto) 5.8 (1.8-7.0) K/uL Lymph # (Auto) 0.9 L (1.0-4.3) K/uL [place] # (Auto) 0.6 (0.0-0.8) K/uL Eos # (Auto) 0.1 (0.0-0.7) K/uL Baso # (Auto) 0.0 (0.0-0.2) K/uL Sodium 136 (132-148) mmol/l Potassium 3.7 (3.6-5.0) MMOL/L Chloride 105 (98-107) mmol/L Carbon Dioxide 26 (22-30) mmol/L Anion Gap 9 L (10-20) BUN 8 L (9-20) mg/dl Creatinine 0.6 L (0.8-1.5) mg/dl Est GFR ( Amer) > 60 Est GFR (Non-Af Amer) > 60 Random Glucose 96 (75-110) mg/dL Calcium 7.9 L (8.4-10.2) mg/dL Blood Type B POSITIVE Antibody Screen Negative Crossmatch See Detail BBK History Checked Patient has bt Laboratory Results - last 24 hr 12/20/18 12/23/18 12/23/18 02:46 04:56 04:56 WBC 7.5 RBC 2.92 L Hgb 9.1 L D Hct 27.4 L MCV 93.7 MCH 31.1 H MCHC 33.2 RDW 15.0 H Plt Count 118 L MPV 8.2 Neut % (Auto) 77.9 H Lymph % (Auto) 11.7 L [place] % (Auto) 8.2 Eos % (Auto) 1.9 Baso % (Auto) 0.3 Neut # (Auto) 5.8 Lymph # (Auto) 0.9 L [place] # (Auto) 0.6 Eos # (Auto) 0.1 Baso # (Auto) 0.0 Sodium 136 Potassium 3.7 Chloride 105 Carbon Dioxide 26 Anion Gap 9 L BUN 8 L Creatinine 0.6 L Est GFR ( Amer) > 60 Est GFR (Non-Af Amer) > 60 Random Glucose 96 Calcium 7.9 L Blood Type B POSITIVE Antibody Screen Negative Crossmatch See Detail BBK History Checked Patient has bt Fingerstick Blood Sugar Results: 98 Critical Care Progress Note - Nutrition Nutrition: Nutrition Category Date Time Status NPO Diet [DIET] Diets 12/23/18 Breakfast Active <Luis Alberto Croft - Last Filed: 12/23/18 15:47> Assessment/Plan - Assessment and Plan (Free Text) Plan: Attestation: Patient seen and examined at the bedside with Resident Dr. Sabrina Blakely; and I agree with her outline of plans and management documented above as discussed on AM rounds; reflecting my review of all applicable clinical data, and participation in the care of the patient throughout the day in ICU; today, December 23, 2018. EGD findings reviewed, Protonix changed to Q12H, if hgb stable over the next 24H, transfer out of ICU.
[2018-12-23] MEDS ORDERED: EPINEPHrine 1 mg/ml (1:1000) Inj ONE (10:24)
[2018-12-23] MEDS ORDERED: Lactated Ringer's 500 ML IV ONE (10:30)
[2018-12-23] MEDS ORDERED: Etomidate 20 mg/10ml Inj IV ONE (11:31)
[2018-12-23] MEDS ORDERED: Propofol 10 mg/ml Inj (20 ML) ONE (11:31)
[2018-12-23] MEDS: Sucralfate 1 gm/10 ml Oral Susp UD PO SCH ×3 (12:38→21:19)
[2018-12-23 18:44] LABS: HEMOGLOBIN 9.1 g/dL (12.0-18.0); MEAN CELL VOLUME 94.2 fl (80.0-94.0); MEAN CORPUSCULAR HEMOGLOBIN 30.4 pg (27.0-31.0); MEAN CORPUSCULAR HGB CONC 32.2 g/dL (33.0-37.0); RBC 2.98 Mil/uL (4.40-5.90); RED CELL DISTRIBUTION WIDTH 15.6 % (11.5-14.5); WHITE BLOOD COUNT 8.2 K/uL (4.8-10.8)
--- NOTE | 2018-12-23 22:08 | CP.PCM.PN ---
Subjective - Date & Time of Evaluation Date of Evaluation: 12/23/18 Time of Evaluation: 13:00 - Subjective Subjective: No complaints. S/p EGD - nonbleeding duodenal ulcer Objective - Vital Signs/Intake and Output Vital Signs (last 24 hours): Temp Pulse Resp BP Pulse Ox 98.1 F 90 12 148/70 98 12/23/18 20:00 12/23/18 21:50 12/23/18 21:50 12/23/18 21:50 12/23/18 21:50 Intake and Output: 12/23/18 12/24/18 18:59 06:59 Intake Total 2350 400 Output Total 2050 500 Balance 300 -100 - Medications Medications: Current Medications Cyanocobalamin (Vitamin B12 1000 Mcg/Ml Inj) 1,000 mcg IM DAILY [facility] Last Admin: 12/23/18 08:30 Dose: 1,000 mcg Haloperidol Lactate (Haldol) 2 mg IM Q6 PRN PRN Reason: Agitation Last Admin: 12/19/18 13:11 Dose: 2 mg Iron Sucrose 200 mg/ Sodium (Chloride) 110 mls @ 110 mls/hr IVPB DAILY [facility] Stop: 12/25/18 09:01 Last Admin: 12/23/18 08:30 Dose: 110 mls/hr Lactated Ringer's (Lactated Ringer's) 1,000 mls @ 150 mls/hr IV .Q6H40M [facility] Last Admin: 12/22/18 16:47 Dose: 150 mls/hr Lactated Ringer's (Lactated Ringer's) 1,000 mls @ 100 mls/hr IV .Q10H [facility] Last Admin: 12/23/18 04:18 Dose: 100 mls/hr Insulin Human Regular (Humulin R) 0 units SC ACCU-CHECK [facility]; Protocol Last Admin: 12/23/18 16:54 Dose: Not Given Lorazepam (Ativan) 0.5 mg IVP Q6 PRN PRN Reason: Agitation Last Admin: 12/22/18 20:42 Dose: 0.5 mg Pantoprazole Sodium (Protonix Inj) 40 mg IVP DAILY [facility] Last Admin: 12/23/18 21:42 Dose: 40 mg Sucralfate (Carafate Oral Susp) 1 gm PO QID [facility] Last Admin: 12/23/18 21:19 Dose: 1 gm - Labs Labs: 12/23/18 18:25 12/23/18 04:56 PT 11.6 Seconds (9.8-13.1) 12/22/18 05:10 INR 1.0 12/22/18 05:10 APTT 26.5 Seconds (25.6-37.1) 12/22/18 05:10 - Head Exam Head Exam: ATRAUMATIC - Eye Exam Eye Exam: Normal appearance - ENT Exam ENT Exam: Mucous Membranes Dry - Respiratory Exam Respiratory Exam: NORMAL BREATHING PATTERN - Cardiovascular Exam Cardiovascular Exam: +S1, +S2 - GI/Abdominal Exam GI & Abdominal Exam: Normal Bowel Sounds Assessment and Plan (1) Coagulopathy Assessment & Plan: dilutional coagulopathy and likely nutritional component s/p vit k s/p FFP fibrinogen improved Status: Acute (2) Thrombocytopenia Assessment & Plan: dilutional coagulopathy improved s/p FFP Status: Acute (3) Anemia Assessment & Plan: multifactorial B12 deficiency - on IM B12 supplementation iron deficiency - likely chronic GI blood loss, s/p transfusion support, on IV iron, GI evaluation Status: Acute
[2018-12-24] MEDS: Lactated Ringer's 1,000 ML IV SCH ×3 (02:31→20:30)
[2018-12-24 05:06] LABS: HEMOGLOBIN 8.7 g/dL (12.0-18.0); MEAN CELL VOLUME 93.5 fl (80.0-94.0); MEAN CORPUSCULAR HEMOGLOBIN 30.5 pg (27.0-31.0); MEAN CORPUSCULAR HGB CONC 32.6 g/dL (33.0-37.0); RBC 2.84 Mil/uL (4.40-5.90); RED CELL DISTRIBUTION WIDTH 15.4 % (11.5-14.5); WHITE BLOOD COUNT 7.9 K/uL (4.8-10.8)
[2018-12-24] MEDS: Insulin Regular 100 units/ml SC SCH ×4 (06:02→22:14)
[2018-12-24] MEDS: Sucralfate 1 gm/10 ml Oral Susp UD PO SCH ×4 (08:42→21:07)
[2018-12-25] MEDS: Lactated Ringer's 1,000 ML IV SCH ×2 (02:57→06:17)
[2018-12-25] MEDS: Sucralfate 1 gm/10 ml Oral Susp UD PO SCH ×4 (08:24→21:16)
[2018-12-25] MEDS: Insulin Regular 100 units/ml SC SCH ×4 (08:25→22:22)
--- NOTE | 2018-12-25 23:15 | CP.PCM.PN ---
Subjective - Date & Time of Evaluation Date of Evaluation: 12/24/18 Time of Evaluation: 15:00 - Subjective Subjective: No complaints. Objective - Vital Signs/Intake and Output Vital Signs (last 24 hours): Temp Pulse Resp BP Pulse Ox 97.9 F 82 18 133/74 98 12/25/18 15:44 12/25/18 15:44 12/25/18 15:44 12/25/18 15:44 12/25/18 15:44 - Medications Medications: Current Medications Cyanocobalamin (Vitamin B12 1000 Mcg/Ml Inj) 1,000 mcg IM DAILY [facility] Last Admin: 12/25/18 08:24 Dose: 1,000 mcg Haloperidol Lactate (Haldol) 2 mg IM Q6 PRN PRN Reason: Agitation Last Admin: 12/19/18 13:11 Dose: 2 mg Insulin Human Regular (Humulin R) 0 units SC ACCU-CHECK [facility]; Protocol Last Admin: 12/25/18 22:22 Dose: Not Given Lorazepam (Ativan) 0.5 mg IVP Q6 PRN PRN Reason: Agitation Last Admin: 12/22/18 20:42 Dose: 0.5 mg Pantoprazole Sodium (Protonix Inj) 40 mg IVP DAILY [facility] Last Admin: 12/25/18 08:24 Dose: 40 mg Sucralfate (Carafate Oral Susp) 1 gm PO QID [facility] Last Admin: 12/25/18 21:16 Dose: 1 gm - Labs Labs: 12/24/18 04:15 12/23/18 04:56 PT 11.6 Seconds (9.8-13.1) 12/22/18 05:10 INR 1.0 12/22/18 05:10 APTT 26.5 Seconds (25.6-37.1) 12/22/18 05:10 - Head Exam Head Exam: ATRAUMATIC - Eye Exam Eye Exam: Normal appearance - ENT Exam ENT Exam: Mucous Membranes Dry - Respiratory Exam Respiratory Exam: NORMAL BREATHING PATTERN - Cardiovascular Exam Cardiovascular Exam: +S1, +S2 - GI/Abdominal Exam GI & Abdominal Exam: Normal Bowel Sounds Assessment and Plan (1) Anemia Assessment & Plan: multifactorial B12 deficiency - on IM B12 supplementation iron deficiency - likely chronic GI blood loss, s/p transfusion support, on IV iron, GI evaluation Status: Acute
--- NOTE | 2018-12-25 23:16 | CP.PCM.PN ---
Subjective - Date & Time of Evaluation Date of Evaluation: 12/25/18 Time of Evaluation: 16:00 - Subjective Subjective: No complaints. Objective - Vital Signs/Intake and Output Vital Signs (last 24 hours): Temp Pulse Resp BP Pulse Ox 97.9 F 82 18 133/74 98 12/25/18 15:44 12/25/18 15:44 12/25/18 15:44 12/25/18 15:44 12/25/18 15:44 - Medications Medications: Current Medications Cyanocobalamin (Vitamin B12 1000 Mcg/Ml Inj) 1,000 mcg IM DAILY [facility] Last Admin: 12/25/18 08:24 Dose: 1,000 mcg Haloperidol Lactate (Haldol) 2 mg IM Q6 PRN PRN Reason: Agitation Last Admin: 12/19/18 13:11 Dose: 2 mg Insulin Human Regular (Humulin R) 0 units SC ACCU-CHECK [facility]; Protocol Last Admin: 12/25/18 22:22 Dose: Not Given Lorazepam (Ativan) 0.5 mg IVP Q6 PRN PRN Reason: Agitation Last Admin: 12/22/18 20:42 Dose: 0.5 mg Pantoprazole Sodium (Protonix Inj) 40 mg IVP DAILY [facility] Last Admin: 12/25/18 08:24 Dose: 40 mg Sucralfate (Carafate Oral Susp) 1 gm PO QID [facility] Last Admin: 12/25/18 21:16 Dose: 1 gm - Labs Labs: 12/24/18 04:15 12/23/18 04:56 PT 11.6 Seconds (9.8-13.1) 12/22/18 05:10 INR 1.0 12/22/18 05:10 APTT 26.5 Seconds (25.6-37.1) 12/22/18 05:10 - Head Exam Head Exam: ATRAUMATIC - Eye Exam Eye Exam: Normal appearance - ENT Exam ENT Exam: Mucous Membranes Dry - Respiratory Exam Respiratory Exam: NORMAL BREATHING PATTERN - Cardiovascular Exam Cardiovascular Exam: +S1, +S2 - GI/Abdominal Exam GI & Abdominal Exam: Normal Bowel Sounds Assessment and Plan (1) Anemia Assessment & Plan: multifactorial B12 deficiency - on IM B12 supplementation iron deficiency - likely chronic GI blood loss, s/p transfusion support, on IV iron, GI evaluation Status: Acute
[2018-12-26] MEDS: Insulin Regular 100 units/ml SC SCH ×4 (06:21→22:44)
--- NOTE | 2018-12-26 08:44 | CP.PCM.PN ---
Subjective - Date & Time of Evaluation Date of Evaluation: 12/20/18 Time of Evaluation: 11:00 - Subjective Subjective: Noted low hgb less than 7 Has no fever Much more awake. Objective - Vital Signs/Intake and Output Vital Signs (last 24 hours): Temp Pulse Resp BP Pulse Ox 98.0 F 83 20 153/84 H 98 12/26/18 07:54 12/26/18 07:54 12/26/18 07:54 12/26/18 07:54 12/26/18 07:54 - Medications Medications: Current Medications Cyanocobalamin (Vitamin B12 1000 Mcg/Ml Inj) 1,000 mcg IM DAILY [facility] Last Admin: 12/25/18 08:24 Dose: 1,000 mcg Haloperidol Lactate (Haldol) 2 mg IM Q6 PRN PRN Reason: Agitation Last Admin: 12/19/18 13:11 Dose: 2 mg Insulin Human Regular (Humulin R) 0 units SC ACCU-CHECK [facility]; Protocol Last Admin: 12/26/18 06:21 Dose: Not Given Lorazepam (Ativan) 0.5 mg IVP Q6 PRN PRN Reason: Agitation Last Admin: 12/22/18 20:42 Dose: 0.5 mg Pantoprazole Sodium (Protonix Inj) 40 mg IVP DAILY [facility] Last Admin: 12/25/18 08:24 Dose: 40 mg Sucralfate (Carafate Oral Susp) 1 gm PO QID [facility] Last Admin: 12/25/18 21:16 Dose: 1 gm - Labs Labs: 12/24/18 04:15 12/23/18 04:56 PT 11.6 Seconds (9.8-13.1) 12/22/18 05:10 INR 1.0 12/22/18 05:10 APTT 26.5 Seconds (25.6-37.1) 12/22/18 05:10 - Head Exam Head Exam: NORMAL INSPECTION - Eye Exam Eye Exam: Normal appearance - ENT Exam ENT Exam: Mucous Membranes Moist - Respiratory Exam Respiratory Exam: Clear to Ausculation Bilateral - Cardiovascular Exam Cardiovascular Exam: REGULAR RHYTHM - GI/Abdominal Exam GI & Abdominal Exam: Normal Bowel Sounds - Neurological Exam Neurological Exam: Awake, Oriented x3 Assessment and Plan (1) Anemia Status: Acute (2) Bleeding acute gastric ulcer Status: Acute - Assessment and Plan (Free Text) Plan: Monitor cbc transfuse as necessary GI follow up for endoscopy
--- NOTE | 2018-12-26 08:47 | CP.PCM.PN ---
Subjective - Date & Time of Evaluation Date of Evaluation: 12/22/18 Time of Evaluation: 11:00 - Subjective Subjective: Patient remains stable. But Hgb remains low despite multiple transfusions. For endoscopy. GI bleed scan showed no active site of bleed. Objective - Vital Signs/Intake and Output Vital Signs (last 24 hours): Temp Pulse Resp BP Pulse Ox 98.0 F 83 20 153/84 H 98 12/26/18 07:54 12/26/18 07:54 12/26/18 07:54 12/26/18 07:54 12/26/18 07:54 - Medications Medications: Current Medications Cyanocobalamin (Vitamin B12 1000 Mcg/Ml Inj) 1,000 mcg IM DAILY [facility] Last Admin: 12/25/18 08:24 Dose: 1,000 mcg Haloperidol Lactate (Haldol) 2 mg IM Q6 PRN PRN Reason: Agitation Last Admin: 12/19/18 13:11 Dose: 2 mg Insulin Human Regular (Humulin R) 0 units SC ACCU-CHECK [facility]; Protocol Last Admin: 12/26/18 06:21 Dose: Not Given Lorazepam (Ativan) 0.5 mg IVP Q6 PRN PRN Reason: Agitation Last Admin: 12/22/18 20:42 Dose: 0.5 mg Pantoprazole Sodium (Protonix Inj) 40 mg IVP DAILY [facility] Last Admin: 12/25/18 08:24 Dose: 40 mg Sucralfate (Carafate Oral Susp) 1 gm PO QID [facility] Last Admin: 12/25/18 21:16 Dose: 1 gm - Labs Labs: 12/24/18 04:15 12/23/18 04:56 PT 11.6 Seconds (9.8-13.1) 12/22/18 05:10 INR 1.0 12/22/18 05:10 APTT 26.5 Seconds (25.6-37.1) 12/22/18 05:10 - Head Exam Head Exam: NORMAL INSPECTION - ENT Exam ENT Exam: Mucous Membranes Moist - Respiratory Exam Respiratory Exam: Clear to Ausculation Bilateral - Cardiovascular Exam Cardiovascular Exam: REGULAR RHYTHM - GI/Abdominal Exam GI & Abdominal Exam: Normal Bowel Sounds Assessment and Plan (1) Anemia Status: Acute (2) Bleeding acute gastric ulcer Status: Acute - Assessment and Plan (Free Text) Plan: Cont meds Cont tx Cont monitor cbc for endoscopy
--- NOTE | 2018-12-26 08:52 | CP.PCM.PN ---
Subjective - Date & Time of Evaluation Date of Evaluation: 12/23/18 Time of Evaluation: 18:00 - Subjective Subjective: Patient had endoscopy which showed duodenal ulcer. Hgb 9.1 after endoscopy and hemostasis. Has no fever. Objective - Vital Signs/Intake and Output Vital Signs (last 24 hours): Temp Pulse Resp BP Pulse Ox 98.0 F 83 20 153/84 H 98 12/26/18 07:54 12/26/18 07:54 12/26/18 07:54 12/26/18 07:54 12/26/18 07:54 - Medications Medications: Current Medications Cyanocobalamin (Vitamin B12 1000 Mcg/Ml Inj) 1,000 mcg IM DAILY [facility] Last Admin: 12/25/18 08:24 Dose: 1,000 mcg Haloperidol Lactate (Haldol) 2 mg IM Q6 PRN PRN Reason: Agitation Last Admin: 12/19/18 13:11 Dose: 2 mg Insulin Human Regular (Humulin R) 0 units SC ACCU-CHECK [facility]; Protocol Last Admin: 12/26/18 06:21 Dose: Not Given Lorazepam (Ativan) 0.5 mg IVP Q6 PRN PRN Reason: Agitation Last Admin: 12/22/18 20:42 Dose: 0.5 mg Pantoprazole Sodium (Protonix Inj) 40 mg IVP DAILY [facility] Last Admin: 12/25/18 08:24 Dose: 40 mg Sucralfate (Carafate Oral Susp) 1 gm PO QID [facility] Last Admin: 12/25/18 21:16 Dose: 1 gm - Labs Labs: 12/24/18 04:15 12/23/18 04:56 PT 11.6 Seconds (9.8-13.1) 12/22/18 05:10 INR 1.0 12/22/18 05:10 APTT 26.5 Seconds (25.6-37.1) 12/22/18 05:10 - Head Exam Head Exam: NORMAL INSPECTION - Eye Exam Eye Exam: Normal appearance - ENT Exam ENT Exam: Mucous Membranes Moist - Respiratory Exam Respiratory Exam: NORMAL BREATHING PATTERN - Cardiovascular Exam Cardiovascular Exam: REGULAR RHYTHM - GI/Abdominal Exam GI & Abdominal Exam: Normal Bowel Sounds Assessment and Plan (1) Anemia Status: Acute (2) Bleeding acute gastric ulcer Status: Acute - Assessment and Plan (Free Text) Plan: Cont meds Cont tx monito cbc if stable will transfer to reg floor Cont Iv antacid
--- NOTE | 2018-12-26 08:53 | CP.PCM.PN ---
Subjective - Date & Time of Evaluation Date of Evaluation: 12/24/18 Time of Evaluation: 16:00 - Subjective Subjective: Patient remains stable Hgb is stable Has no chest pain or SOB. Objective - Vital Signs/Intake and Output Vital Signs (last 24 hours): Temp Pulse Resp BP Pulse Ox 98.0 F 83 20 153/84 H 98 12/26/18 07:54 12/26/18 07:54 12/26/18 07:54 12/26/18 07:54 12/26/18 07:54 - Medications Medications: Current Medications Cyanocobalamin (Vitamin B12 1000 Mcg/Ml Inj) 1,000 mcg IM DAILY [facility] Last Admin: 12/25/18 08:24 Dose: 1,000 mcg Haloperidol Lactate (Haldol) 2 mg IM Q6 PRN PRN Reason: Agitation Last Admin: 12/19/18 13:11 Dose: 2 mg Insulin Human Regular (Humulin R) 0 units SC ACCU-CHECK [facility]; Protocol Last Admin: 12/26/18 06:21 Dose: Not Given Lorazepam (Ativan) 0.5 mg IVP Q6 PRN PRN Reason: Agitation Last Admin: 12/22/18 20:42 Dose: 0.5 mg Pantoprazole Sodium (Protonix Inj) 40 mg IVP DAILY [facility] Last Admin: 12/25/18 08:24 Dose: 40 mg Sucralfate (Carafate Oral Susp) 1 gm PO QID [facility] Last Admin: 12/25/18 21:16 Dose: 1 gm - Labs Labs: 12/24/18 04:15 12/23/18 04:56 PT 11.6 Seconds (9.8-13.1) 12/22/18 05:10 INR 1.0 12/22/18 05:10 APTT 26.5 Seconds (25.6-37.1) 12/22/18 05:10 - Head Exam Head Exam: NORMAL INSPECTION - Eye Exam Eye Exam: Normal appearance - ENT Exam ENT Exam: Mucous Membranes Moist - Respiratory Exam Respiratory Exam: Clear to Ausculation Bilateral - Cardiovascular Exam Cardiovascular Exam: REGULAR RHYTHM - GI/Abdominal Exam GI & Abdominal Exam: Normal Bowel Sounds Assessment and Plan (1) Anemia Status: Acute (2) Bleeding acute gastric ulcer Status: Acute (3) Physical debility Status: Acute - Assessment and Plan (Free Text) Plan: Cont meds regular floor Dc plans to subacute rehab
--- NOTE | 2018-12-26 08:55 | CP.PCM.PN ---
Subjective - Date & Time of Evaluation Date of Evaluation: 12/25/18 Time of Evaluation: 11:30 - Subjective Subjective: patient feels a lot better Tolerate reg diet Has no abd pain Hgb remains stable Objective - Vital Signs/Intake and Output Vital Signs (last 24 hours): Temp Pulse Resp BP Pulse Ox 98.0 F 83 20 153/84 H 98 12/26/18 07:54 12/26/18 07:54 12/26/18 07:54 12/26/18 07:54 12/26/18 07:54 - Medications Medications: Current Medications Cyanocobalamin (Vitamin B12 1000 Mcg/Ml Inj) 1,000 mcg IM DAILY [facility] Last Admin: 12/25/18 08:24 Dose: 1,000 mcg Haloperidol Lactate (Haldol) 2 mg IM Q6 PRN PRN Reason: Agitation Last Admin: 12/19/18 13:11 Dose: 2 mg Insulin Human Regular (Humulin R) 0 units SC ACCU-CHECK [facility]; Protocol Last Admin: 12/26/18 06:21 Dose: Not Given Lorazepam (Ativan) 0.5 mg IVP Q6 PRN PRN Reason: Agitation Last Admin: 12/22/18 20:42 Dose: 0.5 mg Pantoprazole Sodium (Protonix Inj) 40 mg IVP DAILY [facility] Last Admin: 12/25/18 08:24 Dose: 40 mg Sucralfate (Carafate Oral Susp) 1 gm PO QID [facility] Last Admin: 12/25/18 21:16 Dose: 1 gm - Labs Labs: 12/24/18 04:15 12/23/18 04:56 PT 11.6 Seconds (9.8-13.1) 12/22/18 05:10 INR 1.0 12/22/18 05:10 APTT 26.5 Seconds (25.6-37.1) 12/22/18 05:10 - Head Exam Head Exam: NORMAL INSPECTION - Eye Exam Eye Exam: Normal appearance - ENT Exam ENT Exam: Mucous Membranes Moist - Respiratory Exam Respiratory Exam: Clear to Ausculation Bilateral - Cardiovascular Exam Cardiovascular Exam: REGULAR RHYTHM - GI/Abdominal Exam GI & Abdominal Exam: Normal Bowel Sounds Assessment and Plan (1) Anemia Status: Acute (2) Bleeding acute gastric ulcer Status: Acute (3) Physical debility Status: Acute - Assessment and Plan (Free Text) Plan: Cont meds Cont tx PT eval subacute rehab for debility
[2018-12-26] MEDS: Sucralfate 1 gm/10 ml Oral Susp UD PO SCH ×4 (09:45→21:27)
[2018-12-26] MEDS: Pantoprazole 40 mg EC Tab PO SCH (16:20)
--- NOTE | 2018-12-26 19:24 | CP.PCM.PN ---
Subjective - Date & Time of Evaluation Date of Evaluation: 12/26/18 Time of Evaluation: 10:00 - Subjective Subjective: patient seen and examined at bedside. Interim events noted No complaints offered at this time denies cp/sob/fever/chills. available diagnostic data reviewed Review of Systems All systems: reviewed and no additional remarkable complaints except mentioned above Objective Vital Signs Stable - Constitutional Appears: Non-toxic, No Acute Distress Head Exam: NORMAL INSPECTION Eye Exam: Normal appearance Respiratory Exam: NORMAL BREATHING PATTERN Cardiovascular Exam: +S1, +S2 GI & Abdominal Exam: Soft Neurological Exam: Alert, Awake Psychiatric exam: Normal Affect, Normal Mood Skin Exam: Normal Color, Warm Assessment and Plan monitor vitals monitor labs Cont meds Cont tx consultants appreciated input dispo planning rest of plan as ordered Objective - Vital Signs/Intake and Output Vital Signs (last 24 hours): Temp Pulse Resp BP Pulse Ox 99.1 F 84 19 147/91 H 98 12/26/18 15:57 12/26/18 15:57 12/26/18 15:57 12/26/18 15:57 12/26/18 15:57 - Medications Medications: Current Medications Cyanocobalamin (Vitamin B12 1000 Mcg/Ml Inj) 1,000 mcg IM DAILY [facility] Last Admin: 12/26/18 10:51 Dose: 1,000 mcg Haloperidol Lactate (Haldol) 2 mg IM Q6 PRN PRN Reason: Agitation Last Admin: 12/19/18 13:11 Dose: 2 mg Insulin Human Regular (Humulin R) 0 units SC ACCU-CHECK [facility]; Protocol Last Admin: 12/26/18 16:21 Dose: Not Given Pantoprazole Sodium (Protonix Ec Tab) 40 mg PO BID [facility] Last Admin: 12/26/18 16:20 Dose: 40 mg Sucralfate (Carafate Oral Susp) 1 gm PO QID [facility] Last Admin: 12/26/18 16:12 Dose: 1 gm - Labs Labs: 12/24/18 04:15 12/23/18 04:56 PT 11.6 Seconds (9.8-13.1) 12/22/18 05:10 INR 1.0 12/22/18 05:10 APTT 26.5 Seconds (25.6-37.1) 12/22/18 05:10 Assessment and Plan (1) Anemia Status: Acute
--- NOTE | 2018-12-27 01:57 | PQF ---
PROVIDER RESPONSE TEXT: Pt originally suffered acute kidney injury secondary to hypovolemic shock, as well as previous active bleed. As noted in the renal function studies, a marked improvement in BUN, Creatinine, and GFR were noted as the patient clinically improved. Original diagnosis: Acute Kidney Injury secondary to hypovolemic shock. This has since resolved. REVIEWER QUERY TEXT: Documentation Clarification Your help is requested in clarifying the following clinical documentation, if you can please further specify in the medical record and discharge summary. Please clarify if there is an associated diagnosis or not to go along with the following BUN and crea tinine results: BUN 92-> 20, Creatinine 1.8-> 0.7, GFR 39--> 60 Recent fall and on a diet. : lethargy and weakness. 200 pound weight loss over the past year. + hypov olemic shock RX IVF, PRBC The patient's Clinical Indicators include: BUN 92-> 20, Creatinine 1.8-> 0.7, GFR 39--> 60 Recent fall and on a diet. : lethargy and weakness. 200 pound weight loss over the past year. + hypov olemic shock RX IVF, PRBC Query created by: Kayleen Nieto on 12/21/2018 11:29 AM Electronically signed by: Munir Suresh APN 12/27/2018 1:54 AM
[2018-12-27] MEDS: Insulin Regular 100 units/ml SC SCH ×2 (06:05→12:20)
[2018-12-27 06:15] LABS: MEAN CELL VOLUME 94.6 fl (80.0-94.0); MEAN CORPUSCULAR HEMOGLOBIN 30.5 pg (27.0-31.0); MEAN CORPUSCULAR HGB CONC 32.3 g/dL (33.0-37.0); RBC 2.61 Mil/uL (4.40-5.90); RED CELL DISTRIBUTION WIDTH 16.6 % (11.5-14.5); WHITE BLOOD COUNT 6.5 K/uL (4.8-10.8)
[2018-12-27 06:50] LABS: BLOOD UREA NITROGEN 7 mg/dl (9-20); CALCIUM 7.7 mg/dL (8.4-10.2); GFR NON-AFRICAN AMERICAN > 60
[2018-12-27 08:16] VITALS: BP 131/74; PULSE 82; RESP 19; TEMP 97.6; O2SAT 99
[2018-12-27] MEDS: Sucralfate 1 gm/10 ml Oral Susp UD PO SCH ×2 (09:00→13:20)
[2018-12-27] MEDS: Pantoprazole 40 mg EC Tab PO SCH (09:00)
--- NOTE | 2018-12-27 09:21 | CP.PCM.CON ---
History of Present Illness - History of Present Illness History of Present Illness: Psychiatry consult follow-up note CC: "I'm okay." HPI: 58 yo male w/ h/o schizophrenia, admitted w/ anemia and acute bleeding ulcer, now improved. Patient denies acute depression/anxiety/AH/VH/paranoia/delusions/SI/HI. He denies acute psychiatric complaints and does not want psychiatric admission at this time. He is agreeable to outpatient psychiatric follow-up upon discharge. No violence/aggression/agitation or behavioral issues. Impression: 58 yo male w/ h/o schizophrenia, denies acute psychiatric complaints. -Patient is psychiatrically cleared for discharge -Restart Zyprexa 10 mg PO HS -Refer to outpatient psychiatric treatment upon discharge Past Patient History - Infectious Disease Hx of Infectious Diseases: None - Past Medical History & Family History Past Medical History?: Yes - Past Social History Alcohol: None Drugs: Denies - CARDIAC Hx Hypertension: Yes - PULMONARY Hx Respiratory Disorders: No - NEUROLOGICAL Hx Neurological Disorder: No - HEENT Hx HEENT Problems: No - RENAL Hx Chronic Kidney Disease: No - ENDOCRINE/METABOLIC Hx Endocrine Disorders: No - HEMATOLOGICAL/ONCOLOGICAL Hx Anemia: Yes - INTEGUMENTARY Hx Dermatological Problems: No - MUSCULOSKELETAL/RHEUMATOLOGICAL Hx Musculoskeletal Disorders: No Hx Falls: Yes - GASTROINTESTINAL Hx Vomiting: Yes (vomitting blood x 1 day) - GENITOURINARY/GYNECOLOGICAL Hx Genitourinary Disorders: No - PSYCHIATRIC Hx Anxiety: Yes Hx Depression: Yes Hx Schizophrenia: Yes - SURGICAL HISTORY Hx Surgeries: No Other/Comment: Rt. 3rd finger surgery - ANESTHESIA Hx Anesthesia: No Hx Anesthesia Reactions: No Hx Malignant Hyperthermia: No Meds Allergies/Adverse Reactions: Allergies Allergy/AdvReac Type Severity Reaction Status Date / Time No Known Allergies Allergy Verified 04/06/15 12:04 - Medications Medications: Current Medications Cyanocobalamin (Vitamin B12 1000 Mcg/Ml Inj) 1,000 mcg IM DAILY [facility] Last Admin: 12/27/18 09:05 Dose: 1,000 mcg Haloperidol Lactate (Haldol) 2 mg IM Q6 PRN PRN Reason: Agitation Last Admin: 12/19/18 13:11 Dose: 2 mg Insulin Human Regular (Humulin R) 0 units SC ACCU-CHECK [facility]; Protocol Last Admin: 12/27/18 06:05 Dose: Not Given Olanzapine (Zyprexa) 10 mg PO HS [facility] Pantoprazole Sodium (Protonix Ec Tab) 40 mg PO BID [facility] Last Admin: 12/27/18 09:00 Dose: 40 mg Sucralfate (Carafate Oral Susp) 1 gm PO QID [facility] Last Admin: 12/27/18 09:00 Dose: 1 gm Results - Vital Signs Recent Vital Signs: Last Vital Signs Temp 97.6 F 12/27/18 08:16 Pulse 82 12/27/18 08:16 Resp 19 12/27/18 08:16 BP 131/74 12/27/18 08:16 Pulse Ox 99 12/27/18 08:16 - Labs Result Diagrams: 12/27/18 05:50 12/27/18 05:50 Labs: Laboratory Results - last 24 hr 12/22/18 12/22/18 12/22/18 11:24 16:47 20:42 WBC RBC Hgb Hct MCV MCH MCHC RDW Plt Count Sodium Potassium Chloride Carbon Dioxide Anion Gap BUN Creatinine Est GFR ( Amer) Est GFR (Non-Af Amer) POC Glucose (mg/dL) 120 H 120 H 101 Random Glucose Calcium Crossmatch 12/23/18 12/23/18 12/23/18 06:18 11:15 12:29 WBC RBC Hgb Hct MCV MCH MCHC RDW Plt Count Sodium Potassium Chloride Carbon Dioxide Anion Gap BUN Creatinine Est GFR ( Amer) Est GFR (Non-Af Amer) POC Glucose (mg/dL) 98 115 H Random Glucose Calcium Crossmatch See Detail 12/23/18 12/23/18 12/24/18 16:53 20:48 05:27 WBC RBC Hgb Hct MCV MCH MCHC RDW Plt Count Sodium Potassium Chloride Carbon Dioxide Anion Gap BUN Creatinine Est GFR ( Amer) Est GFR (Non-Af Amer) POC Glucose (mg/dL) 111 H 108 124 H Random Glucose Calcium Crossmatch 12/24/18 12/26/18 12/26/18 11:26 11:10 16:03 WBC RBC Hgb Hct MCV MCH MCHC RDW Plt Count Sodium Potassium Chloride Carbon Dioxide Anion Gap BUN Creatinine Est GFR ( Amer) Est GFR (Non-Af Amer) POC Glucose (mg/dL) 115 H 127 H 113 H Random Glucose Calcium Crossmatch 05/13/19 05/14/19 05/14/19 21:28 05:20 05:50 WBC 6.5 RBC 2.61 L Hgb 8.0 L Hct 24.7 L MCV 94.6 H MCH 30.5 MCHC 32.3 L RDW 16.6 H Plt Count 224 Sodium Potassium Chloride Carbon Dioxide Anion Gap BUN Creatinine Est GFR ( Amer) Est GFR (Non-Af Amer) POC Glucose (mg/dL) 119 H 121 H Random Glucose Calcium Crossmatch 12/27/18 05:50 WBC RBC Hgb Hct MCV MCH MCHC RDW Plt Count Sodium 136 Potassium 3.7 Chloride 101 Carbon Dioxide 34 H Anion Gap 5 L BUN 7 L Creatinine 0.7 L Est GFR ( Amer) > 60 Est GFR (Non-Af Amer) > 60 POC Glucose (mg/dL) Random Glucose 98 Calcium 7.7 L Crossmatch
--- NOTE | 2018-12-27 10:06 | CP.PCM.PCO ---
Assessment & Plan - Assessment and Plan (Free Text) Assessment: pt. seen and examined reports feeling well, denies brbpr, tolelating regular diet hgb stable at 8.0, s/p total 15 units of PRBC and 3 u FFP this admission pt. reports compliance w / psych meds, [facility]
--- NOTE | 2018-12-27 14:01 | CP.PCM.PN ---
Subjective - Date & Time of Evaluation Date of Evaluation: 12/26/18 Time of Evaluation: 11:30 - Subjective Subjective: no overnight events Objective - Vital Signs/Intake and Output Vital Signs (last 24 hours): Temp Pulse Resp BP Pulse Ox 97.6 F 82 19 131/74 99 12/27/18 08:16 12/27/18 08:16 12/27/18 08:16 12/27/18 08:16 12/27/18 08:16 - Labs Labs: 12/27/18 05:50 12/27/18 05:50 PT 11.6 Seconds (9.8-13.1) 12/22/18 05:10 INR 1.0 12/22/18 05:10 APTT 26.5 Seconds (25.6-37.1) 12/22/18 05:10 - Neck Exam Neck Exam: Normal Inspection - Respiratory Exam Respiratory Exam: Clear to Ausculation Bilateral, NORMAL BREATHING PATTERN - Cardiovascular Exam Cardiovascular Exam: REGULAR RHYTHM - GI/Abdominal Exam GI & Abdominal Exam: Soft, Normal Bowel Sounds Assessment and Plan - Assessment and Plan (Free Text) Assessment: 58 yo male with UGIB hgb stable dc planning ppi q12 carafate qid egd in 8 weeks
--- NOTE | 2018-12-29 00:20 | CP.PCM.PN ---
Subjective - Date & Time of Evaluation Date of Evaluation: 12/22/18 Time of Evaluation: 10:00 - Subjective Subjective: Pt seen and assessed at bedside. Nuclear GI bleed scan was unremarkable. Reports feeling better. Review of Systems: Reviewed and no additional remarkable complaints except fatigue. Objective Appears: Weak. Calm, Non-toxic, No Acute Distress. Head Exam: NORMAL INSPECTION, normocephalic. Eye Exam: Normal eye inspection, EOMI, PERRLA. Respiratory Exam: NORMAL BREATHING PATTERN, breath sounds diminished. Cardiovascular Exam: +S1, +S2. RRR. GI & Abdominal Exam: Soft, non-tender, non-distended. Neurological Exam: Pt able to follow basic commands, answers in short, mouthed words. Psychiatric exam: Normal mood. Calm and cooperative. Skin exam: Pale, warm and dry. Assessment/Impression/Plan: 1.) Anemia/Potential GI bleed -Has received 12 units PRBC and 3 FFP. Pt to receive 1 more unit PRBC today. -Consults input appreciated. -For endoscopy. -Anemia possibly secondary to coagulopathy. -Replenish electrolytes accordingly. -Continue current treatment. Objective - Vital Signs/Intake and Output Vital Signs (last 24 hours): Temp Pulse Resp BP Pulse Ox 97.6 F 82 19 131/74 99 12/27/18 08:16 12/27/18 08:16 12/27/18 08:16 12/27/18 08:16 12/27/18 08:16 - Labs Labs: 12/27/18 05:50 12/27/18 05:50 PT 11.6 Seconds (9.8-13.1) 12/22/18 05:10 INR 1.0 12/22/18 05:10 APTT 26.5 Seconds (25.6-37.1) 12/22/18 05:10 Assessment and Plan (1) Schizophrenia Status: Acute (2) Severe anemia Status: Acute (3) Anemia Status: Acute (4) History of peptic ulcer disease Status: Acute
== END 2018-12-27 13:37 | disposition home or self-care (01) | DRG 871 ==
LOC: SUPCPDRO 17:23 → H.ER 17:23 → H.ERHOLD 18:35 → H.ICU/CCU 21:55 → H.MEDSURG1 12-24 15:56
PROVIDERS: ADMIT Family Medicine; ATTEND Family Medicine
PROC: 30233N1 Transfusion of Nonautologous Red Blood Cells into Peripheral Vein, Percutaneous Approach (ICD-10-PCS; principal; 2018-12-16)
PROC: 30233K1 Transfusion of Nonautologous Frozen Plasma into Peripheral Vein, Percutaneous Approach (ICD-10-PCS; 2018-12-16)
PROC: 06HM33Z Insertion of Infusion Device into Right Femoral Vein, Percutaneous Approach (ICD-10-PCS; 2018-12-17)
PROC: 0DB68ZX Excision of Stomach, Via Natural or Artificial Opening Endoscopic, Diagnostic (ICD-10-PCS; 2018-12-23)
DX: R57.1 Hypovolemic shock (principal); G93.41 Metabolic encephalopathy; F20.0 Paranoid schizophrenia; E87.2 Acidosis; D62 Acute posthemorrhagic anemia; N17.9 Acute kidney failure, unspecified; K57.92 Diverticulitis of intestine, part unspecified, without perforation or abscess without bleeding; K92.2 Gastrointestinal hemorrhage, unspecified; D68.9 Coagulation defect, unspecified; D69.59 Other secondary thrombocytopenia; E53.8 Deficiency of other specified B group vitamins; K26.9 Duodenal ulcer, unspecified as acute or chronic, without hemorrhage or perforation; L60.3 Nail dystrophy; E87.6 Hypokalemia; I10 Essential (primary) hypertension; F32.9 Major depressive disorder, single episode, unspecified; Z79.82 Long term (current) use of aspirin; D63.8 Anemia in other chronic diseases classified elsewhere; F17.200 Nicotine dependence, unspecified, uncomplicated; R53.81 Other malaise; K31.89 Other diseases of stomach and duodenum